=== PATIENT | male | born 1940 | race Caucasian/White ===

== ENCOUNTER 2017-12-31 15:12 | Inpatient (IN) | payer MEDICARE, OTHER ==
[~2017-12-31] VITALS: Ht 182.9 cm; Wt 101.4 kg
[~2017-12-31 15:12] MED LIST: AGM875T PO; ASP81CT PO; AVADART PO; CINNAMON PO; CYAN10007 PO; DCS100C PO; E400C PO; ENAL10TA PO; ERGO400C PO; GARLIC PO; GLIP10TA13 PO; HYDR118S10 PO; LIRA0.6P SQ; MAGN27TA4 PO; METF-380 PO; MG T1TAB2 PO; MYLANTA PO; OMEG1CAP51 PO; OXYC-12 PO; POTA99TA7 PO; SMT80CT PO; TMSL.4C PO; VITA100T4 PO; VITA80006 PO; WRF5T PO; ZLP10T PO; [UNRECOGNIZED DRUG - OTHER] PO
[2017-12-31] MEDS ORDERED: NS IV 1000 ML 1,000 ML IV SCH ×2 (15:21→17:48)
--- NOTE | 2017-12-31 15:37 | ED Fall/Injury ---
General Stated Complaint: WEAK LEGS Source: patient, EMS ([facility]) Exam Limitations: no limitations History of Present Illness Date Seen by Provider: December 31, 2017 Time Seen by Provider: 15:16 Initial Comments Patient presents to ER by [facility] with a chief complaint that he was walking from the bathroom back to his living room when he started to feel weak in his knees so he lowered himself to the ground in to his knees and then laid down because he couldn't stand back up. The weakness past but he had to have EMS come help him up. By the time they got to him he said he was on his feet and walked over and got on the gurney with just his cane. He does have a history of diabetes as well as he is on eloquent but he denies actually falling , striking his head or losing consciousness. 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 He has not missed any of his medications nor taken double that he is aware of. He is on Glimepiride. He rates his pain in both of his knees as 8 out of 10 but does not want anything for it. EMS has not given him anything for pain yet either. Patient was incontinent of bowel and bladder which she says is new for him. He says this was because he was unable to get up. He thinks he was laying there for probably about 2 hours. Allergies and Home Medications Allergies Coded Allergies: No Known Drug Allergies (Unverified , 08/08/10) Home Medications Al Hydrox/Mg Trisilicate 1 Tab.chew Tab.chew, 2 TAB.CHEW PO Q6H PRN, (Reported) Aspirin 81 Mg Chew, 81 MG PO BID, (Reported) Docusate Sodium 100 Mg Cap, 200 MG PO BID, (Reported) Enalapril Maleate 10 Mg Tablet, 20 MG PO DAILY, (Reported) Glipizide 10 Mg Tablet, 1 EACH PO BID, (Reported) Hydrocodone/Acetaminophen 1 Each Tablet, 1 EACH PO Q6H PRN, (Reported) Liraglutide 0.6 Mg/0.1 Ml Pen.injctr, 1.8 MG SQ DAILY Prescribed by: JAZMYN MOSCOSO on 02/26/12 1211 Metformin Hcl 1,000 Mg Tablet, 1 EACH PO BID WITH MEALS, (Reported) [place]-3 Fatty Acids/Fish Oil 1 Each Capsule, 1 EACH PO BID, (Reported) Simethicone 80 Mg Chew, 160 MG PO PC, (Reported) Tamsulosin Hcl 0.4 Mg Cap, 0.4 MG PO DAILY, (Reported) Warfarin Sodium 5 Mg Tablet, 10 MG PO DAILY, (Reported) Zolpidem Tartrate 10 Mg Tab, 10 MG PO HS PRN, (Reported) [mylanta susp] , 30 ML PO QID PRN, (Reported) Patient Home Medication List Home Medication List Reviewed: Yes Review of Systems Constitutional: No chills, No diaphoresis, No fever, No malaise Eyes: Denies Blindness, Denies Blurred Vision Ears, Nose, Mouth, Throat: denies ear pain, denies ear discharge; nose discharge (clear); denies epistaxis, denies throat pain, denies throat swelling Respiratory: No cough, No phlegm, No short of breath, No wheezing Cardiovascular: No chest pain, No Hx of Intervention, No palpitations, No syncope, No vascular heart diseas Gastrointestinal: No abdominal pain, No constipation, No diarrhea, No nausea; other (incontinence of bowel and bladder) Genitourinary: No dysuria Musculoskeletal: No back pain; joint pain (bilateral knees) Past Dqofkja-Aflzit-Kwcprp Hx Patient Social History Alcohol Use: Occasionally Uses Alcohol Beverage of Choice: Beer, Whiskey, Wine Recreational Drug Use: No Smoking Status: Former Smoker Type Used: Cigarettes Former Smoker, Quit: December 31, 2017 Recent Foreign Travel: No Contact w/Someone Who Travel: No Immunizations Up To Date Date of Influenza Vaccine: May 13, 2011 Past Medical History Reproductive Disorders: No Physical Exam Vital Signs Vital Signs - First Documented 12/31/17 15:43 Temp 97.5 Pulse 95 Resp 18 B/P (MAP) 190/85 (120) O2 Delivery Room Air Capillary Refill : General Appearance: WD/WN, no apparent distress HEENT: PERRL/EOMI, normal ENT inspection, TMs normal, pharynx normal Neck: non-tender, full range of motion, supple, normal inspection Cardiovascular: normal peripheral pulses, regular rate, rhythm, no edema Respiratory: chest non-tender, lungs clear, normal breath sounds, no respiratory distress, no accessory muscle use Peripheral Pulses: 2+ Dorsalis Pedis (R), 2+ Left Dors-Pedis (L), 2+ Radial Pulses (R), 2+ Radial Pulses (L) Gastrointestinal: normal bowel sounds, non tender, soft Back: normal inspection, no vertebral tenderness Extremities: other (ecchymosis over bilateral knees with pain to range of motion. Antalgic gait with assistance. 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 as tested, no motor/sensory deficits, alert, normal mood/affect, oriented x 3 Skin: warm/dry, ecchymosis (dio knees) Progress/Results/Core Measures Results/Orders Lab Results Laboratory Tests Test 12/31/17 16:30 12/31/17 18:00 Range/Units White Blood Count 18.3 H 4.3-11.0 10^3/uL Red Blood Count 4.71 4.35-5.85 10^6/uL Hemoglobin 13.8 13.3-17.7 G/DL Hematocrit 39 L 40-54 % Mean Corpuscular Volume 83 80-99 FL Mean Corpuscular Hemoglobin 29 25-34 PG Mean Corpuscular Hemoglobin Concent 35 32-36 G/DL Red Cell Distribution Width 13.1 10.0-14.5 % Platelet Count 190 130-400 10^3/uL Mean Platelet Volume 11.4 H 7.4-10.4 FL Neutrophils (%) (Auto) 86 H 42-75 % Lymphocytes (%) (Auto) 7 L 12-44 % Monocytes (%) (Auto) 7 0-12 % Eosinophils (%) (Auto) 0 0-10 % Basophils (%) (Auto) 0 0-10 % Neutrophils # (Auto) 15.7 H 1.8-7.8 X 10^3 Lymphocytes # (Auto) 1.2 1.0-4.0 X 10^3 Monocytes # (Auto) 1.3 H 0.0-1.0 X 10^3 Eosinophils # (Auto) 0.1 0.0-0.3 10^3/uL Basophils # (Auto) 0.1 0.0-0.1 10^3/uL Neutrophils % (Manual) 85 % Lymphocytes % (Manual) 7 % Monocytes % (Manual) 6 % Eosinophils % (Manual) 0 % Basophils % (Manual) 0 % Band Neutrophils 2 % Blood Morphology Comment NORMAL Sodium Level 140 135-145 MMOL/L Potassium Level 4.9 3.6-5.0 MMOL/L Chloride Level 111 H 98-107 MMOL/L Carbon Dioxide Level 18 L 21-32 MMOL/L Anion Gap 11 5-14 MMOL/L Blood Urea Nitrogen 28 H 7-18 MG/DL Creatinine 1.65 H 0.60-1.30 MG/DL Estimat Glomerular Filtration Rate 41 BUN/Creatinine Ratio 17 Glucose Level 200 H 70-105 MG/DL Calcium Level 9.4 8.5-10.1 MG/DL Magnesium Level 2.1 1.8-2.4 MG/DL Total Bilirubin 0.4 0.1-1.0 MG/DL Aspartate Amino Transf (AST/SGOT) 16 5-34 U/L Alanine Aminotransferase (ALT/SGPT) 14 0-55 U/L Alkaline Phosphatase 52 40-136 U/L Total Creatine Kinase 121 30-200 U/L Troponin I < 0.30 <0.30 NG/ML B-Type Natriuretic Peptide 14.2 <100.0 PG/ML Total Protein 7.2 6.4-8.2 GM/DL Albumin 4.1 3.2-4.5 GM/DL Urine Color YELLOW Urine Clarity SLIGHTLY CLOUDY Urine pH 5 5-9 Urine Specific [place] 1.025 H 1.016-1.022 Urine Protein 3+ H NEGATIVE Urine Glucose (UA) 3+ H NEGATIVE Urine Ketones 1+ H NEGATIVE Urine Nitrite NEGATIVE NEGATIVE Urine Bilirubin NEGATIVE NEGATIVE Urine Urobilinogen NORMAL NORMAL MG/DL Urine Leukocyte Esterase 3+ H NEGATIVE Urine RBC (Auto) 2+ H NEGATIVE Urine RBC 0-2 /HPF Urine WBC 50-100 H /HPF Urine Squamous Epithelial Cells NONE /HPF Urine Crystals NONE /LPF Urine Amorphous Sediment MOD LILIA URATES H /LPF Urine Bacteria LARGE H /HPF Urine Casts NONE /LPF Urine Mucus NEGATIVE /LPF Urine Culture Indicated YES My Orders Orders - KASSI FINLEY BNP (12/31/17 15:21) Cbc With Automated Diff (12/31/17 15:21) Comprehensive Metabolic Panel (12/31/17 15:21) Magnesium (12/31/17 15:21) Troponin I (12/31/17 15:21) Ua Culture If Indicated (12/31/17 15:21) Chest 1 View, Ap/Pa Only (12/31/17 15:21) Saline Lock/Iv-Start (12/31/17 15:21) Ns Iv 1000 Ml (Sodium Chloride 0.9%) (12/31/17 15:21) Ekg Tracing (12/31/17 15:21) Continuous Ekg Monitoring (12/31/17 15:21) Creatine Kinase (12/31/17 15:37) Knee, 3 Views, Bilateral (12/31/17 15:37) Manual Differential (12/31/17 16:30) Acetaminophen Tablet (Tylenol Tablet) (12/31/17 18:00) Ns Iv 1000 Ml (Sodium Chloride 0.9%) (12/31/17 17:48) Urine Culture (12/31/17 18:00) Ceftriaxone Injection (Rocephin Injectio (12/31/17 18:45) Vital Signs/I&O 12/31/17 15:43 Temp 97.5 Pulse 95 Resp 18 B/P (MAP) 190/85 (120) O2 Delivery Room Air Progress Progress Note #1: Time: 15:42 Progress Note EKG, chest x-ray, blood and urine to look for a cause for why he got weak. We' ll check a CPK since he was down. He was walking afterwards which is good however we'll still x-ray of the knees looking for fracture. He may have just bruised them secondary to Eliquis use. He has declined CT of the head and neck after discussing the risks, benefits and alternatives with the provider. Echocardiogram [address] Malone. Aortic root, left atrium normal Aortic valve mildly calcified and sclerotic. No significant aortic regurg or stenosis. Mitral valve not well seen. No mitral regurgitation. Right-sided heart is enlarged. Mild right systolic dysfunction. Mild tricuspid regurgitation. EF 50%. Progress Note #2: Time: 18:55 Progress Note Had increasing pain in his back for which he usually uses [place]. We gave him 50 g of fentanyl and some Zofran after having a single episode of vomitus. We will start Rocephin 1 g IV. Initial ECG Impression Date: December 31, 2017 Initial ECG Impression Time: 16:16 Initial ECG Rate: 93 Initial ECG Rhythm: Normal Sinus Initial ECG Intervals: QT (478) Initial ECG Impression: Normal, Nonspecific Changes (right bundle-branch block) Diagnostic Imaging Diagonstic Imaging: Xray Plain Films/CT/US/NM/MRI: chest (1v) Comments [facility] [place], [place] NAME: YULISSA WILDER [facility] REC#: [id number] PT STATUS: REG ER : 1940 PHYSICIAN: KASSI FINLEY MD ADMIT DATE: 12/31/17/ER Draft Date of Exam:12/31/17 CHEST 1 VIEW, AP/PA ONLY INDICATION: Dizzy, incontinence. COMPARISON: 03/13/2012. FINDINGS: Heavy calcifications of the costochondral cartilage of the distal first ribs noted bilaterally incidentally. There is chronic elevation of the right diaphragm. There is no focal consolidation. The heart size and pulmonary vascularity are stable. IMPRESSION: Elevated right diaphragm as a chronic finding stable. No acute cardiopulmonary abnormality apparent. Dictated on workstation # [id number] Dict: 12/31/17 1718 Trans: 12/31/17 1724 [id number] Interpreted by: FOREIGN SHELTON Electronically signed by: Reviewed: Reviewed by Me Diagonstic Imaging: Xray Plain Films/CT/US/NM/MRI: knee (dio) Comments [facility] [place] [place] NAME: YULISSA WILDER [facility] REC#: [id number] PT STATUS: REG ER : 1940 PHYSICIAN: KASSI FINLEY MD ADMIT DATE: 12/31/17/ER Draft Date of Exam:12/31/17 KNEE, 3 VIEWS, BILATERAL INDICATION: Knee pain. 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 No convincing evidence for substantial joint effusion. Atherosclerotic vascular calcifications are chronic. Some chronic appearing well-corticated fragmentation at the anterior tibial apophysis and meniscal calcifications. IMPRESSION: No acute appearing abnormality. Dictated on workstation # [id number] Dict: 12/31/17 1719 Trans: 12/31/17 1725 [id number] Interpreted by: FOREIGN SHELTON Electronically signed by: Reviewed: Reviewed by Me Departure Communication (Admissions) Time/Spoke to Admitting Phy: 18:[address] Garcia and she agrees with antibiotics, fluids and nausea medicine and she will see the patient in the morning. Observation. Impression Primary Impression: Fall Qualified Codes: W19.XXXA - Unspecified fall, initial encounter Additional Impressions: UTI (urinary tract infection) Qualified Codes: N30.00 - Acute cystitis without hematuria Nausea & vomiting Qualified Codes: R11.2 - Nausea with vomiting, unspecified Disposition: ADMITTED INPATIENT Condition: Stable Admissions Decision to Admit Reason: Admit from ER (General) Decision to Admit/Date: December 31, 2017 Time/Decision to Admit Time: 18:44 Departure-Patient Inst. Referrals: [facility] (PCP) Primary Care Physician Copy Copies To 1: YANDEL MCGEE TITUS J December 31, 2017 15:37
[2017-12-31 16:54] LABS: BASOPHILS # (AUTO) 0.1 10^3/uL (0.0-0.1); BASOPHILS % (AUTO) 0 % (0-10); EOSINOPHILS # (AUTO) 0.1 10^3/uL (0.0-0.3); EOSINOPHILS % (AUTO) 0 % (0-10); HEMATOCRIT 39 % (40-54); HEMOGLOBIN 13.8 G/DL (13.3-17.7); LYMPHOCYTES # (AUTO) 1.2 X 10^3 (1.0-4.0); LYMPHOCYTES % (AUTO) 7 % (12-44); MEAN CORPUSCULAR HEMOGLOBIN 29 PG (25-34); MEAN CORPUSCULAR HGB CONC 35 G/DL (32-36); MEAN CORPUSCULAR VOLUME 83 FL (80-99); MEAN PLATELET VOLUME 11.4 FL (7.4-10.4); MONOCYTES # (AUTO) 1.3 X 10^3 (0.0-1.0); MONOCYTES % (AUTO) 7 % (0-12); NEUTROPHILS # (AUTO) 15.7 X 10^3 (1.8-7.8); NEUTROPHILS % (AUTO) 86 % (42-75); PLATELET COUNT 190 10^3/uL (130-400); RED BLOOD COUNT 4.71 10^6/uL (4.35-5.85); RED CELL DISTRIBUTION WIDTH 13.1 % (10.0-14.5); WHITE BLOOD COUNT 18.3 10^3/uL (4.3-11.0)
[2017-12-31 17:13] LABS: ALANINE AMINOTRANSFERASE 14 U/L (0-55); ALBUMIN 4.1 GM/DL (3.2-4.5); ALKALINE PHOSPHATASE 52 U/L (40-136); BILIRUBIN,TOTAL 0.4 MG/DL (0.1-1.0); BUN/CREATININE RATIO 17; CALCIUM 9.4 MG/DL (8.5-10.1); CARBON DIOXIDE 18 MMOL/L (21-32); CHLORIDE 111 MMOL/L (98-107); CREATINE KINASE 121 U/L (30-200); CREATININE SERUM 1.65 MG/DL (0.60-1.30); GFR ESTIMATED 41; GLUCOSE 200 MG/DL (70-105); MAGNESIUM 2.1 MG/DL (1.8-2.4); POTASSIUM 4.9 MMOL/L (3.6-5.0); SODIUM 140 MMOL/L (135-145); TOTAL PROTEIN 7.2 GM/DL (6.4-8.2)
--- NOTE | 2017-12-31 17:25 | Diagnostic Imaging Report ---
INDICATION: Dizzy, incontinence. COMPARISON: 03/13/2012. FINDINGS: Heavy calcifications of the costochondral cartilage of the distal first ribs noted bilaterally incidentally. There is chronic elevation of the right diaphragm. There is no focal consolidation. The heart size and pulmonary vascularity are stable. IMPRESSION: Elevated right diaphragm as a chronic finding stable. No acute cardiopulmonary abnormality apparent. Dictated by: Dictated on workstation # [id number]
--- NOTE | 2017-12-31 17:25 | Diagnostic Imaging Report ---
INDICATION: Knee pain. 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 No convincing evidence for substantial joint effusion. Atherosclerotic vascular calcifications are chronic. Some chronic appearing well-corticated fragmentation at the anterior tibial apophysis and meniscal calcifications. IMPRESSION: No acute appearing abnormality. Dictated by: Dictated on workstation # [id number]
[2017-12-31 17:30] LABS: BAND NEUTROPHILS 2 %; BASOPHILS % (MANUAL) 0 %; EOSINOPHILS % (MANUAL) 0 %; LYMPHOCYTES % (MANUAL) 7 %; MONOCYTES % (MANUAL) 6 %; NEUTROPHILS % (MANUAL) 85 %; RBC MORPH NORMAL
[2017-12-31] MEDS ORDERED: ACETAMINOPHEN 500 MG TAB (TYLENOL) PO ONE (18:00)
[2017-12-31 18:12] LABS: BILIRUBIN,URINE NEGATIVE (NEGATIVE); CLARITY,URINE SLIGHTLY CLOUDY; COLOR,URINE YELLOW; GLUCOSE, URINE (UA) 3+ (NEGATIVE); KETONES,URINE 1+ (NEGATIVE); LEUKOCYTE ESTERASE ,URINE 3+ (NEGATIVE); NITRITE,URINE NEGATIVE (NEGATIVE); PH,URINE 5 (5-9); PROTEIN,URINE 3+ (NEGATIVE); UROBILINOGEN,URINE NORMAL (NORMAL)
[2017-12-31 18:23] LABS: AMORPHOUS SEDIMENT,UR MOD AMOR URATES /LPF; BACTERIA,URINE LARGE /HPF; RBC,URINE 0-2 /HPF; WBC,URINE 50-100 /HPF
[2017-12-31] MEDS ORDERED: ONDANSETRON 4 MG/2 ML (SDV) Z0FRAN ONE (18:38)
[2017-12-31] MEDS ORDERED: fentaNYL INJECTION 100 MCG/2 ML AMP ONE (18:38)
[2017-12-31] MEDS ORDERED: fentaNYL INJECTION 100 MCG/2 ML AMP IVP ONE (18:45)
[2017-12-31] MEDS ORDERED: cefTRIAXone INJECTION 1,000 MG in NS (IVPB) 50 ML IV ONE (18:45)
[2017-12-31] MEDS ORDERED: ONDANSETRON 4 MG/2 ML (SDV) Z0FRAN IVP ONE (18:45)
--- OUTSIDE RECORDS SUMMARY | 2017-12-31 19:30 | XMS REPORT ---
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 42649238 Problem Other hammer toe(s) (acquired), right foot M20.41 Active 793632706 Problem DM neuro manif type II E11.49 Active 68557901 Problem Essential hypertension I10 Active 80123902 Problem Diabetes type 2, uncontrolled E11.65 Active 512229858 Problem Urge incontinence of urine N39.41 Active 88842515 Problem 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 804020708 ALLERGIES No Information SOCIAL HISTORY Never Assessed PLAN OF CARE VITAL SIGNS MEDICATIONS Medication Instructions Dosage Frequency Start Date End Date Duration Status Oxybutynin Chloride 5 mg Orally Twice a day 1 tablet 12h 07 Oct, 2016 Oct, 0 days Active RESULTS No Results PROCEDURES No Known procedures IMMUNIZATIONS No Known Immunizations MEDICAL (GENERAL) HISTORY Type Description Date Medical History hypertension Medical History type II diabetes Medical History hyperlipidemia Medical History deep vein thrombosis bilateral legs 2010 Medical History 05/03/2015 Monofilament Abnormal. Medical History 09/23/2014 Micro alb. Normal Medical History Abnormality of gait Medical History Personal history of venous thrombosis and embolism Medical History Hypertension Medical History Weak Bladder Dr. Cox 12/[address] abdomen 03/22/17 -IVC filter within lumen of inferior vena cava, lung bases showed 2mm nodule in lingula Surgical History cholecystectomy-by Dr. Espinal 2012 Surgical History arthroscopic knee surgery-left for torn cartilidge 2003, 2007 Surgical History permanent vena cave filter placed at [facility] by Surgical History TURP-Dr. Kirk 2009 Hospitalization History Just surgeries listed above
--- OUTSIDE RECORDS SUMMARY | 2017-12-31 19:30 | XMS REPORT ---
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
--- OUTSIDE RECORDS SUMMARY | 2017-12-31 19:30 | XMS REPORT ---
Author Author JANETH PATIÑO Organization [employer] Address Unknown Phone Unavailable Care Team Providers Care Tilesetter Name Role Phone JANETH PATIÑO CP Unavailable Allergies No Known Allergies Problems Problem Type Condition Code Onset Dates Condition Status Problem Encounter for long-term (current) use of other medications V58.69 Active Problem Diabetes mellitus without mention of complication, type II or unspecified type, not stated as uncontrolled 250.00 Active Problem Personal history of venous thrombosis and embolism V12.51 Active Problem [facility] current use of anticoagulant Z79.01 Active Problem Type II or unspecified type diabetes mellitus with neurological manifestations, 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 Problem Diabetes type 2, uncontrolled E11.65 Active Problem Abnormality of gait 781.2 Active Problem Need for prophylactic vaccination and inoculation, Influenza V04.81 Active Problem Hypertension 401.9 Active Problem Other and unspecified hyperlipidemia 272.4 Active Assessment Diabetes type 2, uncontrolled E11.65 Active Assessment Encounter for long-term (current) use of other medications Z79.899 Active Problem Routine general medical examination at health care facility V70.0 Active Medications No Known Medications Procedures Procedure Coding System Code Date PROTHROMBIN TIME CPT-4 50890 Sep 01, 2015 GLUCOSE BLOOD TEST CPT-4 52142 Sep 01, 2015 Results No Known Results Summary Purpose [employer] Submission
--- OUTSIDE RECORDS SUMMARY | 2017-12-31 19:30 | XMS REPORT ---
Author Author JANETH PATIÑO [employer] Address Unknown Phone Unavailable Care Team Providers Care Installer Interior Assemblies Name Role Phone JANETH PATIÑO CP Unavailable Allergies No Known Allergies Problems Problem Type Condition Code Onset Dates Condition Status Problem Routine general medical examination at health care facility V70.0 Active Assessment group home current use of anticoagulant Z79.01 Active Problem Other and unspecified hyperlipidemia 272.4 Active Problem Abnormality of gait 781.2 Active Problem Hypertension 401.9 Active Problem Personal history of venous thrombosis and embolism V12.51 Active Problem Encounter for long-term (current) use of other medications V58.69 Active Problem Need for prophylactic vaccination and inoculation, Influenza V04.81 Active Problem Diabetes mellitus without mention of complication, type II or unspecified type, not stated as uncontrolled 250.00 Active Medications No Known Medications Procedures Procedure Coding System Code Date PROTHROMBIN TIME CPT-4 33177 Jun 09, 2015 Results No Known Results Summary Purpose [employer] Submission
--- OUTSIDE RECORDS SUMMARY | 2017-12-31 19:30 | XMS REPORT ---
Author Author JANETH PATIÑO [employer] Address Unknown Phone Unavailable Care Team Providers Care Gold Assayer Name Role Phone JANETH PATIÑO Unavailable Allergies No Known Allergies Problems Problem Type Condition Code Onset Dates Condition Status Problem Routine general medical examination at health care facility V70.0 Active Assessment Diabetes mellitus without mention of complication, type II or unspecified type, not stated as uncontrolled 250.00 Active Problem Other and unspecified hyperlipidemia 272.4 [...] not stated as uncontrolled 250.00 Active Medications Medication Code System Code Instructions Start Date End Date Status Dosage Metformin HCl NDC 51708112058 1000MG Orally Twice a day 1 tablet with a meal warfarin NDC 0 6 mg oral Once a day October 22, 2014 1 tablet Results No Known Results Summary Purpose [employer] Submission
--- OUTSIDE RECORDS SUMMARY | 2017-12-31 19:30 | XMS REPORT ---
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 current 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 of anticoagulant Z79.01 Active Problem Routine general medical examination at health care facility V70.0 Active Problem correction current use of anticoagulant Z79.01 Active Problem Type II or unspecified type diabetes mellitus with neurological manifestations, 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 Problem Diabetes type 2, uncontrolled E11.65 Active Problem Abnormality of gait 781.2 Active Problem Need for prophylactic vaccination and inoculation, Influenza V04.81 Active Problem Hypertension 401.9 Active Problem Other and unspecified hyperlipidemia 272.4 Active Medications No Known Medications Procedures Procedure Coding System Code Date PROTHROMBIN TIME CPT-4 96925 December 03, 2015 Results No Known Results Summary Purpose [employer] Submission
--- OUTSIDE RECORDS SUMMARY | 2017-12-31 19:30 | XMS REPORT ---
Author Author JANETH PATIÑO [employer] Address Unknown Phone Unavailable Care Team Providers Care Shore Man Name Role Phone JANETH PATIÑO Unavailable Allergies No Known Allergies Problems Problem Type Condition Code Onset Dates Condition Status Assessment shelter current use of anticoagulant Z79.01 Active Problem shelter current use of anticoagulant Z79.01 Active Problem [...] Coding System Code Date PROTHROMBIN TIME CPT-4 37608 Mar 17, 2016 Results No Known Results Summary Purpose [employer] Submission
--- OUTSIDE RECORDS SUMMARY | 2017-12-31 19:30 | XMS REPORT ---
Author Author JANETH PATIÑO [employer] Address Unknown Phone Unavailable Care Team Providers Care Wheel And Pinion Inspector Name Role Phone JANETH PATIÑO Unavailable Allergies No Known Allergies Problems Problem Type Condition Code Onset Dates Condition Status Assessment senior living current use of anticoagulant Z79.01 Active Problem senior living current use of anticoagulant Z79.01 Active Problem [...] Coding System Code Date PROTHROMBIN TIME CPT-4 20349 February 18, 2016 Results No Known Results Summary Purpose [employer] Submission
--- OUTSIDE RECORDS SUMMARY | 2017-12-31 19:30 | XMS REPORT ---
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 Z79.01 Active Problem Encounter for long-term (current) use of other medications V58.69 Active Problem Routine general medical examination at health care facility V70.0 Active Problem Hypertension 401.9 Active Problem Other and unspecified hyperlipidemia 272.4 Active Problem residential current use of anticoagulant Z79.01 Active Problem Diabetes mellitus without mention of complication, type II or unspecified type, not stated as uncontrolled 250.00 Active Problem Personal history of venous thrombosis and embolism V12.51 Active Problem Abnormality of gait 781.2 Active Problem Need for prophylactic vaccination and inoculation, Influenza V04.81 Active Medications No Known Medications Procedures Procedure Coding System Code Date PROTHROMBIN TIME CPT-4 76576 Jun 30, 2015 Results No Known Results Summary Purpose [employer] Submission
--- OUTSIDE RECORDS SUMMARY | 2017-12-31 19:30 | XMS REPORT ---
Author Author ISABEL CRAVEN Organization [employer] Address Unknown Phone Unavailable Care Team Providers Care Agitator Operator Name Role Phone ISABEL CRAVEN CP Unavailable Allergies No Known Allergies Problems Problem Type Condition Code Onset Dates Condition Status Assessment Encounter for immunization Z23 Active Problem Personal history of venous thrombosis and embolism V12.51 Active Assessment [facility] current use of anticoagulant Z79.01 Active Problem Diabetes type 2, uncontrolled E11.65 Active Problem long term care pharmacist current use of anticoagulant Z79.01 Active Problem Essential hypertension I10 Active Problem Other and unspecified hyperlipidemia 272.4 Active Problem Abnormality of gait 781.2 Active Problem Type II or unspecified type diabetes mellitus with neurological manifestations, 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 Problem Hypertension 401.9 Active Medications No Known Medications Procedures Procedure Coding System Code Date FLUARIX QUAD P-FREE 3 AND UP .50 2015 CPT-4 10507 Jun 09, 2016 SINGLE IMMUNIZATION ADMIN CPT-4 88973 Jun 09, 2016 PROTHROMBIN TIME CPT-4 64480 Jun 09, 2016 Results Name Result Date Reference Range Unit Abnormality Flag INR (IN HOUSE) ----INR 1.8 [id number] 1.10 - 3.30 ----PREVIOUS INR 3.2 [id number] ----CURRENT COUMADIN DOSE 5 mg M,W,F & 7.5 mg AOD 20160610 ----NEW COUMADIN DOSE no change, recheck in 1 week 20160610 Immunizations Vaccine Administration Date FLUARIX QUAD P-FREE 3 AND UP .50 2015Jun 09, 2016 Summary Purpose [employer] Submission
--- OUTSIDE RECORDS SUMMARY | 2017-12-31 19:31 | XMS REPORT ---
Author Author JACQUELINE YAN Organization [employer] Address Unknown Phone Unavailable Care Team Providers Care Infection Control Practitioner Name Role Phone JACQUELINE YAN CP Unavailable Allergies No Known Allergies Problems Problem Type Condition Code Onset Dates Condition Status Problem Routine general medical examination at health care facility V70.0 Active Problem Personal history of venous thrombosis and embolism V12.51 Active Problem Encounter for long-term (current) use of other medications V58.69 Active Assessment Type II or unspecified type diabetes mellitus with neurological manifestations, 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 Assessment Onychomycosis B35.1 Active Problem Type II or unspecified type diabetes mellitus with neurological manifestations, 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 Problem Hypertension 401.9 Active Problem residential current use of anticoagulant Z79.01 Active Problem Need for prophylactic vaccination and inoculation, Influenza V04.81 Active Problem Diabetes mellitus without mention of complication, type II or unspecified type, not stated as uncontrolled 250.00 Active Problem Other and unspecified hyperlipidemia 272.4 Active Problem Abnormality of gait 781.2 Active Medications No Known Medications Procedures Procedure Coding System Code Date [facility] VISIT ESTABLISHED PATIENT CPT-4 G0467 Jul 16, 2015 Office Visit, Est Pt., Level 3 CPT-4 07245 Jul 16, 2015 DEBRIDE NAIL, 6 OR MORE CPT-4 50542 Jul 16, 2015 Vital Signs Date/Time: Jul 16, 2015 Blood Pressure Diastolic 80 mmHg Blood Pressure Systolic 140 mmHg Height 72 in Results Name Result Date Reference Range Unit Abnormality Flag DEBRIDE NAIL >6 Summary Purpose [employer]ClinicalWorks Submission
--- OUTSIDE RECORDS SUMMARY | 2017-12-31 19:31 | XMS REPORT ---
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
--- OUTSIDE RECORDS SUMMARY | 2017-12-31 19:31 | XMS REPORT ---
Author Author JANETH PATIÑO [employer] Address Unknown Phone Unavailable Care Team Providers Care Beauty Artist Name Role Phone JANETH PATIÑO Unavailable Allergies No Known Allergies Problems Problem Type Condition ICD-9 Code Onset Dates Condition Status Problem Routine general medical examination at health care facility V70.0 Active Problem Other and unspecified hyperlipidemia 272.4 [...] Date End Date Status Dosage Metformin HCl [facility] [id number] 1000MG Orally Twice a day 1 tablet with a meal Results No Known Results Summary Purpose [employer] Submission
--- OUTSIDE RECORDS SUMMARY | 2017-12-31 19:31 | XMS REPORT ---
Author Author JANETH PATIÑO [employer] Address Unknown Phone Unavailable Care Team Providers Care Stock Patch Sawyer Name Role Phone JANETH PATIÑO Unavailable Allergies No Known Allergies Problems Problem Type Condition Code Onset Dates Condition Status Assessment care home current use of anticoagulant Z79.01 Active Problem care home current use of anticoagulant Z79.01 Active [...] Coding System Code Date PROTHROMBIN TIME CPT-4 28668 Mar 31, 2016 Results No Known Results Summary Purpose [employer]ClinicalWorks Submission
--- OUTSIDE RECORDS SUMMARY | 2017-12-31 19:31 | XMS REPORT ---
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 08959999 Problem Diabetes type 2, uncontrolled E11.65 Active 765260155 Problem retirement current use of anticoagulant Z79.01 Active 578405826 Problem Friction blister of left lower extremity, initial encounter S80.822A Active 24354384 Problem DM neuro manif type II E11.49 Active 64461728 Problem 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 965425156 Problem Essential hypertension I10 Active 35099440 Problem Other hammer toe(s) (acquired), right foot M20.41 Active 497325407 Problem Urge incontinence of urine N39.41 Active 42265489 ALLERGIES No Information ENCOUNTERS Encounter Location Date Diagnosis [id number] [id number] Sep, retirement current use of anticoagulant Z79.01 [place] [id number] [id number] Sep, [address] [id number] Aug, Friction blister of left lower extremity, subsequent encounter S80.822D ; Diabetes type 2, uncontrolled E11.65 and 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 [place] [id number] [id number] Jul, Diabetes type 2, uncontrolled E11.65 and Friction blister of left lower extremity, initial encounter S80.822A [place] [id number] [id number] Apr, Type II or unspecified type diabetes mellitus with neurological manifestations, 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 ; Encounter for immunization Z23 and Essential hypertension I10 [facility] [address] [facility] [id number] [id number] Feb, Type II or unspecified type diabetes mellitus with neurological manifestations, 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 [facility] [id number] [place] [address] Jan, Onychomycosis B35.1 ; Other hammer toe(s) (acquired), right foot M20.41 and DM neuro manif type II E11.[address] [place] [address] [id number] Jan, Type II or unspecified type diabetes mellitus with neurological manifestations, 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 ; Acute diffuse otitis externa of right ear H60.311 ; retirement current use of anticoagulant Z79.01 and Essential hypertension I10 [address] [id number] [id number] December, Urinary frequency R35.0 ; Urinary urgency R39.15 and Urge incontinence of urine N39.[id number] [place] [address] [id number] Nov, [place] [id number] [place] [address] [id number] Nov, Urinary frequency R35.0 ; Urinary urgency R39.15 ; Urge incontinence of urine N39.41 ; 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 ; Essential hypertension I10 ; Type II or unspecified type diabetes mellitus with neurological manifestations, 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 and retirement current use of anticoagulant Z79.[address] [place] [address] [id number] Nov, Diabetes type 2, uncontrolled E11.65 and Essential hypertension I10 [facility] [address] [place] [address] Sep, Urge incontinence of urine N39.41 ; Diabetes type 2, uncontrolled E11.65 and Essential hypertension I10 [address] [id number] Sep, Urge incontinence of urine N39.41 and Urinary frequency R35.0 [place] [address] [id number] Sep, Acute diffuse otitis externa of both ears H60.313 ; 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 ; Right-sided chest wall pain R07.89 and Diabetes type 2, uncontrolled E11.65 [place] [address] [id number] Aug, [address] [id number] Jul, retirement current use of anticoagulant Z79.01 ; Acute diffuse otitis externa of right ear H60.311 ; Personal history of other venous thrombosis and embolism Z86.718 and 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 [place] [address] [id number] Jul, [address] [id number] Jul, retirement current use of anticoagulant Z79.01 [place] [address] [id number] Jul, [address] [id number] Jul, retirement current use of anticoagulant Z79.01 [place] [address] [place] [id number] [place] [address] [id number] Jul, 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 [place] [address] [place] [id number] [place] [address] [id number] Jun, 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 [id number] Jun, retirement current use of anticoagulant Z79.[address] [id number] Jun, retirement current use of anticoagulant Z79.01 ; Essential hypertension I10 ; Type II or unspecified type diabetes mellitus with neurological manifestations, 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 and Encounter for therapeutic drug level monitoring Z51.81 [place] [id number] [place] [address] [id number] Jun, retirement current use of anticoagulant Z79.01 [facility] [id number] [place] [phone] Jun, [facility] [place] [address] [id number] Jun, 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 [facility] [place] [id number] [place] [address] [id number] May, 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 and Encounter for immunization Z23 [place] [id number] [place] [address] [id number] May, 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 [facility] [place] [id number] [place] [address] [id number] Apr, 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 ; Diabetes type 2, uncontrolled E11.65 and Essential hypertension I10 [facility] [place] [id number] [place] [address] [phone] Apr, retirement current use of anticoagulant Z79.01 [facility] [place] [id number] [place] [address] [id number] Apr, 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 [facility] [address] [address] Mar, [facility] [address] [place] [address] [phone] Mar, 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 [facility] [address] [facility] [id number] [place] [phone] Mar, [facility] [place] [address] [place] [address] [id number] Mar, [facility] [place] [address] [place] [address] [phone] Mar, 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 ; Essential (primary) hypertension I10 and Vertigo R42 [place] [address] [id number] Mar, [place] [address] [id number] Mar, 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 [place] [address] [place] [id number] [place] [address] [id number] Feb, [place] [address] [id number] Feb, 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 [facility] [place] [address] [place] [id number] [place] [address] [id number] Feb, 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 [id number] Feb, 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 [place] [address] [id number] Jan, Diabetes type 2, uncontrolled E11.65 ; 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 ; Impacted cerumen of right ear H61.21 and Encounter for immunization Z23 [place] [id number] [place] [address] [phone] Jan, 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 [place] [address] [place] [id number] [place] [address] [id number] December, 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 [facility] [place] [address] [place] [id number] [place] [address] [id number] Nov, retirement current use of anticoagulant Z79.01 [facility] [place] [address] [address] [place] [id number] [place] [address] [id number] Nov, retirement current use of anticoagulant Z79.01 [facility] [place] [address] [place] [id number] [place] [address] [phone] Nov, 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 [facility] [place] [address] [place] [id number] [place] [address] [id number] Oct, [facility] [id number] [place] [address] [phone] Oct, Diabetes type 2, uncontrolled E11.65 and retirement current use of anticoagulant Z79.01 [facility] [place] [id number] [place] [address] [id number] Oct, [facility] [place] [id number] [place] [address] [id number] Sep, 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 [facility] [place] [address] [address] [place] [id number] [place] [address] [id number] Aug, [place] [id number] [place] [address] [id number] Aug, [facility] [place] [address] [place] [address] [id number] Aug, Encounter for long-term (current) use of other medications Z79.899 and Diabetes type 2, uncontrolled E11.65 [place] [address] [place] [address] [id number] Jul, [place] [address] [place] [address] [id number] Jul, 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 ; Diabetes type 2, uncontrolled E11.65 and Other and unspecified hyperlipidemia 272.[address] [place] [address] [id number] Jul, 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 [facility] [address] [address] Jul, Onychomycosis B35.1 and Type II or unspecified type diabetes mellitus with neurological manifestations, 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 [place] [id number] [place] [address] [id number] Jul, retirement current use of anticoagulant Z79.01 [facility] [address] [place] [address] [id number] Jun, retirement current use of anticoagulant Z79.01 [facility] [place] [address] [place] [address] [id number] Jun, 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 [place] [address] [id number] Jun, Encounter for long-term (current) use of other medications Z79.899 [address] [place] [address] [id number] May, 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 [place] [address] [place] [address] [id number] May, Diabetes mellitus without mention of complication, type II or unspecified type, not stated as uncontrolled 250.00 [place] [address] [place] [address] [id number] Apr, retirement current use of anticoagulant therapy V58.61 [address] [place] [address] [id number] Apr, Diabetes mellitus without mention of complication, type II or unspecified type, not stated as uncontrolled 250.00 ; Influenza vaccine administered V04.81 ; Onycholysis of toenail 703.8 and Nail fungus 110.1 [place] [address] [place] [address] [id number] Apr, [place] [address] [place] [address] [id number] Apr, retirement (current) use of anticoagulants V58.61 [address] [place] [address] [id number] Apr, Diabetes mellitus without mention of complication, type II or unspecified type, not stated as uncontrolled 250.[address] [place] [address] [id number] Mar, Other and unspecified hyperlipidemia 272.4 [place] [address] [place] [address] [id number] Mar, Other and unspecified hyperlipidemia 272.4 and Hypertension 401.[address] [place] [address] [id number] Mar, Personal history of venous thrombosis and embolism V12.51 and Encounter for long-term (current) use of other medications V58.69 [address] [id number] Feb, 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 (current) use of anticoagulants V58.[address] [place] [address] [id number] Feb, Personal history of venous thrombosis and embolism V12.51 [place] [address] [place] [address] [id number] Jan, Personal history of venous thrombosis and embolism V12.51 [place] [address] [place] [address] [id number] Jan, Personal history of venous thrombosis and embolism V12.51 [place] [address] [place] [address] [id number] Jan, Encounter for long-term (current) use of other medications V58.69 [place] [address] [place] [address] [id number] December, Encounter for long-term (current) use of other medications V58.69 [address] [place] [address] [id number] December, Other and unspecified hyperlipidemia 272.4 and Hypertension 401.9 [place] [address] [place] [address] [id number] December, Diabetes mellitus without mention of complication, type II or unspecified type, not stated as uncontrolled 250.00 ; Other and unspecified hyperlipidemia 272.4 and Hypertension 401.9 [place] [address] [place] [address] [id number] December, Encounter for long-term (current) use of other medications V58.69 and Personal history of venous thrombosis and embolism V12.[address] [place] [address] [id number] Nov, Personal history of venous thrombosis and embolism V12.51 [facility] [address] [place] [address] [id number]- 5023 Nov, [facility] [address] [place] [id number] [place] [address] [phone] Nov, [facility] [address] [id number] [phone] Oct, [facility] [address] [facility] [id number] [address] Oct, [facility] [address] [id number] [phone] Oct, [facility] [address] [facility] [id number], [place] [address] Oct, [facility] [address] [id number] [phone] Oct, [facility] [address] [facility] [id number] [address] Oct, [facility] [address] [facility] [id number] [place] [phone] Oct, [facility] [address], [place] [address] Oct, [facility] [address] [facility] [id number] [place] [phone] Oct, [facility] [address] [facility] [id number], [place] [address] Oct, [facility] [address] [facility] [id number] [place] [id number] Sep, [facility] [address] [place] [id number] [address] Sep, [facility] [address] [facility] [id number] [place] [phone] Sep, [facility] [address] [facility] [id number][place] [address] Sep, [facility] [address] [facility] [id number] [place] [phone] Aug, [facility] [address] [facility] [id number], [place] [address] Aug, [facility] [address] [facility] [id number] [place] [phone] Aug, [facility] [address], [place] [address] Aug, [facility] [address], [place] [address] Jul, [facility] [address] [phone] Jul, [address] [place] [address] [phone] May, [facility] [address], [place] [address] May, [address] [place] [address] [id number] May, [facility] [address], [place] [address] May, [facility] [address] [place] [address]- 2546 Mar, [facility] [address] [address]- [address] Mar, [facility] [address] [address]- [address] Feb, [place] [id number] [id number] Feb, [facility] [address] [place] [id number] [address] Feb, [place] [id number] [id number] Nov, [facility] [address] [place] [id number], [place] [address] Nov, IMMUNIZATIONS No Known Immunizations SOCIAL HISTORY Never Assessed REASON FOR VISIT refills PLAN OF CARE VITAL SIGNS MEDICATIONS Medication Instructions Dosage Frequency Start Date End Date Duration Status GlipiZIDE 10MG orally 2 times daily 2 tab am 1 tab pm 90 days Active Victoza 18 MG/3ML ...INJECT (1.8MG'S) SUBCUTANEOUSLY ONCE DAILY... Active RESULTS No Results PROCEDURES No Known procedures INSTRUCTIONS MEDICATIONS ADMINISTERED No Known Medications MEDICAL (GENERAL) HISTORY Type Description Date Medical [...] History permanent vena cave filter placed at [facility] by Surgical History TURP-Dr. Kirk 2009 Hospitalization History Just surgeries listed above
--- OUTSIDE RECORDS SUMMARY | 2017-12-31 19:31 | XMS REPORT ---
Author Author JANETH PATIÑO eClinicalWorks Address Unknown Phone Unavailable Care Team Providers Care Nude Model Name Role Phone JANETH PATIÑO Unavailable Allergies No Known Allergies Problems Problem Type Condition ICD-9 Code Onset Dates Condition Status Problem Routine general medical examination at health care facility V70.0 Active Assessment USP (current) use of anticoagulants V58.61 Active Problem Other and unspecified hyperlipidemia 272.4 [...] Coding System Code Date PROTHROMBIN TIME CPT-4 83623 Apr 20, 2015 Results No Known Results Summary Purpose [employer]board[employer] Submission
--- OUTSIDE RECORDS SUMMARY | 2017-12-31 19:31 | XMS REPORT ---
Author Author ISABEL CRAVEN [facility] eClinicalWorks Address Unknown Phone Unavailable Care Team Providers Care Manager Immunology Name Role Phone ISABEL CRAVEN CP Unavailable Allergies, Adverse Reactions, Alerts Substance Reaction Event Type N.K.D.A. Info Not Available Non Drug Allergy Problems Problem Type Condition Code Onset Dates Condition Status Assessment Diabetes type 2, uncontrolled E11.65 Active Problem Personal history of venous thrombosis and embolism V12.51 Active Assessment rn long term care current use of anticoagulant Z79.01 Active Assessment Essential hypertension I10 Active Problem Diabetes type 2, uncontrolled E11.65 Active Problem alf current use of anticoagulant Z79.01 Active Problem Essential hypertension I10 Active Problem Other and unspecified hyperlipidemia 272.4 Active Problem Abnormality of gait 781.2 Active Problem Type II or unspecified type diabetes mellitus with neurological manifestations, 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 [address]-12 1,000 mg by oral route 2 times a day October 15, 2014 take 1 tablet warfarin [facility] 0 6 mg oral Once a day October 22, 2014 1 tablet Warfarin Sodium [facility] [address]-39 1 MG Orally once daily January 21, 2016 1 tablet Enalapril Maleate [facility] [address]-43 20 mg Orally twice a day .5 tab a m 1 tab pm GlipiZIDE [facility] 75167057491 10MG Orally 2 times a day 2 tab am 1 tab pm Warfarin Sodium [facility] 93875796835 5 mg Orally once daily 1 tablet Fish Oil [facility] [address]-04 500 mg December 08, 2013 2 Capsule by Oral route 1 time per day Potassium Gluconate [facility] 14[address]278 500 mg (83 mg) December 08, 2013 2 Tablet by Oral route 2 times per day Victoza [facility] [address]-67 18 MG/3ML Subcutaneous Once a day 1.8 Coumadin [facility] [address]-75 7.5 MG Orally Once a day Mar 24, 2016 1 tablet Aspirin [facility] [address]-96 81 mg December 08, 2013 1 Tablet by Oral route 2 times per day Vitamin B [address] [facility] [address]162 100 MCG Orally not defined Pravachol [facility] [address]-11 40 mg Orally Once a day Aug 12, 2015 1 tablet Procedures Procedure Coding System Code Date PROTHROMBIN TIME CPT-4 52662 May 10, 2016 Office Visit, Est Pt., Level 3 CPT-4 46183 May 10, 2016 GLYCATED HEMOGLOBIN TEST CPT-4 90722 May 10, 2016 Vital Signs Date/Time: May 10, 2016 Cardiac Monitoring Heart Rate 88 bpm Weight 239 lbs Height 72 in BMI 32.41 Index Blood Pressure Diastolic 80 mmHg Blood Pressure Systolic 140 mmHg Results Name Result Date Reference Range Unit Abnormality Flag A1C (IN HOUSE) ----A1C IN HOUSE 9.4 20160510 4.3 - 5.6 % ----Previous A1c 9.2 20160510 ----Lot [id number] ----Exp date 20160510 INR (IN HOUSE) ----Exp date 20160510 ----NEW COUMADIN DOSE no change, recheck in 2 weeks 20160510 ----Lot # [id number] ----PREVIOUS INR 1.7 20160510 ----CURRENT COUMADIN DOSE 5 mg Sa & Bhardwaj, 7.5 mg AOD 20160510 ----INR 2.5 20160510 1.10 - 3.30 Summary Purpose eClinicalWorks Submission
--- OUTSIDE RECORDS SUMMARY | 2017-12-31 19:32 | XMS REPORT ---
Author Author JOSÉ MIGUEL ERAZO Organization eClinicalWorks Address Unknown Phone Unavailable Care Team Providers Care Meat Cutter Name Role Phone JOSÉ MIGUEL ERAZO CP Unavailable Allergies, Adverse Reactions, Alerts Substance Reaction Event Type N.K.D.A. 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 Problem Hypertension 401.9 Active Medications Medication Code System Code Instructions Start Date End Date Status Dosage Pravachol [facility] 54064837677 40 mg Orally Once a day 1 tablet Fish Oil [facility] [address]-54 500 mg Orally 2 times a day December 08, 2013 2 Capsule by Oral route 1 time per day Aspirin [facility] [address]-63 81 mg December 08, 2013 1 Tablet by Oral route 2 times per day Victoza [facility] [address]-45 18 MG/3ML Subcutaneous Once a day 1.8 GlipiZIDE [facility] 35581241793 10MG 2 tab am 1 tab pm 2 times a day Orally Potassium Gluconate [facility] 53209-77137 500 mg (83 mg) December 08, 2013 2 Tablet by Oral route 2 times per day Enalapril Maleate [facility] [address]-32 20 mg Orally Once a day 1 tablet metformin [facility] [address]-06 1,000 mg by oral route 2 times a day October 15, 2014 take 1 tablet Vitamin B 12 [facility] 23[address]90 100 MCG Orally not defined Results No Known Results Summary Purpose eClinicalWorks Submission
--- OUTSIDE RECORDS SUMMARY | 2017-12-31 19:32 | XMS REPORT ---
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 41179603 Problem Other hammer toe(s) (acquired), right foot M20.41 Active 970659159 Problem DM neuro manif type II E11.49 Active 48905726 Problem Essential hypertension I10 Active 42905424 Problem Diabetes type 2, uncontrolled E11.65 Active 789528653 Problem Urge incontinence of urine N39.41 Active 02989678 Problem 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
--- OUTSIDE RECORDS SUMMARY | 2017-12-31 19:32 | XMS REPORT ---
Author Author JOSÉ MIGUEL ERAZO Organization eClinicalWorks Address Unknown Phone Unavailable Care Team Providers Care Diesel Trailer Mechanic Name Role Phone JOSÉ MIGUEL ERAZO CP Unavailable Allergies No Known Allergies Problems Problem Type Condition Code Onset Dates Condition Status Problem Personal history of venous thrombosis and embolism V12.51 Active Assessment assisted current use of anticoagulant Z79.01 Active Problem Diabetes type 2, uncontrolled E11.65 Active Problem assisted current use of anticoagulant Z79.01 Active Problem Essential hypertension I10 Active Problem Other and unspecified hyperlipidemia 272.4 Active Problem Abnormality of gait 781.2 Active Problem Type II or unspecified type diabetes mellitus with neurological manifestations, 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
--- OUTSIDE RECORDS SUMMARY | 2017-12-31 19:32 | XMS REPORT ---
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 84760561 Problem Other hammer toe(s) (acquired), right foot M20.41 Active 254012309 Problem DM neuro manif type II E11.49 Active 16959386 Problem Essential hypertension I10 Active 73519785 Problem Diabetes type 2, uncontrolled E11.65 Active 949090086 Problem Urge incontinence of urine N39.41 Active 05988261 Problem 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
--- OUTSIDE RECORDS SUMMARY | 2017-12-31 19:32 | XMS REPORT ---
Author Author JOSÉ MIGUEL ERAZO Organization [facility] Address [address] [place] [address] Care Team Providers Care Fuel Oil Clerk Name Role Phone JOSÉ MIGUEL ERAZO Unavailable PROBLEMS Type Condition ICD9-CM Code QKD27-ZX Code Onset Dates Condition Status SNOMED Code Problem Abnormality of gait 781.2 Active 20962154 Problem Personal history of venous thrombosis and embolism V12.51 Active 888036848 Problem Essential hypertension I10 Active 39265990 Problem Diabetes type 2, uncontrolled E11.65 Active 621737424 Problem Hypertension 401.9 Active 98656194 Problem Other and unspecified hyperlipidemia 272.4 Active 24182493 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
--- OUTSIDE RECORDS SUMMARY | 2017-12-31 19:32 | XMS REPORT ---
Author JANETH Williamson eClinicalWorks Address Unknown Phone Unavailable Care Team Providers Care Labeling Associate Name Role Phone JANETH PATIÑO CP Unavailable Allergies, Adverse Reactions, Alerts Substance Reaction Event Type N.K.D.A. Info Not Available Non Drug Allergy Problems Problem Type Condition Code Onset Dates Condition Status Assessment Vertigo R42 Active Assessment group home current use of anticoagulant Z79.01 Active Assessment Essential (primary) hypertension I10 Active Problem group home current use of anticoagulant Z79.01 [...] Instructions Start Date End Date Status Dosage Farxiga [facility] [address]-63 5 MG Orally Once a day Sep 09, 2015 1 tablet Victoza [facility] [address]-14 18 MG/3ML Subcutaneous Once a day 1.8 Fish Oil [facility] [address]-46 500 mg December 08, 2013 2 Capsule by Oral route 1 time per day Vitamin B 12 [facility] [address] 100 MCG Orally not defined Metformin HCl [facility] 62920888734 1000MG Orally Twice a day 1 tablet with a meal Pravastatin Sodium [facility] 66624331942 20MG TAKE ONE TABLET BY MOUTH ONCE DAILY Coumadin [facility] [address]-16 7.5 MG Orally Once a day Mar 24, 2016 1 tablet metformin [facility] [address]-02 1,000 mg October 15, 2014 take 1 tablet (1,000 mg) by oral route 2 times per day with morning and evening meals Victoza [facility] 89653108336 18 MG/3ML Subcutaneous Once a day 0.2 ml Ocuvite [facility] [address]-22 848-20-4-150 sa-prfk-em-mg December 08, 2013 1 Capsule by Oral route 1 time per day warfarin NDC 0 6 mg oral Once a day October 22, 2014 1 tablet GlipiZIDE [facility] 70127708318 10MG TAKE ONE TABLET BY MOUTH TWICE DAILY Pravachol [facility] [address]-09 40 mg Orally Once a day Aug 12, 2015 1 tablet Enalapril Maleate [facility] 00294436673 20 MG Orally Once a day 1 tablet Potassium Gluconate [facility] 906[address]2925 500 mg (83 mg) December 08, 2013 2 Tablet by Oral route 2 times per day Aspirin [facility] [address]-87 81 mg December 08, 2013 1 Tablet by Oral route 2 times per day Warfarin Sodium [facility] [address]-20 5 mg Orally once daily January 21, 2016 1 tablet Procedures Procedure Coding System Code Date PROTHROMBIN TIME CPT-4 00664 Mar 24, 2016 Office Visit, Est Pt., Level 3 CPT-4 98855 Mar 24, 2016 Vital Signs Date/Time: Mar 24, 2016 Cardiac Monitoring Heart Rate 82 bpm Weight 251.3 lbs Height 72 in BMI 34.08 Index Blood Pressure Diastolic 80 mmHg Blood Pressure Systolic 128 mmHg Results No Known Results Summary Purpose eClinicalWorks Submission
--- OUTSIDE RECORDS SUMMARY | 2017-12-31 19:32 | XMS REPORT ---
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 72397119 Problem Other hammer toe(s) (acquired), right foot M20.41 Active 264928035 Problem DM neuro manif type II E11.49 Active 45050550 Problem Essential hypertension I10 Active 22594660 Problem Diabetes type 2, uncontrolled E11.65 Active 586418535 Problem Urge incontinence of urine N39.41 Active 27943795 Problem 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 274149335 ALLERGIES No Known Allergies SOCIAL HISTORY Never Assessed PLAN OF CARE Activity Details Follow Up 4 Weeks Reason:CHM DM VITAL SIGNS Height 72 in 2016-12-15 Weight 246.0 lbs 2016-12-15 Temperature 98.3 degrees Fahrenheit 2016-12-15 Heart Rate 82 bpm 2016-12-15 Respiratory Rate 18 2016-12-15 BMI 33.36 kg/m2 2016-12-15 Blood pressure systolic 138 mmHg 2016-12-15 Blood pressure diastolic 72 mmHg 2016-12-15 MEDICATIONS Medication Instructions Dosage Frequency Start Date End Date Duration Status Victoza 18 MG/3ML Subcutaneous Once a day 1.8 24h Active Potassium Gluconate 500 mg (83 mg) orally daily 2 Tablet by Oral route 2 times per day 24h Nov, 0 Active Ocuvite 375-02-2-150 qw-xtxy-rl-mg 1 Capsule by Oral route 1 time per day Nov, Active Enalapril Maleate 20 mg Orally Once a day 1 tablet 24h Active metformin 1,000 mg by oral route 2 times a day take 1 tablet 12h 05 Oct, 2014 0 Active Fish Oil 500 mg Orally 2 times a day 2 Capsule by Oral route 1 time per day 12h Nov, Active Vitamin B 12 100 MCG Active Vasotec 20 MG orally daily 1 tablet 24h 0 Active GlipiZIDE 10MG orally 2 times daily 2 tab am 1 tab pm 0 Active Aspirin 81 mg orally daily 1 Tablet by Oral route 2 times per day 24h 28 Nov, 2013 0 Active Pravachol 40 mg Orally Once a day 1 tablet 24h 0 days Active Eliquis 5 mg Orally 2 times a day 1 tablet 12h 0 Active RESULTS No Results PROCEDURES No Known [...] History permanent vena cave filter placed at [facility] by Surgical History TURP-Dr. Kirk 2009 Hospitalization History Just surgeries listed above
--- OUTSIDE RECORDS SUMMARY | 2017-12-31 19:32 | XMS REPORT ---
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 16157087 Problem Other hammer toe(s) (acquired), right foot M20.41 Active 240228181 Problem DM neuro manif type II E11.49 Active 32288180 Problem Essential hypertension I10 Active 15564116 Problem Diabetes type 2, uncontrolled E11.65 Active 562217763 Problem Urge incontinence of urine N39.41 Active 21570166 Problem 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 503452627 ALLERGIES Unknown Allergies SOCIAL HISTORY No smoking Hx information available PLAN OF CARE Activity Details Follow Up 4 Weeks Reason:CHM DVT and DM FU VITAL SIGNS MEDICATIONS Medication Instructions Dosage Frequency Start Date End Date Duration Status Ciprodex 0.3-0.1 % Otic Twice a day 4 drops into affected ear Jul, 07 days Active Eliquis 5 mg Orally 2 times a day 1 tablet 12Jul, Active RESULTS Name Result Date Reference Range INR (IN HOUSE) 2016-08-04 INR 1.8 1.10 - 3.30 PREVIOUS INR 3.9 CURRENT COUMADIN DOSE 5 mg daily NEW COUMADIN DOSE Will stop Coumadin today and start him on Eliquist per José Miguel Lot # [id number] Exp date 10/27 PROCEDURES Procedure Date Ordered Related Diagnosis Body Site PROTHROMBIN TIME Aug 04, 2016 IMMUNIZATIONS No Known Immunizations
--- OUTSIDE RECORDS SUMMARY | 2017-12-31 19:32 | XMS REPORT ---
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 Problem Diabetes type 2, uncontrolled E11.65 Active Problem Abnormality of gait 781.2 Active Problem Need for prophylactic vaccination and inoculation, Influenza V04.81 Active Problem Hypertension 401.9 Active Problem Other and unspecified hyperlipidemia 272.4 Active Assessment Other and unspecified hyperlipidemia 272.4 Active 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 Active Assessment Diabetes type 2, uncontrolled E11.65 Active Problem Routine general medical examination at health care facility V70.0 Active Medications Medication Code System Code Instructions Start Date End Date Status Dosage GlipiZIDE [facility] [address]-87 10 MG Orally 2 times a day October 15, 2014 1 tablet Aspirin [facility] [address]-04 81 mg December 08, 2013 1 Tablet by Oral route 2 times per day Victoza [facility] [address]-98 18 MG/3ML Subcutaneous Once a day 1.8 Dapagliflozin Propanediol [facility] [address]-73 5 MG Orally Once a day Aug 05, 2015 Sep 04, 2015 1 tablet Enalapril Maleate [facility] [address]-00 20 MG Orally Once a day October 22, 2014 1 tablet Fish Oil [facility] [address]-90 500 mg December 08, 2013 2 Capsule by Oral route 1 time per day Potassium Gluconate [facility] 75328-[address]68 500 mg (83 mg) December 08, 2013 2 Tablet by Oral route 2 times per day Pravastatin Sodium [facility] 41372058279 20MG TAKE ONE TABLET BY MOUTH ONCE DAILY warfarin NDC 0 6 mg oral Once a day October 22, 2014 1 tablet metformin [facility] [address]-01 1,000 mg October 15, 2014 take 1 tablet (1,000 mg) by oral route 2 times per day with morning and evening meals Ocuvite [facility] [address]-61 748-18-6-150 qk-vpxg-yr-mg December 08, 2013 1 Capsule by Oral route 1 time per day Metformin HCl [facility] 65808204338 1000MG Orally Twice a day 1 tablet with a meal Pravachol [facility] [address]-85 20 MG Orally Once a day December 29, 2014 1 tablet Vitamin B 12 [facility] [address]87 100 MCG Orally not defined Procedures Procedure Coding System Code Date Office Visit, Est Pt., Level 3 CPT-4 72493 Aug 05, 2015 VENIPUNCT, ROUTINE* CPT-4 51788 Aug 05, 2015 LIPID PANEL CPT-4 88113 Aug 05, 2015 PROTHROMBIN TIME CPT-4 98391 Aug 05, 2015 GLYCATED HEMOGLOBIN TEST CPT-4 81431 Aug 05, 2015 Vital Signs Date/Time: Aug 05, 2015 Temperature 98.1 F Weight 246 lbs Height 72 in BMI 33.36 Index Blood Pressure Diastolic 70 mmHg Blood Pressure Systolic 144 mmHg Cardiac Monitoring Heart Rate 89 bpm Results No Known Results Summary Purpose eClinicalWorks Submission
--- OUTSIDE RECORDS SUMMARY | 2017-12-31 19:32 | XMS REPORT ---
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.01 Active Problem Encounter for long-term (current) use of other medications V58.69 Active Problem Routine general medical examination at health care facility V70.0 Active Problem Hypertension 401.9 Active Problem Other and unspecified hyperlipidemia 272.4 Active Problem jail current use of anticoagulant Z79.01 Active Problem Diabetes mellitus without mention of complication, type II or unspecified type, not stated as uncontrolled 250.00 Active Problem Personal history of venous thrombosis and embolism V12.51 Active Problem Abnormality of gait 781.2 Active Problem Need for prophylactic vaccination and inoculation, Influenza V04.81 Active Medications No Known Medications Procedures Procedure Coding System Code Date PROTHROMBIN TIME CPT-4 98634 Jul 07, 2015 Results No Known Results Summary Purpose [employer] Submission
--- OUTSIDE RECORDS SUMMARY | 2017-12-31 19:32 | XMS REPORT ---
Author Author ISABEL CRAVEN Organization [employer] Address Unknown Phone Unavailable Care Team Providers Care Pawn Shop Keeper Name Role Phone ISABEL CRAVEN CP Unavailable Allergies No Known Allergies Problems Problem Type Condition Code Onset Dates Condition Status Problem shelter current use of anticoagulant Z79.01 [...] Date End Date Status Dosage Warfarin Sodium [facility] [address]-93 5 mg Orally once daily January 21, 2016 1 tablet Results No Known Results Summary Purpose eClinicalWorks Submission
--- OUTSIDE RECORDS SUMMARY | 2017-12-31 19:32 | XMS REPORT ---
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 92266480 Problem Other hammer toe(s) (acquired), right foot M20.41 Active 813115766 Problem DM neuro manif type II E11.49 Active 17849325 Problem Essential hypertension I10 Active 73543664 Problem Diabetes type 2, uncontrolled E11.65 Active 314657281 Problem Urge incontinence of urine N39.41 Active 15411409 Problem 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
--- OUTSIDE RECORDS SUMMARY | 2017-12-31 19:33 | XMS REPORT ---
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 Active Problem Essential hypertension I10 Active Problem Other and unspecified hyperlipidemia 272.4 Active Problem Abnormality of gait 781.2 Active Problem Type II or unspecified type diabetes mellitus with neurological manifestations, 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 7.5mg T,T,S,S [id number] Summary Purpose [employer]ClinicalWorks Submission
--- OUTSIDE RECORDS SUMMARY | 2017-12-31 19:33 | XMS REPORT ---
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
--- OUTSIDE RECORDS SUMMARY | 2017-12-31 19:33 | XMS REPORT ---
Author Author JANETH PATIÑO [employer] Address Unknown Phone Unavailable Care Team Providers Care Mixing Tank Operator Name Role Phone JANETH PATIÑO CP Unavailable Allergies No Known Allergies Problems Problem Type Condition Code Onset Dates Condition Status Problem Routine general medical examination at health care facility V70.0 Active Problem Personal history of venous thrombosis and embolism V12.51 Active Problem Encounter for long-term (current) use of other medications V58.69 Active Assessment longterm current use of anticoagulant Z79.01 Active Problem Type II or unspecified type diabetes mellitus with neurological manifestations, 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
--- OUTSIDE RECORDS SUMMARY | 2017-12-31 19:33 | XMS REPORT ---
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 Z79.01 Apr, Active 232552347 Problem Abnormality of gait 781.2 Active 52900502 Problem Personal history of venous thrombosis and embolism V12.51 Active 469600576 Problem Essential hypertension I10 Active 21674282 Problem Diabetes type 2, uncontrolled E11.65 Active 105130282 Problem Hypertension 401.9 Active 66581756 Problem Other and unspecified hyperlipidemia 272.4 Active 93188302 Problem jail current use of anticoagulant Z79.01 Active 667609743 Problem Type II or unspecified type diabetes mellitus with neurological manifestations, 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
--- OUTSIDE RECORDS SUMMARY | 2017-12-31 19:33 | XMS REPORT ---
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 53993023 Problem Other hammer toe(s) (acquired), right foot M20.41 Active 079198454 Problem DM neuro manif type II E11.49 Active 58612701 Problem Essential hypertension I10 Active 59023749 Problem Diabetes type 2, uncontrolled E11.65 Active 115102312 Problem Urge incontinence of urine N39.41 Active 01178001 Problem 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 926304388 ALLERGIES No Known Allergies SOCIAL HISTORY Never Assessed PLAN OF CARE Activity Details Follow Up 4 Weeks Reason:CHM urinary frequency VITAL SIGNS Height 72 in 2016-11-14 Weight 247.2 lbs 2016-11-14 Temperature 98.5 degrees Fahrenheit 2016-11-14 Heart Rate 84 bpm 2016-11-14 Respiratory Rate 20 2016-11-14 BMI 33.52 kg/m2 2016-11-14 Blood pressure systolic 140 mmHg 2016-11-14 Blood pressure diastolic 70 mmHg 2016-11-14 MEDICATIONS Medication Instructions Dosage Frequency Start Date End Date Duration Status Eliquis 5 mg Orally 2 times a day 1 tablet 12h 0 Active Vitamin B 12 100 MCG Active Potassium Gluconate 500 mg (83 mg) orally daily 2 Tablet by Oral route 2 times per day 24h Nov, 0 Active metformin 1,000 mg by oral route 2 times a day take 1 tablet 12h 05 Oct, 2014 0 Active Fish Oil 500 mg Orally 2 times a day 2 Capsule by Oral route 1 time per day 12h Nov, Active Enalapril Maleate 20 mg Orally Once a day 1 tablet 24h Active Vasotec 20 MG orally daily 1 tablet 24h 0 Active Pravachol 40 mg Orally Once a day 1 tablet 24h 0 days Active Tamsulosin HCl 0.4 MG Orally Once a day 1 capsule 30 minutes after the same meal each day 24h Nov, Nov, 0 days Active Ocuvite 886-07-9-150 fz-gykj-lh-mg 1 Capsule by Oral route 1 time per day Nov, Active Aspirin 81 mg orally daily 1 Tablet by Oral route 2 times per day 24h Nov, 0 Active GlipiZIDE 10MG orally 2 times daily 2 tab am 1 tab pm 0 Active Victoza 18 MG/3ML Subcutaneous Once a day 1.8 24h Active RESULTS No Results PROCEDURES No Known [...] History permanent vena cave filter placed at [facility] by Surgical History TURP-Dr. Kirk 2009 Hospitalization History Just surgeries listed above
--- OUTSIDE RECORDS SUMMARY | 2017-12-31 19:33 | XMS REPORT ---
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 62365548 Problem Other hammer toe(s) (acquired), right foot M20.41 Active 214537891 Problem DM neuro manif type II E11.49 Active 44618523 Problem Essential hypertension I10 Active 57942652 Problem Diabetes type 2, uncontrolled E11.65 Active 348154536 Problem Urge incontinence of urine N39.41 Active 59552931 Problem 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 613373671 ALLERGIES No Known Allergies SOCIAL HISTORY Never Assessed PLAN OF CARE Activity Details Follow Up 3 Months Reason:CHM DM (2 weeks for ear pain if not improving) VITAL SIGNS Height 72 in 2017-01-15 Weight 241.6 lbs 2017-01-15 Temperature 98.6 degrees Fahrenheit 2017-01-15 Heart Rate 100 bpm 2017-01-15 Respiratory Rate 24 2017-01-15 BMI 32.76 kg/m2 2017-01-15 Blood pressure systolic 118 mmHg 2017-01-15 Blood pressure diastolic 68 mmHg 2017-01-15 MEDICATIONS Medication Instructions Dosage Frequency Start Date End Date Duration Status GlipiZIDE 10MG orally 2 times daily 2 tab am 1 tab pm 0 Active Aspirin 81 mg orally daily 1 Tablet by Oral route 2 times per day 24h Nov, 0 Active Potassium Gluconate 500 mg (83 mg) orally daily 2 Tablet by Oral route 2 times per day 24h Nov, 0 Active Enalapril Maleate 20 mg Orally Once a day 1 tablet 24h Active metformin 1,000 mg by oral route 2 times a day take 1 tablet 12h Oct, 0 Active Fish Oil 500 mg Orally 2 times a day 2 Capsule by Oral route 1 time per day 12h Nov, Active Victoza 18 MG/3ML Subcutaneous Once a day 1.8 24h Active Pravachol 40 mg Orally Once a day 1 tablet 24h 0 days Active Wnumgjeq-Qilhuklny-MT 3.5-46311-2 MG-U/ML Otic Three times a day 4 drops into both ears 8h Sep, 10 days Active Hydrocortisone-Acetic Acid 1-2 % Otic Three times a day 3 drops into affected ear 8h Jan, 10 day(s) Active Urecholine 25 MG Orally 4 times a day 1 tablet after meals and at bedtime 6h Active Eliquis 5 mg Orally 2 times a day 1 tablet 12h 0 Active RESULTS Name Result Date Reference Range A1C (IN HOUSE) 2017-01-15 A1C IN HOUSE 7.2 4.3 - 5.6 % Previous A1c 8.8 Lot [id number] Exp date 10/29 PROCEDURES Procedure Date Ordered Result Body Site GLYCATED HEMOGLOBIN TEST January 15, 2017 IMMUNIZATIONS No Known Immunizations MEDICAL (GENERAL) HISTORY [...] History permanent vena cave filter placed at [facility] by Surgical History TURP-Dr. Kirk 2009 Hospitalization History Just surgeries listed above
--- OUTSIDE RECORDS SUMMARY | 2017-12-31 19:33 | XMS REPORT ---
Author Author ISABEL CRAVEN Organization [employer] Address Unknown Phone Unavailable Care Team Providers Care Dock Coordinator Name Role Phone ISABEL CRAVEN CP Unavailable Allergies No Known Allergies Problems Problem Type Condition Code Onset Dates Condition Status Problem Routine general medical examination at health care facility V70.0 Active Assessment Encounter for long-term (current) use of other medications Z79.899 Active Problem Other and unspecified hyperlipidemia 272.4 [...] Coding System Code Date PROTHROMBIN TIME CPT-4 68797 Jun 23, 2015 Results No Known Results Summary Purpose [employer] Submission
--- OUTSIDE RECORDS SUMMARY | 2017-12-31 19:33 | XMS REPORT ---
Author Author JANETH PATIÑO [facility] eClinicalWorks Address Unknown Phone Unavailable Care Team Providers Care Archeologist Classical Name Role Phone JANETH PATIÑO Unavailable Allergies No Known Allergies Problems Problem Type Condition Code Onset Dates Condition Status Problem Encounter for long-term (current) use of other medications V58.69 Active Problem Diabetes mellitus without mention of complication, type II or unspecified type, not stated as uncontrolled 250.00 Active Problem Personal history of venous thrombosis and embolism V12.51 Active Problem Routine general medical examination at health care facility V70.0 Active 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
--- OUTSIDE RECORDS SUMMARY | 2017-12-31 19:33 | XMS REPORT ---
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 65721438 Problem Other hammer toe(s) (acquired), right foot M20.41 Active 704795748 Problem DM neuro manif type II E11.49 Active 83929197 Problem Essential hypertension I10 Active 01134122 Problem Diabetes type 2, uncontrolled E11.65 Active 208184893 Problem Urge incontinence of urine N39.41 Active 10073854 Problem 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
--- OUTSIDE RECORDS SUMMARY | 2017-12-31 19:33 | XMS REPORT ---
Author Author JANETH PATIÑO [employer] Address Unknown Phone Unavailable Care Team Providers Care Paginator Name Role Phone JANETH PATIÑO CP Unavailable Allergies No Known Allergies Problems Problem Type Condition Code Onset Dates Condition Status Problem Routine general medical examination at health care facility V70.0 Active Assessment skilled nursing current use of anticoagulant therapy V58.61 Active Problem Other and unspecified hyperlipidemia [...] Coding System Code Date PROTHROMBIN TIME CPT-4 75233 May 12, 2015 Results No Known Results Summary Purpose [employer] Submission
--- OUTSIDE RECORDS SUMMARY | 2017-12-31 19:33 | XMS REPORT ---
Author Author ISABEL CRAVEN Organization [employer] Address Unknown Phone Unavailable Care Team Providers Care Trim Setter Name Role Phone ISABEL CRAVEN CP Unavailable Allergies No Known Allergies Problems Problem Type Condition Code Onset Dates Condition Status Assessment medical terminologist current use of anticoagulant Z79.01 Active Problem Encounter for long-term (current) use of other medications V58.69 Active Problem Routine general medical examination at health care facility V70.0 Active Problem Hypertension 401.9 Active Problem Other and unspecified hyperlipidemia 272.4 Active Problem shelter current use of anticoagulant [...] Coding System Code Date PROTHROMBIN TIME CPT-4 67657 Jul 14, 2015 Results No Known Results Summary Purpose [employer] Submission
--- OUTSIDE RECORDS SUMMARY | 2017-12-31 19:33 | XMS REPORT ---
Author Author JOSÉ MIGUEL ERAZO Organization [employer] Address Unknown Phone Unavailable Care Team Providers Care Bushing And Broach Operator Name Role Phone JOSÉ MIGUEL ERAZO CP Unavailable Allergies No Known Allergies Problems Problem Type Condition Code Onset Dates Condition Status Problem Personal history of venous thrombosis and embolism V12.51 Active Assessment [facility] current use of anticoagulant Z79.01 Active Problem Diabetes type 2, uncontrolled E11.65 Active Problem [facility] current use of anticoagulant Z79.01 Active Problem Essential hypertension I10 Active Problem Other and unspecified hyperlipidemia 272.4 Active Problem Abnormality of gait 781.2 Active Problem Type II or unspecified type diabetes mellitus with neurological manifestations, 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
--- OUTSIDE RECORDS SUMMARY | 2017-12-31 19:34 | XMS REPORT ---
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 Unknown Non Drug Allergy Jun, Unknown SOCIAL HISTORY No smoking Hx information available PLAN OF CARE Activity Details Follow Up 6 Weeks Reason:end of July for CHM DM ( INR check Sunday) VITAL SIGNS Height 72 in 2016-06-27 Weight 247.1 lbs 2016-06-27 Temperature 98.1 degrees Fahrenheit 2016-06-27 Heart Rate 82 bpm 2016-06-27 Respiratory Rate 16 2016-06-27 BMI 33.51 kg/m2 2016-06-27 Blood pressure systolic 128 mmHg 2016-06-27 Blood pressure diastolic 72 mmHg 2016-06-27 MEDICATIONS Medication Instructions Dosage Frequency Start Date End Date Duration Status Vitamin B 12 100 MCG Active Warfarin Sodium 5 mg Orally once daily 1 tablet 24h Active Victoza 18 MG/3ML Subcutaneous Once a day 1.8 24h Active Enalapril Maleate 20 mg Orally Once a day 1 tablet 24h Active Potassium Gluconate 500 mg (83 mg) 2 Tablet by Oral route 2 times per day Nov, Active Fish Oil 500 mg Orally 2 times a day 2 Capsule by Oral route 1 time per day 12h 28 Nov, 2013 Active metformin 1,000 mg by oral route 2 times a day take 1 tablet 12h Oct, Active Warfarin Sodium 1 MG Orally once daily 1 tablet 24h Jan, Active Warfarin Sodium 5 MG TAKE ONE (1) TABLET BY MOUTH DAILY... Active Aspirin 81 mg 1 Tablet by Oral route 2 times per day Nov, Active GlipiZIDE 10MG 2 tab am 1 tab pm 2 times a day Orally Active warfarin 6 mg oral Once a day 1 tablet 24h Oct, Active Pravachol 40 mg Orally Once a day 1 tablet 24h Active RESULTS No Results PROCEDURES Procedure Date Ordered Related Diagnosis Body Site Office Visit, Est Pt., Level 4 Jun 27, 2016 IMMUNIZATIONS No Known Immunizations
--- OUTSIDE RECORDS SUMMARY | 2017-12-31 19:34 | XMS REPORT | Continuity of Care Document ---
Author Author [facility] Address Unknown Phone Unavailable Allergies Active Description Code Type Severity Reaction Onset Reported/Identified Relationship to Patient Clinical Status Yes No Known Drug Allergies [id number] Drug Allergy Unknown N/A 08/08/2010 Medications There is no data. Problems Date Dx Coded Attending Type Code Diagnosis Diagnosed By 12/08/2013 YANDEL MCGEE DO 250.00 DIABETES MELLITUS WITHOUT MENTION OF COMPLICATION TYPE II OR UNSPECIFIED TYPE NOT STATED UNCONTROLLED 12/08/2013 YANDEL MCGEE DO V12.51 PERSONAL HISTORY OF VENOUS THROMBOSIS AND EMBOLISM 12/08/2013 YANDEL MCGEE DO V58.69 LONG-TERM (CURRENT) USE OF OTHER MEDICATIONS 12/08/2013 YANDEL MCGEE DO V70.0 EXAM - ROUTINE H&P 12/08/2013 YANDEL MCGEE DO 250.00 DIABETES MELLITUS WITHOUT MENTION OF COMPLICATION TYPE II OR UNSPECIFIED TYPE NOT STATED UNCONTROLLED 12/08/2013 YANDEL MCGEE DO V12.51 PERSONAL HISTORY OF VENOUS THROMBOSIS AND EMBOLISM 12/08/2013 YANDEL MCGEE DO V58.69 LONG-TERM (CURRENT) USE OF OTHER MEDICATIONS 12/08/2013 YANDEL MCGEE DO V70.0 EXAM - ROUTINE H&P 12/08/2013 YANDEL MCGEE DO 250.00 DIABETES MELLITUS WITHOUT MENTION OF COMPLICATION TYPE II OR UNSPECIFIED TYPE NOT STATED UNCONTROLLED 12/08/2013 YANDEL MCGEE DO V12.51 PERSONAL HISTORY OF VENOUS THROMBOSIS AND EMBOLISM 12/08/2013 YANDEL MCGEE DO V58.69 LONG-TERM (CURRENT) USE OF OTHER MEDICATIONS 12/08/2013 YANDEL MCGEE DO V70.0 EXAM - ROUTINE H&P 12/08/2013 JANETH PATIÑO APRN 250.00 DIABETES MELLITUS WITHOUT MENTION OF COMPLICATION TYPE II OR UNSPECIFIED TYPE NOT STATED UNCONTROLLED 12/08/2013 JANETH PATIÑO APRN V12.51 PERSONAL HISTORY OF VENOUS THROMBOSIS AND EMBOLISM 12/08/2013 JANETH PATIÑO APRN V58.69 LONG-TERM (CURRENT) USE OF OTHER MEDICATIONS 12/08/2013 JANETH PATIÑO APRN V70.0 EXAM - ROUTINE H&P 12/08/2013 MCGEE DO YANDEL K 250.00 DIABETES MELLITUS WITHOUT MENTION OF COMPLICATION TYPE II OR UNSPECIFIED TYPE NOT STATED UNCONTROLLED 12/08/2013 EVERARDO PRABHAKAR YANDEL K V12.51 PERSONAL HISTORY OF VENOUS THROMBOSIS AND EMBOLISM 12/08/2013 EVERARDO PRABHAKAR YANDEL K V58.69 LONG-TERM (CURRENT) USE OF OTHER MEDICATIONS 12/08/2013 MCGEE DO, YANDEL K V70.0 EXAM - ROUTINE H&P 12/08/2013 MCGEE DO YANDEL K 250.00 DIABETES MELLITUS WITHOUT MENTION OF COMPLICATION TYPE II OR UNSPECIFIED TYPE NOT STATED UNCONTROLLED 12/08/2013 EVERARDO PRABHAKAR YANDEL K V12.51 PERSONAL HISTORY OF VENOUS THROMBOSIS AND EMBOLISM 12/08/2013 EVERARDO PRABHAKAR YANDEL K V58.69 LONG-TERM (CURRENT) USE OF OTHER MEDICATIONS 12/08/2013 MCGEE DO YANDEL K V70.0 EXAM - ROUTINE H&P 12/08/2013 MCGEE DO, YANDEL K 250.00 DIABETES MELLITUS WITHOUT MENTION OF COMPLICATION TYPE II OR UNSPECIFIED TYPE NOT STATED UNCONTROLLED 12/08/2013 EVERARDO PRBAHAKAR YANDEL K V12.51 PERSONAL HISTORY OF VENOUS THROMBOSIS AND EMBOLISM 12/08/2013 EVERARDO PRABHAKAR YANDEL K V58.69 LONG-TERM (CURRENT) USE OF OTHER MEDICATIONS 12/08/2013 MCGEE DO YANDEL K V70.0 EXAM - ROUTINE H&P 12/08/2013 MCGEE DO YANDEL K 250.00 DIABETES MELLITUS WITHOUT MENTION OF COMPLICATION TYPE II OR UNSPECIFIED TYPE NOT STATED UNCONTROLLED 12/08/2013 MCGEE DO YANDEL K V12.51 PERSONAL HISTORY OF VENOUS THROMBOSIS AND EMBOLISM 12/08/2013 EVERARDO PRABHAKAR YANDEL K V58.69 LONG-TERM (CURRENT) USE OF OTHER MEDICATIONS 12/08/2013 MCGEE DO YANDEL K V70.0 EXAM - ROUTINE H&P 12/08/2013 MCGEE DO YANDEL K 250.00 DIABETES MELLITUS WITHOUT MENTION OF COMPLICATION TYPE II OR UNSPECIFIED TYPE NOT STATED UNCONTROLLED 12/08/2013 EVERARDO PRABHAKAR YANDEL K V12.51 PERSONAL HISTORY OF VENOUS THROMBOSIS AND EMBOLISM 12/08/2013 MCGEE DO, YANDEL K V58.69 LONG-TERM (CURRENT) USE OF OTHER MEDICATIONS 12/08/2013 MCGEE DO, YANDEL K V70.0 EXAM - ROUTINE H&P 03/09/2014 MCGEE DO, YANDEL K V72.62 LABORATORY EXAMINATION ORDERED PART OF A ROUTINE GENERAL MEDICAL EXAMINATION 03/09/2014 MCGEE DO, YANDEL K V72.62 LABORATORY EXAMINATION ORDERED PART OF A ROUTINE GENERAL MEDICAL EXAMINATION 03/09/2014 JUANITO PATIÑO APRNE E V72.62 LABORATORY EXAMINATION ORDERED PART OF A ROUTINE GENERAL MEDICAL EXAMINATION 03/09/2014 MCGEE DO, YANDEL K V72.62 LABORATORY EXAMINATION ORDERED PART OF A ROUTINE GENERAL MEDICAL EXAMINATION 03/09/2014 MCGEE DO, YANDEL K V72.62 LABORATORY EXAMINATION ORDERED PART OF A ROUTINE GENERAL MEDICAL EXAMINATION 03/09/2014 MCGEE DO, YANDEL K V72.62 LABORATORY EXAMINATION ORDERED PART OF A ROUTINE GENERAL MEDICAL EXAMINATION 03/09/2014 MCGEE DO, YANDEL K V72.62 LABORATORY EXAMINATION ORDERED PART OF A ROUTINE GENERAL MEDICAL EXAMINATION 03/09/2014 MCGEE DO, YANDEL K V72.62 LABORATORY EXAMINATION ORDERED PART OF A ROUTINE GENERAL MEDICAL EXAMINATION 06/08/2014 MCGEE DO, YANDEL K 272.4 OTHER AND UNSPECIFIED HYPERLIPIDEMIA 06/08/2014 MCGEE DO, YANDEL K 781.2 ABNORMALITY OF GAIT 06/08/2014 MCGEE DO, YANDEL K V04.81 FLU SHOT 06/08/2014 JUANITO PATIÑO APRNE E 272.4 OTHER AND UNSPECIFIED HYPERLIPIDEMIA 06/08/2014 JUANITO PATIÑO APRNE E 781.2 ABNORMALITY OF GAIT 06/08/2014 RANI PATIÑO APRNSIE E V04.81 FLU SHOT 06/08/2014 MCGEE DO, YANDEL K 272.4 OTHER AND UNSPECIFIED HYPERLIPIDEMIA 06/08/2014 MCGEE DO, YANDEL K 781.2 ABNORMALITY OF GAIT 06/08/2014 MCGEE DO, YANDEL K V04.81 FLU SHOT 06/08/2014 MCGEE DO, YANDEL K 272.4 OTHER AND UNSPECIFIED HYPERLIPIDEMIA 06/08/2014 MCGEE DO, YANDEL K 781.2 ABNORMALITY OF GAIT 06/08/2014 MCGEE DO, YANDEL K V04.81 FLU SHOT 06/08/2014 MCGEE DO, YANDEL K 272.4 OTHER AND UNSPECIFIED HYPERLIPIDEMIA 06/08/2014 MCGEE DO, YANDEL K 781.2 ABNORMALITY OF GAIT 06/08/2014 MCGEE DO, YANDEL K V04.81 FLU SHOT 06/08/2014 MCGEE DO, YANDEL K 272.4 OTHER AND UNSPECIFIED HYPERLIPIDEMIA 06/08/2014 MCGEE DO, YANDEL K 781.2 ABNORMALITY OF GAIT 06/08/2014 MCGEE DO, YANDEL K V04.81 FLU SHOT 06/08/2014 MCGEE DO, YANDEL K 272.4 OTHER AND UNSPECIFIED HYPERLIPIDEMIA 06/08/2014 MCGEE DO, YANDEL K 781.2 ABNORMALITY OF GAIT 06/08/2014 MCGEE DO, YANDEL K V04.81 FLU SHOT 02/11/2016 Ot 453.41 ACUTE VENOUS EMBOLISM THROMBOSIS DEEP 02/11/2016 Ot 453.40 ACUTE VENOUS EMBOLISM THROMBOSIS UNSP 06/13/2016 Ot 453.40 ACUTE VENOUS EMBOLISM THROMBOSIS UNSP 08/13/2016 Ot 453.40 ACUTE VENOUS EMBOLISM THROMBOSIS UNSP 10/11/2016 Ot 453.41 ACUTE VENOUS EMBOLISM THROMBOSIS DEEP 03/13/2017 Ot 453.40 ACUTE VENOUS EMBOLISM THROMBOSIS [facility] Procedures Code Description [place] [address] INR (IN HOUSE) 12/08/2013 75247 UA LONG DIP 12/08/2013 68541 A1C (IN-HOUSE) 12/08/2013 09418 ROUTINE VENIPUNCTURE 03/09/2014 97881 INR (IN HOUSE) 03/09/2014 53490 A1C (IN-HOUSE) 03/09/2014 61189 CMP 03/11/2014 95832 LIPID PANEL 03/11/2014 17429 TSH 03/11/2014 76392 CBC 03/11/2014 23593 A1C (IN-HOUSE) 06/08/2014 G0008 FLU ADMINISTRATION ( MEDICARE ONLY) 06/08/2014 PHYSICAL Physical Therapy, 06/08/2014 40804 ROUTINE VENIPUNCTURE 07/21/2014 74786 LIPID PANEL 07/21/2014 81202 ROUTINE VENIPUNCTURE 09/23/2014 02647 A1C (IN-HOUSE) 09/23/2014 63585 INR (IN HOUSE) 09/23/2014 66297 MICRO ALBUMIN-IN HOUSE 09/23/2014 21426 LIPID PANEL 09/23/2014 84004 INR (IN HOUSE) 10/29/2014 48460 INR (IN HOUSE) 11/05/2014 65765 INR (IN HOUSE) 11/12/2014 43719 INR (IN HOUSE) 11/18/2014 26018 INR (IN HOUSE) 11/26/2014 Results There is no data. Encounters ACCT No. Visit Date/Time Discharge Status Pt. Type Provider Facility Loc./Unit Complaint [id number] 11/26/2014 11:55:00 11/26/2014 23:59:59 CLS Outpatient EVERARDO PRABHAKAR YANDEL K [id number] 11/18/2014 11:37:00 11/18/2014 23:59:59 CLS Outpatient MCGEE DOYANDEL [id number] 11/12/2014 10:14:00 11/12/2014 23:59:59 CLS Outpatient MCGEE DOYANDEL [id number] 11/05/2014 10:43:00 11/05/2014 23:59:59 CLS Outpatient EVERARDO PRABHAKARYANDEL [id number] 09/23/2014 09:52:00 09/23/2014 23:59:59 CLS Outpatient EVERARDO PRABHAKARYANDEL [id number] 07/21/2014 08:35:00 07/21/2014 23:59:59 CLS Outpatient JANETH PATIÑO APRN [id number] 06/08/2014 09:44:00 06/08/2014 23:59:59 CLS Outpatient MCGEE DOYANDEL [id number] 03/11/2014 08:16:00 03/11/2014 23:59:59 CLS Outpatient MCGEE DOYANDEL [id number] 12/08/2013 13:09:00 12/08/2013 23:59:59 [place] [id number] 08/21/2017 10:20:00 08/21/2017 23:59:59 CLS Outpatient DEGRAFFENRJOSÉ MIGUEL FELDMAN [facility] [id number] 03/05/2012 08:11:00 Document Registration [id number] 04/26/2011 09:50:00 Document Registration
--- OUTSIDE RECORDS SUMMARY | 2017-12-31 19:34 | XMS REPORT ---
Author Author JANETH PATIÑO e[employer] Address Unknown Phone Unavailable Care Team Providers Care Clay Dry Press Operator Name Role Phone JANETH PATIÑO Unavailable Allergies No Known Allergies Problems Problem Type Condition Code Onset Dates Condition Status Assessment FDC current use of anticoagulant Z79.01 Active Problem FDC current use of anticoagulant Z79.01 Active Problem [...] Coding System Code Date PROTHROMBIN TIME CPT-4 60009 March 03, 2016 Results No Known Results Summary Purpose eClinicalWorks Submission
--- OUTSIDE RECORDS SUMMARY | 2017-12-31 19:34 | XMS REPORT ---
Author Author JANETH PATIÑO [employer] Address Unknown Phone Unavailable Care Team Providers Care Office Specialist Name Role Phone JANETH PATIÑO Unavailable Allergies No Known Allergies Problems Problem Type Condition Code Onset Dates Condition Status Assessment senior care current use of anticoagulant Z79.01 Active Problem senior care current use of anticoagulant Z79.01 Active Problem [...] Coding System Code Date PROTHROMBIN TIME CPT-4 62497 March 10, 2016 Results No Known Results Summary Purpose eClinicalWorks Submission
--- OUTSIDE RECORDS SUMMARY | 2017-12-31 19:34 | XMS REPORT ---
Author JANETH Williamson e[employer] Address Unknown Phone Unavailable Care Team Providers Care Stock Chaser Name Role Phone JANETH PATIÑO CP Unavailable Allergies, Adverse Reactions, Alerts Substance Reaction Event Type N.K.D.A. Info Not Available Non Drug Allergy Problems Problem Type Condition Code Onset Dates Condition Status Assessment Influenza vaccine administered V04.81 Active Problem Routine general medical examination at health care facility V70.0 Active Assessment Diabetes mellitus without mention of complication, type II or unspecified type, not stated as uncontrolled 250.00 Active Assessment Nail fungus 110.1 Active Assessment Onycholysis of toenail 703.8 Active Problem Other and unspecified hyperlipidemia 272.4 [...] Instructions Start Date End Date Status Dosage Vitamin B [address] [facility] [address] 100 MCG Orally not defined Potassium Gluconate [facility] [address] 500 mg (83 mg) December 08, 2013 2 Tablet by Oral route 2 times per day Enalapril Maleate [facility] [address]-87 20 MG Orally Once a day October 22, 2014 1 tablet GlipiZIDE [facility] [address]-38 10 MG Orally 2 times a day October 15, 2014 1 tablet metformin [facility] [address]-07 1,000 mg October 15, 2014 take 1 tablet (1,000 mg) by oral route 2 times per day with morning and evening meals Aspirin [facility] [address]-42 81 mg December 08, 2013 1 Tablet by Oral route 2 times per day Ocuvite [facility] [address]-17 878-08-9-150 tv-gxmr-kd-mg December 08, 2013 1 Capsule by Oral route 1 time per day warfarin NDC 0 6 mg oral Once a day October 22, 2014 1 tablet Pravachol [facility] [address]-28 20 MG Orally Once a day December 29, 2014 1 tablet Metformin HCl [facility] 19038294307 1000MG Orally Twice a day 1 tablet with a meal Victoza [facility] [address]-40 18 MG/3ML Subcutaneous Once a day 1.8 Fish Oil [facility] [address]-54 500 mg December 08, 2013 2 Capsule by Oral route 1 time per day Procedures Procedure Coding System Code Date ADMN FLU VAC NO FEE SCHED SAME DAY CPT-4 G0008 May 03, 2015 Office Visit, Est Pt., Level 3 CPT-4 32336 May 03, 2015 GLYCATED HEMOGLOBIN TEST CPT-4 90062 May 03, 2015 SINGLE IMMUNIZATION ADMIN CPT-4 51368 May 03, 2015 FLU VAC NO PRSV 4 LOUISE 3 YRS+ CPT-4 48755 May 03, 2015 Vital Signs Date/Time: May 03, 2015 Temperature 97.8 F Weight 236.2 lbs Height 72 in BMI 32.03 Index Blood Pressure Diastolic 78 mmHg Blood Pressure Systolic 130 mmHg Cardiac Monitoring Heart Rate 84 bpm Results Name Result Date Reference Range Unit Abnormality Flag A1C (IN HOUSE) Immunizations Vaccine Administration Date FLUARIX QUAD (3 & UP)-GSK-2014May 03, 2015 Summary Purpose eClinicalWorks Submission
--- OUTSIDE RECORDS SUMMARY | 2017-12-31 19:34 | XMS REPORT ---
Author Author JANETH PATIÑO [facility] eClinicalWorks Address Unknown Phone Unavailable Care Team Providers Care Health Care Law Specialist Name Role Phone JANETH PATIÑO Unavailable [...] Start Date End Date Status Dosage GlipiZIDE [facility] [address]-92 10 MG Orally 2 times a day October 15, 2014 take 1 tablet Pravachol [facility] [address]-86 20 MG Orally Once a day December 29, 2014 1 tablet Results No Known Results Summary Purpose eClinicalWorks Submission
[2017-12-31] MEDS ORDERED: 1/2 NS W/KCL 20 MEQ/L 1,000 ML IV SCH (19:45)
[2017-12-31] MEDS ORDERED: ONDANSETRON 4 MG/2 ML (SDV) Z0FRAN IV PRN (19:45)
[2017-12-31] MEDS: APIXABAN 5 MG (ELIQUIS) TABLET PO SCH (21:15)
[2017-12-31] MEDS: HYDROcodone/APAP 5 MG/325 MG (LORTAB) TAB PO PRN (21:15)
[2017-12-31] MEDS: inSUlin ASPART (NovoLOG) 1 UNIT/0.01 ML (CHARGE PER UNIT) SC SCH (21:19)
[2017-12-31] MEDS: NS IV 1000 ML 1,000 ML IV SCH (22:21)
[2018-01-01] VITALS: BP 145/67
[2018-01-01] MEDS: HYDROcodone/APAP 5 MG/325 MG (LORTAB) TAB PO PRN ×5 (02:15→21:42)
[2018-01-01 04:50] LABS: BASOPHILS % (AUTO) 0 % (0-10); EOSINOPHILS # (AUTO) 0.2 10^3/uL (0.0-0.3); EOSINOPHILS % (AUTO) 2 % (0-10); HEMATOCRIT 36 % (40-54); HEMOGLOBIN 12.5 G/DL (13.3-17.7); LYMPHOCYTES # (AUTO) 1.7 X 10^3 (1.0-4.0); LYMPHOCYTES % (AUTO) 13 % (12-44); MEAN CORPUSCULAR HEMOGLOBIN 29 PG (25-34); MEAN CORPUSCULAR HGB CONC 35 G/DL (32-36); MEAN CORPUSCULAR VOLUME 84 FL (80-99); MEAN PLATELET VOLUME 11.5 FL (7.4-10.4); MONOCYTES # (AUTO) 1.4 X 10^3 (0.0-1.0); MONOCYTES % (AUTO) 11 % (0-12); NEUTROPHILS # (AUTO) 9.5 X 10^3 (1.8-7.8); NEUTROPHILS % (AUTO) 74 % (42-75); PLATELET COUNT 206 10^3/uL (130-400); RED BLOOD COUNT 4.28 10^6/uL (4.35-5.85); RED CELL DISTRIBUTION WIDTH 13.4 % (10.0-14.5); WHITE BLOOD COUNT 12.9 10^3/uL (4.3-11.0)
[2018-01-01 05:00] VITALS: BP 144/67
[2018-01-01 05:06] LABS: CALCIUM 8.6 MG/DL (8.5-10.1); CREATININE SERUM 1.33 MG/DL (0.60-1.30); POTASSIUM 4.5 MMOL/L (3.6-5.0)
[2018-01-01] MEDS: ACETAMINOPHEN 500 MG TAB (TYLENOL) PO PRN ×3 (05:15→17:56)
[2018-01-01] MEDS: NS IV 1000 ML 1,000 ML IV SCH ×3 (06:08→21:42)
[2018-01-01] MEDS: inSUlin ASPART (NovoLOG) 1 UNIT/0.01 ML (CHARGE PER UNIT) SC SCH ×4 (06:09→21:24)
[2018-01-01 08:00] VITALS: BP 140/74
[2018-01-01] MEDS ORDERED: PRAV40TA2 PO (08:19)
[2018-01-01] MEDS ORDERED: APIX5TAB PO (08:19)
[2018-01-01] MEDS ORDERED: ENAL20TA PO (08:19)
[2018-01-01] MEDS: APIXABAN 5 MG (ELIQUIS) TABLET PO SCH ×2 (08:49→21:21)
[2018-01-01] MEDS: cefTRIAXone 1 GM/NS 50 ML IVPB IV SCH ×2 (08:50)
[2018-01-01] MEDS: fentaNYL INJECTION 100 MCG/2 ML AMP IV PRN (08:50)
[2018-01-01] MEDS ORDERED: ENALAPRIL 10 MG (VASOTEC) TAB PO SCH (09:00)
--- OUTSIDE RECORDS SUMMARY | 2018-01-01 09:39 | XMS REPORT | Continuity of Care Document ---
Author Author [facility] Address Unknown Phone Unavailable Allergies Active Description Code Type Severity Reaction Onset Reported/Identified Relationship to Patient Clinical Status Yes No Known Drug Allergies [id number] Drug Allergy Unknown N/A 08/08/2010 Medications There [...] ROUTINE GENERAL MEDICAL EXAMINATION 06/08/2014 MCGEE DO, YANEDL K 272.4 OTHER AND UNSPECIFIED HYPERLIPIDEMIA 06/08/2014 [...] 03/13/2017 Ot 453.40 ACUTE VENOUS EMBOLISM THROMBOSIS [facility] Procedures Code [place] [address] INR (IN HOUSE) 12/08/2013 28336 UA LONG DIP 12/08/2013 55121 A1C (IN-HOUSE) 12/08/2013 05501 ROUTINE VENIPUNCTURE 03/09/2014 84407 INR (IN HOUSE) 03/09/2014 86159 A1C (IN-HOUSE) 03/09/2014 39002 CMP 03/11/2014 55522 LIPID PANEL 03/11/2014 75987 TSH 03/11/2014 46724 CBC 03/11/2014 02511 A1C (IN-HOUSE) 06/08/2014 G0008 FLU ADMINISTRATION ( MEDICARE ONLY) 06/08/2014 PHYSICAL Physical Therapy, 06/08/2014 98245 ROUTINE VENIPUNCTURE 07/21/2014 01456 LIPID PANEL 07/21/2014 10680 ROUTINE VENIPUNCTURE 09/23/2014 19318 A1C (IN-HOUSE) 09/23/2014 90669 INR (IN HOUSE) 09/23/2014 43910 MICRO ALBUMIN-IN HOUSE 09/23/2014 49773 LIPID PANEL 09/23/2014 57334 INR (IN HOUSE) 10/29/2014 50434 INR (IN HOUSE) 11/05/2014 18459 INR (IN HOUSE) 11/12/2014 21942 INR (IN HOUSE) 11/18/2014 30268 INR (IN HOUSE) 11/26/2014 Results There is no data. Encounters ACCT No. Visit Date/Time Discharge Status Pt. Type Provider Facility Loc./Unit Complaint [id number] 11/26/2014 11:55:00 11/26/2014 23:59:59 CLS Outpatient EVERARDO PRABHAKAR YANDEL K [id number] 11/18/2014 11:37:00 11/18/2014 23:59:59 CLS Outpatient MCGEE DOYANDEL [id number] 11/12/2014 10:14:00 11/12/2014 23:59:59 CLS Outpatient MCGEE DOYANDEL [id number] 11/05/2014 10:43:00 11/05/2014 23:59:59 CLS Outpatient EVERARDO PRABHAKARYANDEL [id number] 09/23/2014 09:52:00 09/23/2014 23:59:59 CLS Outpatient EVERARDO PRABHAKARYANDEL [id number] 07/21/2014 08:35:00 07/21/2014 23:59:59 CLS Outpatient JANETH PATIÑO APRN [id number] 06/08/2014 09:44:00 06/08/2014 23:59:59 CLS Outpatient MCGEE DOYANDEL [id number] 03/11/2014 08:16:00 03/11/2014 23:59:59 CLS Outpatient MCGEE DOYANDEL [id number] 12/08/2013 13:09:00 12/08/2013 23:59:59 [place] [id number] 08/21/2017 10:20:00 08/21/2017 23:59:59 CLS Outpatient DEGRAFFENRJOSÉ MIGUEL FELDMAN [facility] [id number] 03/05/2012 08:11:00 Document Registration [id number] 04/26/2011 09:50:00 Document Registration
[2018-01-01] MEDS ORDERED: METF10002 PO (09:42)
[2018-01-01] MEDS ORDERED: LIRA0.6P3 SC (09:42)
[2018-01-01] MEDS ORDERED: GLIP10TA13 PO ×2 (09:42)
[2018-01-01] MEDS ORDERED: ASPI-983 PO (09:42)
--- NOTE | 2018-01-01 10:57 | History & Physicial (CHS) ---
HPI History of Present Illness: 77 yo male came to ER after fall at home. He states he went to the bathroom and stood up to leave, his legs gave out and he fell to the floor and was unable to get up, laid there for at least an hour. He has an emergency alert button, but couldn't get to it. He denies dizziness, chest pain, shortness of breath. His legs have been getting progressively weaker the last 3 days with no other symptoms. He normally uses a cane for walking and has fallen in his yard at times on uneven ground. He denies dysuria, fever, vomiting (until in the ER). Source: patient Date seen by provider: January 01, 2018 Time Seen by Provider: 10:12 Attending Physician Letty Garcia MD PCP [facility] Consult Date of Admission December 31, 2017 at 6:50 pm Home Medications Home Medications Reviewed patient Home Medication Reconciliation performed by pharmacy medication reconciliations general service technician and/or nursing. Patients Allergies have been reviewed. Allergies Coded Allergies: No Known Drug Allergies (Unverified , 08/08/10) LOF-Ymssqa-Trqjdi Hx Patient Social History Alcohol Use: Denies Use Recreational Drug Use: No Smoking Status: Former Smoker Type Used: Cigarettes Recent Foreign Travel: No Contact w/other who traveled: No Recent Hopitalizations: No Recent Infectious Disease Expo: No Physical Abuse Screen: No Sexual Abuse: No Immunizations Up To Date Date of Pneumonia Vaccine: May 04, 2017 Date of Influenza Vaccine: May 13, 2011 Past Medical History PMHx: DMII HTN HLD Bilateral LE DVT PSurgHx: IVC filter Cholecystectomy Left knee arthroscopy TURP Family Medical History Significant Family History: Heart Disease Family History: Coronary thrombosis 19 FATHER FH: ovarian cancer 19 MOTHER Myocardial infarction 19 FATHER Review of Systems ([facility]) Constitutional: No fever; weakness EENTM: no symptoms reported Respiratory: No cough, No short of breath Cardiovascular: No chest pain Gastrointestinal: No constipation, No diarrhea, No nausea, No vomiting Genitourinary: No dysuria Musculoskeletal: muscle weakness Skin: no symptoms reported Psychiatric/Neurological: No Symptoms Reported Reviewed Test Results Reviewed Test Results Lab Laboratory Tests Test 12/31/17 16:30 12/31/17 18:00 12/31/17 21:05 01/01/18 03:45 Range/Units White Blood Count 18.3 H 12.9 H 4.3-11.0 10^3/uL Red Blood Count 4.71 4.28 L 4.35-5.85 10^6/uL Hemoglobin 13.8 12.5 L 13.3-17.7 G/DL Hematocrit 39 L 36 L 40-54 % Mean Corpuscular Volume 83 84 80-99 FL Mean Corpuscular Hemoglobin 29 29 25-34 PG Mean Corpuscular Hemoglobin Concent 35 35 32-36 G/DL Red Cell Distribution Width 13.1 13.4 10.0-14.5 % Platelet Count 190 206 130-400 10^3/uL Mean Platelet Volume 11.4 H 11.5 H 7.4-10.4 FL Neutrophils (%) (Auto) 86 H 74 42-75 % Lymphocytes (%) (Auto) 7 L 13 12-44 % Monocytes (%) (Auto) 7 11 0-12 % Eosinophils (%) (Auto) 0 2 0-10 % Basophils (%) (Auto) 0 0 0-10 % Neutrophils # (Auto) 15.7 H 9.5 H 1.8-7.8 X 10^3 Lymphocytes # (Auto) 1.2 1.7 1.0-4.0 X 10^3 Monocytes # (Auto) 1.3 H 1.4 H 0.0-1.0 X 10^3 Eosinophils # (Auto) 0.1 0.2 0.0-0.3 10^3/uL Basophils # (Auto) 0.1 0.0 0.0-0.1 10^3/uL Neutrophils % (Manual) 85 % Lymphocytes % (Manual) 7 % Monocytes % (Manual) 6 % Eosinophils % (Manual) 0 % Basophils % (Manual) 0 % Band Neutrophils 2 % Blood Morphology Comment NORMAL Sodium Level 140 140 135-145 MMOL/L Potassium Level 4.9 4.5 3.6-5.0 MMOL/L Chloride Level 111 H 113 H 98-107 MMOL/L Carbon Dioxide Level 18 L 17 L 21-32 MMOL/L Anion Gap 11 10 5-14 MMOL/L Blood Urea Nitrogen 28 H 26 H 7-18 MG/DL Creatinine 1.65 H 1.33 H 0.60-1.30 MG/DL Estimat Glomerular Filtration Rate 41 52 BUN/Creatinine Ratio 17 20 Glucose Level 200 H 154 H 70-105 MG/DL Calcium Level 9.4 8.6 8.5-10.1 MG/DL Magnesium Level 2.1 1.8-2.4 MG/DL Total Bilirubin 0.4 0.1-1.0 MG/DL Aspartate Amino Transf (AST/SGOT) 16 5-34 U/L Alanine Aminotransferase (ALT/SGPT) 14 0-55 U/L Alkaline Phosphatase 52 40-136 U/L Total Creatine Kinase 121 30-200 U/L Troponin I < 0.30 <0.30 NG/ML B-Type Natriuretic Peptide 14.2 <100.0 PG/ML Total Protein 7.2 6.4-8.2 GM/DL Albumin 4.1 3.2-4.5 GM/DL Urine Color YELLOW Urine Clarity SLIGHTLY CLOUDY Urine pH 5 5-9 Urine Specific Hamilton 1.025 H 1.016-1.022 Urine Protein 3+ H NEGATIVE Urine Glucose (UA) 3+ H NEGATIVE Urine Ketones 1+ H NEGATIVE Urine Nitrite NEGATIVE NEGATIVE Urine Bilirubin NEGATIVE NEGATIVE Urine Urobilinogen NORMAL NORMAL MG/DL Urine Leukocyte Esterase 3+ H NEGATIVE Urine RBC (Auto) 2+ H NEGATIVE Urine RBC 0-2 /HPF Urine WBC 50-100 H /HPF Urine Squamous Epithelial Cells NONE /HPF Urine Crystals NONE /LPF Urine Amorphous Sediment MOD LILIA URATES H /LPF Urine Bacteria LARGE H /HPF Urine Casts NONE /LPF Urine Mucus NEGATIVE /LPF Urine Culture Indicated YES Glucometer 240 H 70-110 MG/DL Radiology CXR with stable elevated right hemidiaphragm Knee x-rays with tricompartmental osteoarthritis, no acute changes Physical Exam-([facility]) Physical Exam Vital Signs VS - Last 72 Hours, by Label 12/31/17 12/31/17 12/31/17 01/01/18 15:43 19:13 19:20 00:00 Temp 97.5 96.8 97.1 Pulse 95 94 90 Resp 18 18 16 B/P (MAP) 190/85 (120) 174/94 145/67 (93) Pulse Ox 95 96 O2 Delivery Room Air Room Air Room Air Room Air 01/01/18 01/01/18 05:00 08:00 Temp 98.2 97.0 Pulse 89 86 Resp 18 18 B/P (MAP) 144/67 (92) 140/74 (96) Pulse Ox 95 97 O2 Delivery Room Air Room Air Capillary Refill : Less Than 3 Seconds General Appearance: WD/WN, no apparent distress Respiratory: lungs clear, normal breath sounds Cardiovascular: regular rate, rhythm, no murmur Gastrointestinal: normal bowel sounds, non tender, soft Extremities: no pedal edema Neurologic/Psychiatric: alert, normal mood/affect Skin: normal color Assessment/Plan Assessment/Plan Admission Status: Observation (1) UTI (urinary tract infection) Status: Acute Assessment & Plan: Ceftriaxone started presumptively, awaiting culture. No evidence of sepsis. Qualifiers: Qualified Codes: N30.00 - Acute cystitis without hematuria (2) Fall Status: Acute Assessment & Plan: Combination likely of arthritis, deconditioning and infection. PT to eval. Qualifiers: Qualified Codes: W19.XXXA - Unspecified fall, initial encounter (3) Hypertension Status: Chronic Assessment & Plan: Resume home medication Qualifiers: Qualified Codes: I10 - Essential (primary) hypertension (4) Hyperlipidemia Status: Chronic Assessment & Plan: Resume home pravastatin, consider changing to more potent statin (5) Diabetes mellitus with hyperglycemia Status: Chronic Assessment & Plan: Hold home glipizide and Victoza, continue metformin. Diabetic diet and sliding scale insulin as needed. Qualifiers: Qualified Codes: E11.65 - Type 2 diabetes mellitus with hyperglycemia (6) Chronic kidney disease Status: Chronic Assessment & Plan: Stable since 2011, monitor. (7) History of DVT (deep vein thrombosis) Status: Chronic Assessment & Plan: Continue home apixaban (8) Presence of IVC filter Status: Chronic (9) DVT prophylaxis Status: Acute Assessment & Plan: On therapeutic apixaban Clinical Quality Measures DVT/VTE Risk/Contraindication: Risk Factor Score Per Nursin RFS Level Per Nursing on Admit: 4+=Very High Copy Copies To 1: LETTY Beltran MD January 01, 2018 10:57 am
[2018-01-01 12:00] VITALS: BP 157/70
--- NOTE | 2018-01-01 14:02 | Physical Therapy Evaluation ---
PT Evaluation-General Medical Diagnosis Admission Date December 31, 2017 at 18:50 Medical Diagnosis: fall/UTI/N&V Onset Date: December 31, 2017 Therapy Diagnosis Therapy Diagnosis: generalized weakness/debility Height/Weight Height (Feet): 6 Height (Inches): 0.00 Weight (Pounds): 237 Weight (Ounces): 1.6 Precautions Precautions/Isolations: Fall Prevention, Standard Precautions Weight Bear Status Right Lower Extremity: Right Full Weight Bearing Left Lower Extremity: Left Full Weight Bearing Referral Physician: Jose Reason for Referral: Evaluation/Treatment Medical History Pertinent Medical History: DM, HTN Additional Medical History progressive weakness x 3 days Current History progressive weakness and falls, however, patient reports 1 fall only Reviewed History: Yes Social History Home: Single Level Current Living Status: Spouse Entry Into Home: Stairs With Railing PT Steps Into Home: 3 Prior/Core FIM Prior Level of Function Functional [place] Measure 0=Not Assessed/NA 4=Minimal Assistance 1=Total Assistance 5=Supervision or Setup 2=Maximal Assistance 6=Modified [place] 3=Moderate Assistance 7=Complete [place] Bed Mobility: 6 Transfers (B,C,W/C) (FIM): 6 Gait: 6 uses cane PT Evaluation-Current Subjective Patient reluctantly agrees to PT. Pain Numeric Pain Scale: 10-Worst Possible Pain Location: Medial Location Body Site: Back Pain Description: Acute Objective Patient Orientation: Normal For Age Problem Solving: Fair Attachments: IV ROM/Strength ROM Lower Extremities bilateral LE WNL Strength Lower Extremities 4/5 grossly bilaterally Integumentary/Posture Integumentary refer to nursing notes Bowel Incontinence: No Bladder Incontinence: No Posture trunk flexed posture in stand with refusal to stand erect or attempt due to back pain. Neuromuscular (Tone, Coordination, Reflexes) diminished coordination and very resistive with all mobility with patient demonstrating resistance with PT assist with bilateral LE mobility Sensory Vision: Wears Glasses Hearing: Impaired Sensation Right Lower Extremit: Impaired Sensation Left Lower Extremity: Impaired Transfers Functional [place] Measure 0=Not Assessed/NA 4=Minimal Assistance 1=Total Assistance 5=Supervision or Setup 2=Maximal Assistance 6=Modified [place] 3=Moderate Assistance 7=Complete [place] Transfers (B, C, W/C) (FIM): 3 Scootin Rollin Supine to/from Sit: 3 Sit to/from Stand: 5 Gait Mode of Locomotion: Walk Anticipated Mode of Locomotion: Walk Gait (FIM): 2 Distance (FIM): 0=079-97 ft Distance: 50' Gait Level of Assist: 4 Gait Persons Needed: 1 Gait Assistive Device: FWW Comments/Gait Description slow, shuffle gait sequence with left LE lag and skilled verbal instruction for body placement in FWW with patient unable to demonstrate safely Balance Sitting Static: Fair Sitting Dynamic: Fair Standing Static: Fair Standing Dynamic: Fair Assessment/Needs 77 y.o. male, will benefit from skilled PT to address functional strength and mobility to improve current LOF. Patient is limited with bed mobility due to back pain and is very resistive with all mobility assisted by PT. Rehab Potential: Fair PT Metal Painter Goals Detention Goals PT Metal Painter Goals Time Frame: Jan 11, 2018 Transfers (B,C,W/C) (FIM): 6 Gait (FIM): 6 Gait distance (FIM): 3=150 ft Gait Level of Assist: 6 Gait Assistive Device: FWW PT Plan Problem List Problem List: Activity Tolerance, Functional Strength, Safety, Balance, Gait, Transfer, Bed Mobility Treatment/Plan Treatment Plan: Continue Plan of Care Treatment Plan: Bed Mobility, Education, Functional Activity Ct, Functional Strength, Gait, Safety, Therapeutic Exercise, Transfers Treatment Duration: Jan 11, 2018 Frequency: 6 times per week Estimated Hrs Per Day: .25 hour per day Patient and/or Family Agrees t: Yes Safety Risks/Education Patient Education: Gait Training, Safety Issues Teaching Recipient: Patient Teaching Methods: Demonstration, Discussion Response to Teaching: Unable to Return Demonstration, Reinforcement Needed Discharge Recommendations Therapy D/C Recommendations: Acute Rehab, Mcc Placement, Alf (TCU/NH) Time/GCodes Time In: 1315 Time Out: 1336 Total Billed Treatment Time: 21 Total Billed Treatment 1 visit EVMod 21 min G Codes Necessary: Yes PT/OT Therapy GCodes Therapy Functional Limitation: Physical Therapy Test(s)/Tool used to determine: FIM Functional Limitation-Current Charge Code: MOBCUR Modifier: CL Functional Limitation-Goal Charge Code: MOBGOAL Modifier: MARI AINES ALBRECHT PT January 01, 2018 14:02
[2018-01-01 16:05] VITALS: BP 155/70
[2018-01-01] MEDS: metFORMIN 500 MG (GLUCOPHAGE) TAB PO SCH (16:58)
[2018-01-01 19:25] VITALS: BP 157/74
[2018-01-01] MEDS: SIMvastatin 20 MG (ZOCOR) TAB PO SCH (21:21)
[2018-01-01] MEDS: ASPIRIN E.C. 81 MG (ECOTRIN) TAB PO SCH (21:21)
[2018-01-02 00:09] VITALS: BP 153/88
[2018-01-02] MEDS: HYDROcodone/APAP 5 MG/325 MG (LORTAB) TAB PO PRN ×2 (04:02→20:00)
[2018-01-02 04:44] VITALS: BP 144/82
[2018-01-02 06:09] LABS: HEMOGLOBIN 12.4 G/DL (13.3-17.7); MEAN PLATELET VOLUME 11.3 FL (7.4-10.4); RED BLOOD COUNT 4.24 10^6/uL (4.35-5.85); RED CELL DISTRIBUTION WIDTH 12.9 % (10.0-14.5); WHITE BLOOD COUNT 9.6 10^3/uL (4.3-11.0)
[2018-01-02] MEDS: inSUlin ASPART (NovoLOG) 1 UNIT/0.01 ML (CHARGE PER UNIT) SC SCH ×4 (06:19→21:06)
[2018-01-02] MEDS: metFORMIN 500 MG (GLUCOPHAGE) TAB PO SCH ×2 (06:19→16:40)
[2018-01-02] MEDS: NS IV 1000 ML 1,000 ML IV SCH ×4 (06:19→23:20)
[2018-01-02 06:38] LABS: CALCIUM 8.2 MG/DL (8.5-10.1); CREATININE SERUM 1.31 MG/DL (0.60-1.30); POTASSIUM 4.5 MMOL/L (3.6-5.0)
[2018-01-02 08:00] VITALS: BP 178/77
[2018-01-02] MEDS: ENALAPRIL 10 MG (VASOTEC) TAB PO SCH (09:30)
[2018-01-02] MEDS: cefTRIAXone 1 GM/NS 50 ML IVPB IV SCH ×2 (09:30)
[2018-01-02] MEDS: ASPIRIN E.C. 81 MG (ECOTRIN) TAB PO SCH ×2 (09:30→20:00)
[2018-01-02] MEDS: APIXABAN 5 MG (ELIQUIS) TABLET PO SCH ×2 (09:31→20:00)
--- NOTE | 2018-01-02 11:15 | Physical Therapy Daily Note ---
PT Daily Note-Current Subjective Patient in bed pre tx, agrees to PT, has 8/10 pain in back and right knee. Appearance Patient in recliner post tx with nurse call, phone, tray, all needs met. Mental Status Patient Orientation: Normal For Age Attachments: IV Transfers Functional [place] Measure 0=Not Assessed/NA 4=Minimal Assistance 1=Total Assistance 5=Supervision or Setup 2=Maximal Assistance 6=Modified [place] 3=Moderate Assistance 7=Complete IndependenceIRFPAI Quality Coding Scale 6 Independent with activity with or without an assistive device 5 Patient requires set up or clean up by helper. Patient completes activity by themselves 4 Supervision or touching assist (CGA). [place] provide cues , steadying assist 3 The helper provides less than half the effort to complete the activity 2 The helper provides more than half the effort to complete the activity 1 Dependent. The helper does all the effort to complete an activity 7 Patient refused to complete or attempt activity 9 The patient did not perform the activity before the current illness or injury 88 Not attempted due to Medical conditions or safety concerns Transfers (B, C, W/C) (FIM): 3 Scootin Rollin Supine to/from Sit: 3 Sit to/from Stand: 4 Bed to/from Chair: 4 Patient needed several attempts to stand. Weight Bearing Right Lower Extremity: Right Full Weight Bearing Left Lower Extremity: Left Full Weight Bearing Gait Training Gait (FIM): 1 Distance: 20' Gait Level of Assist: 4 Gait Persons Needed: 1 Gait Assistive Device: FWW Patient needed min assist to help guide walker, tends to keep walker too far out in front, tends to keep left leg outside of walker. Very poor endurance, does not stand up straight. Exercises Seated Therapy Exercises: Ankle pumps, Long arc quads Seated Reps: 20 Treatments bed mobility and transfers, ambulation, functional strengthening Assessment Current Status: Poor Progress decline in ambulation PT Manager Requirements Goals Snf Goals PT Snf Goals Time Frame: Jan 11, 2018 Transfers (B,C,W/C) (FIM): 6 Gait (FIM): 6 Gait distance (FIM): 3=150 ft Gait Level of Assist: 6 Gait Assistive Device: FWW PT Plan Problem List Problem List: Activity Tolerance, Functional Strength, Safety, Balance, Gait, Transfer, Bed Mobility, ROM Treatment/Plan Treatment Plan: Continue Plan of Care Treatment Plan: Bed Mobility, Education, Functional Activity Ct, Functional Strength, Gait, Safety, Therapeutic Exercise, Transfers Treatment Duration: Jan 11, 2018 Frequency: 6 times per week Estimated Hrs Per Day: .25 hour per day Patient and/or Family Agrees t: Yes Safety Risks/Education Patient Education: Gait Training, Transfer Techniques, Correct Positioning, Safety Issues Teaching Recipient: Patient Teaching Methods: Demonstration, Discussion Response to Teaching: Reinforcement Needed Time/GCodes Time In: 1045 Time Out: 1105 Total Billed Treatment Time: 20 Total Billed Treatment 1 visit GT 20' PT/OT Therapy GCodes Therapy Functional Limitation: Physical Therapy Test(s)/Tool used to determine: FIM Functional Limitation-Current Charge Code: MOBCUR Modifier: CL Functional Limitation-Goal Charge Code: MOBGOAL Modifier: MAGDIEL GARZA PT January 02, 2018 11:15
[2018-01-02 12:00] VITALS: BP 165/72
[2018-01-02 15:15] VITALS: BP 175/79
--- NOTE | 2018-01-02 15:56 | Progress Note (SOAP) ---
Subjective Subjective/Events-last exam Continues to feel weak, reports slightly better than yesterday. He is resistant to the idea of snf and states if he needs therapy someone can come to his house. Review of Systems Date Seen by Provider: January 02, 2018 Time Seen by Provider: 11:31 Objective Exam Last Set of Vital Signs Vital Signs Date Time Temp Pulse Resp B/P (MAP) Pulse Ox O2 Delivery O2 Flow Rate FiO2 01/02/18 15:15 98.9 88 18 175/79 (111) 95 Room Air Capillary Refill : Less Than 3 Seconds I&O Intake and Output 01/02/18 00:00 Intake Total 4240 ml Output Total 1250 ml Balance 2990 ml Intake Oral 1140 ml IV Total 3100 ml Output Urine Total 1250 ml # Voids 1 General: Alert, No Acute Distress Lungs: Clear to Auscultation, Normal Air Movement Heart: Regular Rate, No Murmurs Neuro: Normal Speech Psych/Mental Status: Mental Status NL Results/Procedures Lab Laboratory Tests 01/01/18 16:27: Glucometer 221H 01/01/18 20:51: Glucometer 207H 01/02/18 05:35: Glucometer 192H 01/02/18 05:37: White Blood Count 9.6, Red Blood Count 4.24L, Hemoglobin 12.4L, Hematocrit 36L, Mean Corpuscular Volume 84, Mean Corpuscular Hemoglobin 29, Mean Corpuscular Hemoglobin Concent 35, Red Cell Distribution Width 12.9, Platelet Count 173, Mean Platelet Volume 11.3H, Sodium Level 139, Potassium Level 4.5, Chloride Level 112H, Carbon Dioxide Level 18L, Anion Gap 9, Blood Urea Nitrogen 16, Creatinine 1.31H, Estimat Glomerular Filtration Rate 53, BUN/Creatinine Ratio 12 , Glucose Level 191H, Calcium Level 8.2L 01/02/18 11:11: Glucometer 222H Microbiology 12/31/17 Urine Culture - Final, Complete Aerococcus urinae See Report Radiology CXR with stable elevated right hemidiaphragm Knee x-rays with tricompartmental osteoarthritis, no acute changes Assessment/Plan Assessment/Plan (1) UTI (urinary tract infection) Status: Acute Assessment & Plan: Ceftriaxone started presumptively, awaiting culture. No evidence of sepsis. 01/02- culture with aerococcus, should be sensitive to PCN Qualifiers: Qualified Codes: N30.00 - Acute cystitis without hematuria (2) Fall Status: Acute Assessment & Plan: Combination likely of arthritis, deconditioning and infection. PT to eval. Likely will need home PT at least on d/c. Qualifiers: Qualified Codes: W19.XXXA - Unspecified fall, initial encounter (3) Hypertension Status: Chronic Assessment & Plan: Resume home medication Qualifiers: Qualified Codes: I10 - Essential (primary) hypertension (4) Hyperlipidemia Status: Chronic Assessment & Plan: Resume home pravastatin, consider changing to more potent statin (5) Diabetes mellitus with hyperglycemia Status: Chronic Assessment & Plan: Hold home glipizide and Victoza, continue metformin. Diabetic diet and sliding scale insulin as needed. Qualifiers: Qualified Codes: E11.65 - Type 2 diabetes mellitus with hyperglycemia (6) Chronic kidney disease Status: Chronic Assessment & Plan: Stable since 2011, monitor. 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
[2018-01-02 19:05] VITALS: BP 172/79
[2018-01-02] MEDS: SIMvastatin 20 MG (ZOCOR) TAB PO SCH (20:00)
[2018-01-03 00:20] VITALS: BP 154/88
[2018-01-03] MEDS: HYDROcodone/APAP 5 MG/325 MG (LORTAB) TAB PO PRN ×2 (03:23→14:53)
[2018-01-03 04:05] VITALS: BP 160/85
[2018-01-03 05:03] LABS: HEMOGLOBIN 11.9 G/DL (13.3-17.7); RED BLOOD COUNT 4.06 10^6/uL (4.35-5.85); WHITE BLOOD COUNT 7.9 10^3/uL (4.3-11.0)
[2018-01-03 05:59] LABS: CALCIUM 8.1 MG/DL (8.5-10.1); CREATININE SERUM 1.22 MG/DL (0.60-1.30); POTASSIUM 4.3 MMOL/L (3.6-5.0)
[2018-01-03] MEDS: metFORMIN 500 MG (GLUCOPHAGE) TAB PO SCH ×2 (06:46→16:57)
[2018-01-03] MEDS: inSUlin ASPART (NovoLOG) 1 UNIT/0.01 ML (CHARGE PER UNIT) SC SCH ×4 (06:46→21:56)
[2018-01-03] MEDS: NS IV 1000 ML 1,000 ML IV SCH ×2 (06:48→15:11)
[2018-01-03 08:00] VITALS: BP 186/69
[2018-01-03] MEDS: APIXABAN 5 MG (ELIQUIS) TABLET PO SCH ×2 (08:11→21:56)
[2018-01-03] MEDS: ASPIRIN E.C. 81 MG (ECOTRIN) TAB PO SCH ×2 (08:11→21:56)
[2018-01-03] MEDS: cefTRIAXone 1 GM/NS 50 ML IVPB IV SCH ×2 (08:11)
[2018-01-03] MEDS: ENALAPRIL 10 MG (VASOTEC) TAB PO SCH (08:12)
--- NOTE | 2018-01-03 11:14 | Physical Therapy Daily Note ---
PT Daily Note-Current Subjective Patient in bed pre tx, agrees to PT, has 8/10 pain in low back. Patient states he has much more pain today. He has a urinal propped up in his lap but urine has soaked his bed and gown. Appearance Patient in recliner post tx with nurse call, phone, tray, all needs met. Patient has new gown on and bed has been changed by nursing. Mental Status Patient Orientation: Person, Place, Situation Attachments: IV Transfers Functional [place] Measure 0=Not Assessed/NA 4=Minimal Assistance 1=Total Assistance 5=Supervision or Setup 2=Maximal Assistance 6=Modified [place] 3=Moderate Assistance 7=Complete IndependenceIRFPAI Quality Coding Scale 6 Independent with activity with or without an assistive device 5 Patient requires set up or clean up by helper. Patient completes activity by themselves 4 Supervision or touching assist (CGA). [place] provide cues , steadying assist 3 The helper provides less than half the effort to complete the activity 2 The helper provides more than half the effort to complete the activity 1 Dependent. The helper does all the effort to complete an activity 7 Patient refused to complete or attempt activity 9 The patient did not perform the activity before the current illness or injury 88 Not attempted due to Medical conditions or safety concerns Transfers (B, C, W/C) (FIM): 2 Scootin Rollin Supine to/from Sit: 2 Sit to/from Stand: 3 Bed to/from Chair: 3 Patient max assist for bed mobility and supine to sit. He resisted supine to sit and scooting due to low back pain. Weight Bearing Right Lower Extremity: Right Full Weight Bearing Left Lower Extremity: Left Full Weight Bearing Gait Training Distance: 5' Gait Level of Assist: 4 Gait Persons Needed: 1 Gait Assistive Device: FWW Patient ambulates slowly and with a step to gait pattern. His tends to leave his left leg outside the walker and walker too far forward. He needs some assist with guiding walker and keeping it closer to him. Exercises Seated Therapy Exercises: Ankle pumps, Long arc quads, Hip flexion Seated Reps: 10 Treatments bed mobility, transfers, ambulation, functional strengthening Assessment Current Status: Poor Progress decline in general mobility due to back pain PT Fci Goals Flame Burner Goals PT Fci Goals Time Frame: Jan 11, 2018 Transfers (B,C,W/C) (FIM): 6 Gait (FIM): 6 Gait distance (FIM): 3=150 ft Gait Level of Assist: 6 Gait Assistive Device: FWW PT Plan Problem List Problem List: Activity Tolerance, Functional Strength, Safety, Balance, Gait, Transfer, Bed Mobility, ROM Treatment/Plan Treatment Plan: Continue Plan of Care Treatment Plan: Bed Mobility, Education, Functional Activity Ct, Functional Strength, Gait, Safety, Therapeutic Exercise, Transfers Treatment Duration: Jan 11, 2018 Frequency: 6 times per week Estimated Hrs Per Day: .25 hour per day Patient and/or Family Agrees t: Yes Safety Risks/Education Patient Education: Gait Training, Transfer Techniques, Correct Positioning, Safety Issues Teaching Recipient: Patient Teaching Methods: Demonstration, Discussion Response to Teaching: Reinforcement Needed Time/GCodes Time In: 1145 Time Out: 1205 Total Billed Treatment Time: 20 Total Billed Treatment 1 visit GT 20' PT/OT Therapy GCodes Therapy Functional Limitation: Physical Therapy Test(s)/Tool used to determine: FIM Functional Limitation-Current Charge Code: MOBCUTony Modifier: CL Functional Limitation-Goal Charge Code: MOBJENNIFER Modifier: MAGDIEL GARZA PT January 03, 2018 11:14
[2018-01-03 12:00] VITALS: BP 152/64
--- NOTE | 2018-01-03 14:49 | Occupational Therapy Eval ---
OT Evaluation-General/PLF Medical Diagnosis Admission Date January 02, 2018 at 13:30 Medical Diagnosis: fall/UTI/N&V Onset Date: December 31, 2017 Therapy Diagnosis Therapy Diagnosis: decr self care, weakness, decr funct mobility, decr act rebekah Height/Weight Height (Feet): 6 Height (Inches): 0.00 Weight (Pounds): 237 Weight (Ounces): 1.6 Precautions Precautions/Isolations: Fall Prevention, Standard Precautions, Pressure Ulcer Safety Interventions: None Referral Physician: Jose Referral Reason: Evaluation/Treatment Medical History Pertinent Medical History: Arthritis, DM, HTN, Smoking Additional Medical History Bilat DVT. IVC filter. L knee arthroscopy. TURP. Chronic kidney disease Current History Admitted through ED, with weakness, nausea/vomiting. Fell at home and couldn't get up. Now has back pain and decr mobility Reviewed History: Yes Social History Home: Single Level Current Living Status: Spouse Entry Into Home: Stairs With Railing Steps Into Home: 3 ADL-Prior Level of Function ADL PLOF Comments Pt reported that he has been able to manage all of his basic self care needs and chores around the home. He doesn't like to do outside work and no longer drives because his license . 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 DME/Equipment: Bath Chair, Grab Bars, Shower, Shower Hose Sample Cutter, Tall Toilet OT Current Status Subjective Pt seen in bed, agreeable to OT. Pain in low back reported 4/10. Pt reported he did not have back pain before his ambulance ride to the ED. Appearance Alert, cooperative Mental Status/Objective Patient Orientation: Person, Place, Time, Situation Attachments: IV Current Glasses/Contacts: Yes Hearing Aids: No Dentures/Partials: No Hand Dominance: Right Upper Extremity ROM Grossly WFL bilat. End of middle finger L hand is missing Upper Extremity Strength Grossly 4+/5 bilat ADL-Treatment ADL-Current Pt needed mod assist to move to EOB and back to supine. His transfers with PT today were max assist and he only walked 5 feet with FWW. He has not been up out of bed to toilet or shower and has not dressed. He said that he has been able to feed himself and can use urinal but will need help to use BSC. Functional [place] Measure 0=Not Assessed/NA 4=Minimal Assistance 1=Total Assistance 5=Supervision or Setup 2=Maximal Assistance 6=Modified [place] 3=Moderate Assistance 7=Complete IndependenceIRFPAI Quality Coding Scale 6 Independent with activity with or without an assistive device 5 Patient requires set up or clean up by helper. Patient completes activity by themselves 4 Supervision or touching assist (CGA). [place] provide cues , steadying assist 3 The helper provides less than half the effort to complete the activity 2 The helper provides more than half the effort to complete the activity 1 Dependent. The helper does all the effort to complete an activity 7 Patient refused to complete or attempt activity 9 The patient did not perform the activity before the current illness or injury 88 Not attempted due to Medical conditions or safety concerns Education OT Patient Education: Purpose of tx/functional activities, Rehab process Teaching Recipient: Patient Teaching Methods: Discussion Response to Teaching: Verbalize Understanding OT Fiberglass Roller Goals Alf Goals Time Frame: Jan 24, 2018 Eating (FIM): 7 Grooming(FIM): 6 Bathing(FIM): 5 Upper Body Dressing(FIM): 6 Lower Body Dressing(FIM): 6 Toileting(FIM): 6 Toilet/Commode Transfer(FIM): 6 Shower Transfer(FIM): 6 Additional Goals: 1-Demonstrate ADL Tasks, 2-Verbalize Understanding, 3- ImproveStrength/Ct 1=Demonstrate adherence to instructed precautions during ADL tasks. 2=Patient will verbalize/demonstrate understanding of assistive devices/ modifications for ADL. 3=Patient will improve strength/tolerance for activity to enable patient to perform ADL's. OT Education/Plan Problem List/Assessment Assessment: Decreased Activ Tolerance, Decreased UE Strength, Dependent Transfers, Impaired Bed Mobility, Impaired Self-Care Skills Discharge Recommendations Plan Pt would benefit from skilled OT to increase his independence in basic self care to allow him to safely return to his home Plan/Recommendations: Continue POC Treatment Plan/Plan of Care Treatment,Training & Education: Yes Patient would benefit from OT for education, treatment and training to promote independence in ADL's, mobility, safety and/or upper extremity function for ADL' s. Plan of Care: ADL Retraining, Functional Mobility, UE Funct Exercise/Act, UE Neuromus Re-Ed/Coord Treatment Duration: Jan 25, 2018 Frequency: 5 times per week Estimated Hrs Per Day: .5 hour per day Agreement: Yes Rehab Potential: Fair Time/GCodes Start Time: 14:10 Stop Time: 14:30 Total Time Billed (hr/min): 20 Billed Treatment Time visit, 20 minutes evaluation moderate intensity PT/OT Therapy GCodes Therapy Functional Limitation: Physical Therapy Test(s)/Tool used to determine: FIM Functional Limitation-Current Charge Code: MOBCUR Modifier: CL Functional Limitation-Goal Charge Code: MOBGOAL Modifier: ARISTEO ENGLAND OT January 03, 2018 14:49
[2018-01-03 15:50] VITALS: BP 176/72
[2018-01-03] MEDS: fentaNYL INJECTION 100 MCG/2 ML AMP IV PRN (18:19)
[2018-01-03 19:30] VITALS: BP 184/88
--- NOTE | 2018-01-03 20:47 | Progress Note (SOAP) ---
Subjective Subjective/Events-last exam Feeling worse again today, a lot of pain in his back and poor mobility. Review of Systems Date Seen by Provider: January 03, 2018 Time Seen by Provider: 10:21 Objective Exam Last Set of Vital Signs Vital Signs Date Time Temp Pulse Resp B/P (MAP) Pulse Ox O2 Delivery O2 Flow Rate FiO2 01/03/18 19:30 98.7 86 20 184/88 (120) 97 Room Air Capillary Refill : Less Than 3 Seconds I&O Intake and Output 01/03/18 00:00 Intake Total 4950 ml Output Total 1670 ml Balance 3280 ml Intake Oral 1900 ml IV Total 3050 ml Output Urine Total 1670 ml General: Alert, No Acute Distress Lungs: Clear to Auscultation, Normal Air Movement Heart: Regular Rate, No Murmurs Psych/Mental Status: Mental Status NL Results/Procedures Lab Laboratory Tests 01/02/18 20:48: Glucometer 188H 01/03/18 04:22: White Blood Count 7.9, Red Blood Count 4.06L, Hemoglobin 11.9L, Hematocrit 34L, Mean Corpuscular Volume 83, Mean Corpuscular Hemoglobin 29, Mean Corpuscular Hemoglobin Concent 35, Red Cell Distribution Width 13.0, Platelet Count 174, Mean Platelet Volume 11.0H, Sodium Level 139, Potassium Level 4.3, Chloride Level 114H, Carbon Dioxide Level 17L, Anion Gap 8, Blood Urea Nitrogen 13, Creatinine 1.22, Estimat Glomerular Filtration Rate 58, BUN/Creatinine Ratio 11 , Glucose Level 209H, Calcium Level 8.1L 01/03/18 05:50: Glucometer 215H 01/03/18 10:56: Glucometer 225H 01/03/18 16:22: Glucometer 182H Microbiology 12/31/17 Urine Culture - Final, Complete Aerococcus urinae See Report Radiology CXR with stable elevated right hemidiaphragm Knee x-rays with tricompartmental osteoarthritis, no acute changes Assessment/Plan Assessment/Plan (1) UTI (urinary tract infection) Status: Acute Assessment & Plan: Ceftriaxone started presumptively, awaiting culture. No evidence of sepsis. 01/02- culture with aerococcus, should be sensitive to PCN Qualifiers: Qualified Codes: N30.00 - Acute cystitis without hematuria (2) Fall Status: Acute Assessment & Plan: Combination likely of arthritis, deconditioning and infection. PT to eval. Likely will need home PT at least on d/c. Qualifies for inpatient rehab, waiting on insurance approval. Qualifiers: Qualified Codes: W19.XXXA - Unspecified fall, initial encounter (3) Hypertension Status: Chronic Assessment & Plan: Resume home medication Qualifiers: Qualified Codes: I10 - Essential (primary) hypertension (4) Hyperlipidemia Status: Chronic Assessment & Plan: Resume home pravastatin, consider changing to more potent statin (5) Diabetes mellitus with hyperglycemia Status: Chronic Assessment & Plan: Hold home glipizide and Victoza, continue metformin. Diabetic diet and sliding scale insulin as needed. Qualifiers: Qualified Codes: E11.65 - Type 2 diabetes mellitus with hyperglycemia (6) Chronic kidney disease Status: Chronic Assessment & Plan: Stable since 2011, monitor. (7) History of DVT (deep vein thrombosis) Status: Chronic Assessment & Plan: Continue home apixaban (8) Presence of IVC filter Status: Chronic (9) DVT prophylaxis Status: Acute Assessment & Plan: On therapeutic apixaban Clinical Quality Measures DVT/VTE Risk/Contraindication: Risk Factor Score Per Nursin RFS Level Per Nursing on Admit: 4+=Very High LETTY SYED MD January 03, 2018 8:47 pm
[2018-01-03] MEDS: SIMvastatin 20 MG (ZOCOR) TAB PO SCH (21:56)
[2018-01-04] VITALS: BP 196/87
[2018-01-04] MEDS: fentaNYL INJECTION 100 MCG/2 ML AMP IV PRN (04:34)
[2018-01-04] MEDS: HYDROcodone/APAP 5 MG/325 MG (LORTAB) TAB PO PRN ×3 (04:35→16:03)
[2018-01-04 05:00] VITALS: BP 187/86
[2018-01-04] MEDS: inSUlin ASPART (NovoLOG) 1 UNIT/0.01 ML (CHARGE PER UNIT) SC SCH ×4 (05:34→20:48)
[2018-01-04 05:37] LABS: BASOPHILS % (AUTO) 0 % (0-10); EOSINOPHILS # (AUTO) 0.3 10^3/uL (0.0-0.3); EOSINOPHILS % (AUTO) 4 % (0-10); HEMATOCRIT 35 % (40-54); HEMOGLOBIN 12.2 G/DL (13.3-17.7); LYMPHOCYTES # (AUTO) 1.1 X 10^3 (1.0-4.0); LYMPHOCYTES % (AUTO) 13 % (12-44); MEAN CORPUSCULAR HEMOGLOBIN 29 PG (25-34); MEAN CORPUSCULAR HGB CONC 35 G/DL (32-36); MEAN CORPUSCULAR VOLUME 83 FL (80-99); MEAN PLATELET VOLUME 10.8 FL (7.4-10.4); MONOCYTES # (AUTO) 0.8 X 10^3 (0.0-1.0); MONOCYTES % (AUTO) 10 % (0-12); NEUTROPHILS # (AUTO) 6.3 X 10^3 (1.8-7.8); NEUTROPHILS % (AUTO) 73 % (42-75); PLATELET COUNT 174 10^3/uL (130-400); RED BLOOD COUNT 4.15 10^6/uL (4.35-5.85); WHITE BLOOD COUNT 8.5 10^3/uL (4.3-11.0)
[2018-01-04 05:43] LABS: BUN/CREATININE RATIO 11; CALCIUM 8.5 MG/DL (8.5-10.1); CARBON DIOXIDE 18 MMOL/L (21-32); CHLORIDE 112 MMOL/L (98-107); CREATININE SERUM 1.17 MG/DL (0.60-1.30); GFR ESTIMATED > 60; GLUCOSE 183 MG/DL (70-105); POTASSIUM 4.2 MMOL/L (3.6-5.0); SODIUM 138 MMOL/L (135-145)
[2018-01-04] MEDS: metFORMIN 500 MG (GLUCOPHAGE) TAB PO SCH ×2 (06:17→18:15)
--- NOTE | 2018-01-04 07:47 | Diagnostic Imaging Report ---
EXAMINATION: Lumbar spine radiographs, three views. COMPARISON: None. HISTORY: 77-year-old male, fall. Back pain. FINDINGS: There is an inferior vena cava filter. There are five lumbar type vertebral bodies. There is no identified compression deformity. There is some loss of normal lumbar lordosis. There is multilevel severe disc and loss at the lumbar spine levels with multilevel degenerative related endplate changes. There are flowing osteophytes of the thoracic spine without pronounced disc height loss which may potentially reflect diffuse idiopathic skeletal hyperostosis. There are mild bilateral sacroiliac degenerative changes. There are mild multilevel facet degenerative changes of the lumbar spine. IMPRESSION: 1. No compression deformity or fracture. 2. Multilevel severe disc degenerative changes of the lumbar spine with multilevel mild facet degenerative changes of the lumbar spine. 3. Mild bilateral sacroiliac degenerative changes. Dictated by: Dictated on workstation # [id number]
[2018-01-04 08:00] VITALS: BP 188/88
[2018-01-04] MEDS: APIXABAN 5 MG (ELIQUIS) TABLET PO SCH ×2 (09:15→20:49)
[2018-01-04] MEDS: cefTRIAXone 1 GM/NS 50 ML IVPB IV SCH ×2 (09:15)
[2018-01-04] MEDS: ASPIRIN E.C. 81 MG (ECOTRIN) TAB PO SCH ×2 (09:16→20:49)
[2018-01-04] MEDS: ENALAPRIL 10 MG (VASOTEC) TAB PO SCH (09:32)
[2018-01-04] MEDS: glipiZIDE 5 MG (GLUCOTROL) TAB PO SCH (09:32)
[2018-01-04] MEDS: HYDROCHLOROTHIAZIDE 25 MG (HCTZ) TAB PO SCH (09:32)
--- NOTE | 2018-01-04 11:18 | Progress Note (SOAP) ---
Subjective Subjective/Events-last exam Afebrile, continues to feel extremely weak in legs and having severe low back pain which he states started when he was [place] going off the curb on the gurney with EMS after his fall. He denies back pain before his fall or after his fall until that event. He has had urinary incontinence for a few weeks. He denies stool incontinence, he denies numbness or tingling in his legs or perineum. He states he can barely lift his legs from the bed, but if someone helps him to the side and to stand up he is able to support himself and walk with assistance. Review of Systems Date Seen by Provider: January 04, 2018 Time Seen by Provider: 09:00 Objective Exam Last Set of Vital Signs Vital Signs Date Time Temp Pulse Resp B/P (MAP) Pulse Ox O2 Delivery O2 Flow Rate FiO2 01/04/18 08:00 98.5 92 18 188/88 (121) 94 Room Air Capillary Refill : Less Than 3 Seconds I&O Intake and Output 01/04/18 00:00 Intake Total 3750 ml Output Total 1950 ml Balance 1800 ml Intake Oral 1750 ml IV Total 2000 ml Output Urine Total 1950 ml # Voids 1 General: Alert, No Acute Distress Lungs: Clear to Auscultation, Normal Air Movement Heart: Regular Rate, No Murmurs Neuro: Normal Speech, Other (strength in hip flexion 3+/5, strength in knee flexion 3+/5. 5/5 strength in ankle dorsiflexion/plantarflexion) Results/Procedures Lab Laboratory Tests 01/03/18 16:22: Glucometer 182H 01/03/18 21:34: Glucometer 217H 01/04/18 04:17: Glucometer 195H 01/04/18 04:18: White Blood Count 8.5, Red Blood Count 4.15L, Hemoglobin 12.2L, Hematocrit 35L, Mean Corpuscular Volume 83, Mean Corpuscular Hemoglobin 29, Mean Corpuscular Hemoglobin Concent 35, Red Cell Distribution Width 13.0, Platelet Count 174, Mean Platelet Volume 10.8H, Neutrophils (%) (Auto) 73, Lymphocytes (%) (Auto) 13 , Monocytes (%) (Auto) 10, Eosinophils (%) (Auto) 4, Basophils (%) (Auto) 0, Neutrophils # (Auto) 6.3, Lymphocytes # (Auto) 1.1, Monocytes # (Auto) 0.8, Eosinophils # (Auto) 0.3, Basophils # (Auto) 0.0, Sodium Level 138, Potassium Level 4.2, Chloride Level 112H, Carbon Dioxide Level 18L, Anion Gap 8, Blood Urea Nitrogen 13, Creatinine 1.17, Estimat Glomerular Filtration Rate > 60, BUN/ Creatinine Ratio 11, Glucose Level 183H, Calcium Level 8.5 Microbiology 12/31/17 Urine Culture - Final, Complete Aerococcus urinae See Report Radiology CXR with stable elevated right hemidiaphragm Knee x-rays with tricompartmental osteoarthritis, no acute changes Assessment/Plan Assessment/Plan (1) UTI (urinary tract infection) Status: Acute Assessment & Plan: Ceftriaxone started presumptively, awaiting culture. No evidence of sepsis. 01/02- culture with aerococcus, should be sensitive to PCN Qualifiers: Qualified Codes: N30.00 - Acute cystitis without hematuria (2) Low back pain Status: Acute Assessment & Plan: Xray with degenerative changes and scoliosis. Given weakness and urinary incontinence, MRI ordered, machine is currently down, hopefully will be obtained this pm (01/04) and if unremarkable, will discuss further with medical logistics specialist whether he can go to rehab or not. Qualifiers: Qualified Codes: M54.5 - Low back pain (3) Fall Status: Acute Assessment & Plan: Combination likely of arthritis, deconditioning and infection. PT to eval. Likely will need home PT at least on d/c. Qualifies for inpatient rehab, waiting on insurance approval. 01/04 denied at this time due to concern about back pain- work-up in process. Qualifiers: Qualified Codes: W19.XXXA - Unspecified fall, initial encounter (4) Hypertension Status: Chronic Assessment & Plan: Resume home medication 01/04 elevated in spite of home enalapril, add HCTZ Qualifiers: Qualified Codes: I10 - Essential (primary) hypertension (5) Hyperlipidemia Status: Chronic Assessment & Plan: Resume home pravastatin, consider changing to more potent statin (6) Diabetes mellitus with hyperglycemia Status: Chronic Assessment & Plan: Hold home glipizide and Victoza, continue metformin. Diabetic diet and sliding scale insulin as needed. 01/04 resume home glipizide 20 mg dose, continue to hold extra 10 mg glipizide and Victoza. Qualifiers: Qualified Codes: E11.65 - Type 2 diabetes mellitus with hyperglycemia (7) Chronic kidney disease Status: Chronic Assessment & Plan: Stable since 2011, monitor. 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 (10) DVT prophylaxis Status: Acute Assessment & Plan: On therapeutic apixaban Clinical Quality Measures DVT/VTE Risk/Contraindication: Risk Factor Score Per Nursin RFS Level Per Nursing on Admit: 4+=Very High LETTY SYED MD January 04, 2018 11:18 am
[2018-01-04] MEDS: ACETAMINOPHEN 500 MG TAB (TYLENOL) PO PRN (11:47)
--- NOTE | 2018-01-04 12:49 | Occupational Ther Daily Note ---
OT Current Status-Daily Note Subjective Pt alert, lying in bed. Pt tells LISA how he fell and about his back pain. Pt agrees to therapy. Mental Status/Objective Patient Orientation: Person, Place, Time, Situation Functional [place] Measure 0=Not Assessed/NA 4=Minimal Assistance 1=Total Assistance 5=Supervision or Setup 2=Maximal Assistance 6=Modified [place] 3=Moderate Assistance 7=Complete [place] Other Treatment Pt able to complete UE exercises against gravity. Pt takes increased time to complete exercises. Pt tolerated exercises well. Good UE ROM. PT took over care of pt. All needs met in room. OT Short Term Goals Short Term Goals 1=Demonstrate adherence to instructed precautions during ADL tasks. 2=Patient will verbalize/demonstrate understanding of assistive devices/ modifications for ADL. 3=Patient will improve strength/tolerance for activity to enable patient to perform ADL's. OT Technical Support Director Goals Technical Support Director Goals Time Frame: Jan 24, 2018 Eating (FIM): 7 Grooming(FIM): 6 Bathing(FIM): 5 Upper Body Dressing(FIM): 6 Lower Body Dressing(FIM): 6 Toileting(FIM): 6 Toilet/Commode Transfer(FIM): 6 Shower Transfer(FIM): 6 Additional Goals: 1-Demonstrate ADL Tasks, 2-Verbalize Understanding, 3- ImproveStrength/Ct 1=Demonstrate adherence to instructed precautions during ADL tasks. 2=Patient will verbalize/demonstrate understanding of assistive devices/ modifications for ADL. 3=Patient will improve strength/tolerance for activity to enable patient to perform ADL's. OT Education/Plan Discharge Recommendations Plan/Recommendations: Continue POC Treatment Plan/Plan of Care Patient would benefit from OT for education, treatment and training to promote independence in ADL's, mobility, safety and/or upper extremity function for ADL' s. Plan of Care: ADL Retraining, Functional Mobility, UE Funct Exercise/Act, UE Neuromus Re-Ed/Coord Treatment Duration: Jan 25, 2018 Frequency: 5 times per week Estimated Hrs Per Day: .5 hour per day Agreement: Yes Rehab Potential: Fair Time/GCodes Start Time: 12:25 Stop Time: 12:40 Total Time Billed (hr/min): 15 Billed Treatment Time 1 visit-EX 1 (15 min) PT/OT Therapy GCodes Therapy Functional Limitation: Physical Therapy Test(s)/Tool used to determine: FIM Functional Limitation-Current Charge Code: MOBCUR Modifier: CL Functional Limitation-Goal Charge Code: MOBGOAL Modifier: VINAYAK LEWIS January 04, 2018 12:49
--- NOTE | 2018-01-04 13:53 | Physical Therapy Daily Note ---
PT Daily Note-Current Subjective Patient begins session with an inappropriate joke. Pain Numeric Pain Scale: 3 Location: Right, Lower Location Body Site: Back Pain Description: Ache, Acute Mental Status Patient Orientation: Normal For Age Transfers Functional [place] Measure 0=Not Assessed/NA 4=Minimal Assistance 1=Total Assistance 5=Supervision or Setup 2=Maximal Assistance 6=Modified [place] 3=Moderate Assistance 7=Complete IndependenceIRFPAI Quality Coding Scale 6 Independent with activity with or without an assistive device 5 Patient requires set up or clean up by helper. Patient completes activity by themselves 4 Supervision or touching assist (CGA). [place] provide cues , steadying assist 3 The helper provides less than half the effort to complete the activity 2 The helper provides more than half the effort to complete the activity 1 Dependent. The helper does all the effort to complete an activity 7 Patient refused to complete or attempt activity 9 The patient did not perform the activity before the current illness or injury 88 Not attempted due to Medical conditions or safety concerns Transfers (B, C, W/C) (FIM): 3 Scootin Rollin Supine to/from Sit: 3 Sit to/from Stand: 4 Bed to/from Chair: 4 Patient appears to self limit and resists all movement assisted by PT Weight Bearing Right Lower Extremity: Right Full Weight Bearing Left Lower Extremity: Left Full Weight Bearing Gait Training Gait (FIM): 1 Distance (FIM): 1=up to 49 ft Distance: 8' Gait Level of Assist: 4 Gait Persons Needed: 1 Gait Assistive Device: FWW trunk flexed posture Exercises Supine Ex: Ankle pumps, Quad Set, Heel Slides, Straight leg raise Supine Reps: 15 (AAROM bilaterally) Assessment Patient reported he spends majority of time in his lift chair at home and is no active at home. Patient requires time to complete tasks by self due to inactivity. Patient demands PT move him due to LBP. Patient is very resistive with all movement and appears to self limit. PT Narcotics Agent Goals Chcf Goals PT Chcf Goals Time Frame: Jan 11, 2018 Transfers (B,C,W/C) (FIM): 6 Gait (FIM): 6 Gait distance (FIM): 3=150 ft Gait Level of Assist: 6 Gait Assistive Device: FWW PT Plan Treatment/Plan Treatment Plan: Continue Plan of Care Treatment Plan: Bed Mobility, Education, Functional Activity Ct, Functional Strength, Gait, Safety, Therapeutic Exercise, Transfers Treatment Duration: Jan 11, 2018 Frequency: 6 times per week Estimated Hrs Per Day: .25 hour per day Patient and/or Family Agrees t: Yes Time/GCodes Time In: 1240 Time Out: 1312 Total Billed Treatment Time: 32 Total Billed Treatment 1 visit FA 20 min EX 12 min PT/OT Therapy GCodes Therapy Functional Limitation: Physical Therapy Test(s)/Tool used to determine: FIM Functional Limitation-Current Charge Code: MOBCUR Modifier: CL Functional Limitation-Goal Charge Code: MOBGOAL Modifier: MARIA INES ALBRECHT PT January 04, 2018 13:53
[2018-01-04 14:25] VITALS: BP 164/74
[2018-01-04 16:15] VITALS: BP 155/73
--- NOTE | 2018-01-04 18:43 | Diagnostic Imaging Report ---
PROCEDURE: MRI lumbar spine. TECHNIQUE: Multiplanar, multisequence MRI of the lumbar spine was performed without contrast. INDICATION: Back pain. There are no previous MRI lumbar spine examinations available for comparison. The plain film examination of the lumbar spine performed on 01/03/18 noted multilevel severe degenerative disc disease throughout the lumbar spine. FINDINGS: This exam is incomplete as the patient could not tolerate the entire procedure. Only the T2 and T2 fat-saturated sagittal series were performed. As noted on the plain film exam, there is narrowing of the disc spaces at every level of the lumbar spine. There does appear to be spinal stenosis at the L1-L2 level due to a combination of degenerative disc, ligamentous and bony disease. The AP diameter of the thecal sac is narrowed to approximately 6.3 mm. There is also mild narrowing of the neuroforamen bilaterally at this level. At L2-L3, there is also a disc bulge centrally. The AP diameter of the thecal sac is narrowed to 8.4 mm. There is no significant neuroforaminal narrowing at this level. At the L3-L4 level, there is a broad disc bulge centrally. The AP diameter is narrowed to 7.6 mm. There is mild neuroforaminal narrowing bilaterally at this level. At the L4-L5 level, there is no evidence for disc bulge centrally. The AP diameter of the thecal sac measures 10.9 mm. There does seem to be mild narrowing of the neuroforamen bilaterally at this level, however. At L5-S1, the AP diameter of the thecal sac measures 12.4 mm. There does not appear to be any significant neuroforaminal narrowing on the right but there is at least moderate narrowing of the neuroforamen on the right. There is no abnormal signal arising from the osseous structures to suggest bone edema or a fracture. There is a 3.3 cm hemangioma within the vertebral body of L3. There is no sign of a cord lesion. There is no obvious paraspinal mass. IMPRESSION: 1. There is degenerative disc, ligamentous and bony disease throughout the lumbar spine. The L1-L2 level is the most severely affected as there is fairly severe central stenosis at this level. There is also central stenosis at L2-L3 and L3-L4. 2. There is no sign of an acute bony abnormality. 3. This exam is incomplete as the patient could not tolerate the entire study. Dictated by: Dictated on workstation # [id number]
[2018-01-04 19:20] VITALS: BP 149/67
[2018-01-04] MEDS: SIMvastatin 20 MG (ZOCOR) TAB PO SCH (20:49)
[2018-01-05 01:07] VITALS: BP 178/85
[2018-01-05] MEDS: HYDROcodone/APAP 5 MG/325 MG (LORTAB) TAB PO PRN ×2 (03:33→20:39)
[2018-01-05 04:10] VITALS: BP 174/78
[2018-01-05] MEDS: inSUlin ASPART (NovoLOG) 1 UNIT/0.01 ML (CHARGE PER UNIT) SC SCH ×4 (06:26→21:23)
[2018-01-05] MEDS: glipiZIDE 5 MG (GLUCOTROL) TAB PO SCH (06:26)
[2018-01-05] MEDS: metFORMIN 500 MG (GLUCOPHAGE) TAB PO SCH ×2 (06:26→17:19)
[2018-01-05 08:38] VITALS: BP 165/76
--- NOTE | 2018-01-05 08:55 | Physical Therapy Daily Note ---
PT Daily Note-Current Subjective Patient states, "I don't know why you make me to all this. I sit in my chair and watch TV at home and that's what I want to do." Pain Numeric Pain Scale: 0-No Pain Location: No Pain Reported Mental Status Patient Orientation: Person, Time, Situation Transfers Functional [place] Measure 0=Not Assessed/NA 4=Minimal Assistance 1=Total Assistance 5=Supervision or Setup 2=Maximal Assistance 6=Modified [place] 3=Moderate Assistance 7=Complete IndependenceIRFPAI Quality Coding Scale 6 Independent with activity with or without an assistive device 5 Patient requires set up or clean up by helper. Patient completes activity by themselves 4 Supervision or touching assist (CGA). [place] provide cues , steadying assist 3 The helper provides less than half the effort to complete the activity 2 The helper provides more than half the effort to complete the activity 1 Dependent. The helper does all the effort to complete an activity 7 Patient refused to complete or attempt activity 9 The patient did not perform the activity before the current illness or injury 88 Not attempted due to Medical conditions or safety concerns Transfers (B, C, W/C) (FIM): 4 Scootin Rollin Supine to/from Sit: 5 Sit to/from Stand: 4 Patient appears to use only his arms for bed mobility and is unable to utilize his core. Noted atrophy bilateral LE's due to inactivity PLOF. Weight Bearing Right Lower Extremity: Right Full Weight Bearing Left Lower Extremity: Left Full Weight Bearing Gait Training Gait (FIM): 1 Distance (FIM): 1=up to 49 ft Distance: 45' Gait Level of Assist: 4 Gait Persons Needed: 1 Gait Assistive Device: FWW severe trunk flexed posture in FWW with shuffle gait pattern. Exercises Supine Ex: Ankle pumps, Quad Set, Heel Slides, Straight leg raise Supine Reps: 15 Assessment Patient incontinent urine x 3 during treatment with patient stating, "If you don 't put that urinal between my legs then I'm just going to pee on the floor." RN notified. From a PT standpoint, patient will require extended care facility vs.[facility] to regain mobility. PT Assisted Goals Assisted Goals PT Assisted Goals Time Frame: Jan 11, 2018 Transfers (B,C,W/C) (FIM): 6 Gait (FIM): 6 Gait distance (FIM): 3=150 ft Gait Level of Assist: 6 Gait Assistive Device: FWW PT Plan Treatment/Plan Treatment Plan: Continue Plan of Care Treatment Plan: Bed Mobility, Education, Functional Activity Ct, Functional Strength, Gait, Safety, Therapeutic Exercise, Transfers Treatment Duration: Jan 11, 2018 Frequency: 6 times per week Estimated Hrs Per Day: .25 hour per day Patient and/or Family Agrees t: Yes Time/GCodes Time In: 818 Time Out: 845 Total Billed Treatment Time: 27 Total Billed Treatment 1 visit FA 15 min EX 12 min PT/OT Therapy GCodes Therapy Functional Limitation: Physical Therapy Test(s)/Tool used to determine: FIM Functional Limitation-Current Charge Code: MOBCUR Modifier: CL Functional Limitation-Goal Charge Code: MOBGOAL Modifier: CI MARIA INES EGAN PT January 05, 2018 08:55
[2018-01-05] MEDS: HYDROCHLOROTHIAZIDE 25 MG (HCTZ) TAB PO SCH (09:33)
[2018-01-05] MEDS: APIXABAN 5 MG (ELIQUIS) TABLET PO SCH ×2 (09:33→20:38)
[2018-01-05] MEDS: ENALAPRIL 10 MG (VASOTEC) TAB PO SCH (09:33)
[2018-01-05] MEDS: ASPIRIN E.C. 81 MG (ECOTRIN) TAB PO SCH ×2 (09:33→20:38)
[2018-01-05] MEDS: cefTRIAXone 1 GM/NS 50 ML IVPB IV SCH ×2 (09:33)
[2018-01-05 12:49] VITALS: BP 166/78
--- NOTE | 2018-01-05 13:52 | Progress Note (SOAP) ---
Subjective Subjective/Events-last exam Continues to have difficulty with pain and mobility. At time of my exam, he was walking with walker from bathroom to chair and was able to do so without assistance, but very slowly. Review of Systems Date Seen by Provider: January 05, 2018 Time Seen by Provider: 10:55 Objective Exam Last Set of Vital Signs Vital Signs Date Time Temp Pulse Resp B/P (MAP) Pulse Ox O2 Delivery O2 Flow Rate FiO2 01/05/18 12:49 97.5 80 18 166/78 (107) 97 Room Air Capillary Refill : Less Than 3 Seconds I&O Intake and Output 01/05/18 00:00 Intake Total 1675 ml Output Total 2900 ml Balance -1225 ml Intake Oral 1675 ml Output Urine Total 2900 ml General: Alert Lungs: Clear to Auscultation, Normal Air Movement Heart: Regular Rate, No Murmurs Psych/Mental Status: Mental Status NL Results/Procedures Lab Laboratory Tests 01/04/18 16:15: Glucometer 184H 01/04/18 20:48: Glucometer 164H 01/05/18 05:24: Glucometer 206H 01/05/18 11:15: Glucometer 244H Microbiology 12/31/17 Urine Culture - Final, Complete Aerococcus urinae See Report Radiology CXR with stable elevated right hemidiaphragm Knee x-rays with tricompartmental osteoarthritis, no acute changes Assessment/Plan Assessment/Plan (1) UTI (urinary tract infection) Status: Acute Assessment & Plan: Ceftriaxone started presumptively, awaiting culture. No evidence of sepsis. 01/02- culture with aerococcus, should be sensitive to PCN Qualifiers: Qualified Codes: N30.00 - Acute cystitis without hematuria (2) Low back pain Status: Acute Assessment & Plan: Xray with degenerative changes and scoliosis. Given weakness and urinary incontinence, MRI ordered, machine is currently down, hopefully will be obtained this pm (01/04) and if unremarkable, will discuss further with medical transcriptionist whether he can go to rehab or not. 01/05 MRI with fairly significant lumbar stenosis, however given the length of time of his issues- up to last 2-3 months with urinary incontinence, do not suspect emergent situation. Would recommend seeing spine surgery for recommendations as soon as possible, however. Mobility is not adequate to go home or to tolerate therapy for inpatient rehab. Unable to place in [facility] or group home nursing at this time due to weekend/holiday and need for support services. Continue PT. Qualifiers: Qualified Codes: M54.5 - Low back pain (3) Fall Status: Acute Assessment & Plan: Combination likely of arthritis, deconditioning and infection. PT to eval. Likely will need home PT at least on d/c. Qualifies for inpatient rehab, waiting on insurance approval. 01/04 denied at this time due to concern about back pain- work-up in process. Qualifiers: Qualified Codes: W19.XXXA - Unspecified fall, initial encounter (4) Hypertension Status: Chronic Assessment & Plan: Resume home medication 01/04 elevated in spite of home enalapril, add HCTZ Qualifiers: Qualified Codes: I10 - Essential (primary) hypertension (5) Hyperlipidemia Status: Chronic Assessment & Plan: Resume home pravastatin, consider changing to more potent statin (6) Diabetes mellitus with hyperglycemia Status: Chronic Assessment & Plan: Hold home glipizide and Victoza, continue metformin. Diabetic diet and sliding scale insulin as needed. 01/04 resume home glipizide 20 mg dose, continue to hold extra 10 mg glipizide and Victoza. 01/05 persistent hyperglycemia, resume second dose of glipizide. Qualifiers: Qualified Codes: E11.65 - Type 2 diabetes mellitus with hyperglycemia (7) Chronic kidney disease Status: Chronic Assessment & Plan: Stable since 2011, monitor. 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
[2018-01-05 16:13] VITALS: BP 176/91
--- NOTE | 2018-01-05 19:44 | Consultation ---
History of Present Illness History of Present Illness Patient Consulted On(katina/time) 01/05/18 19:39 Date Seen by Provider: January 05, 2018 Time Seen by Provider: 19:40 Reason for Visit: weakness both legs with low back pain History of Present Illness legs gave out at home in his bathroom on 12/31/17. Transported to hospital via ambulance Allergies and Home Medications Allergies Coded Allergies: No Known Drug Allergies (Unverified , 08/08/10) Home Medications Apixaban 5 Mg Tablet, 5 MG PO BID, (Reported) Aspirin 81 Mg Tablet.dr, 81 MG PO BID, (Reported) Enalapril Maleate 20 Mg Tablet, 20 MG PO DAILY, (Reported) Glipizide 10 Mg Tablet, 10 MG PO HS, (Reported) Glipizide 10 Mg Tablet, 20 MG PO DAILY, (Reported) TAKES 2 (10MG) TABLETS Liraglutide 0.6 Mg/0.1 Ml Pen.injctr, 1.8 MG SC DAILY, (Reported) Metformin HCl 1,000 Mg Tablet, 1,000 MG PO BID, (Reported) Pravastatin Sodium 40 Mg Tablet, 40 MG PO DAILY, (Reported) Patient Home Medication List Home Medication List Reviewed: Yes Past [id number]-Vbrmui Hx Patient Social History Alcohol Use: Denies Use Alcohol Beverage of Choice: Beer, Whiskey, Wine Recreational Drug Use: No Smoking Status: Former Smoker Type Used: Cigarettes Former Smoker, Quit: January 01, 2008 Recent Foreign Travel: No Contact w/Someone Who Travel: No Recent Infectious Disease Expo: No Recent Hopitalizations: No Immunizations Up To Date Date of Pneumonia Vaccine: May 04, 2017 Date of Influenza Vaccine: May 13, 2011 Seasonal Allergies Seasonal Allergies: No Past Medical History Surgeries: Yes (LEFT KNEE SCOPES X2, FINGER, GALLBLADDER,) Respiratory: No Currently Using CPAP: No Currently Using BIPAP: No Cardiac: Yes Neurological: No Reproductive Disorders: No Sexually Transmitted Disease: No Genitourinary: Yes UTI-Chronic Gastrointestinal: No Musculoskeletal: Yes (uses cane) Endocrine: Yes HEENT: Yes (wears glasses) Cancer: No Psychosocial: No Integumentary: No Blood Disorders: No Family Medical History Coronary thrombosis 19 FATHER FH: ovarian cancer 19 MOTHER Myocardial infarction 19 FATHER Heart Disease Physical Exam-General Problems Physical Exam Vital Signs Vital Signs - First Documented 5/21/18 5/21/18 15:43 19:13 Temp 97.5 Pulse 95 Resp 18 B/P (MAP) 190/85 (120) Pulse Ox 95 O2 Delivery Room Air Capillary Refill : Less Than 3 Seconds General Appearance: no apparent distress HEENT: PERRL/EOMI Neck: non-tender Respiratory: chest non-tender Cardiovascular: regular rate, rhythm Peripheral Pulses: 1+ Dorsalis Pedis (R), 1+ Left Dors-Pedis (L) Gastrointestinal: non tender Rectal: deferred Extremities: pedal edema Neurologic/Psychiatric: no motor/sensory deficits Reflexes: 2+ Knee (R), 2+ Knee (L); 1+ Ankle (R), 1+ Ankle (L) Skin: warm/dry Assessment/Plan Assessment/Plan Admission Diagnosis/Plan Low Back Pain Lumbar Spinal Stenosis Lower Extremity Weakness Continue Physical Therapy Reason for Inpatient Admission: unable to walk Clinical Quality Measures DVT/VTE Risk/Contraindication: Risk Factor Score Per Nursin RFS Level Per Nursing on Admit: 4+=Very High DAVID GOODMAN DO January 05, 2018 7:44 pm
[2018-01-05] MEDS: glipiZIDE XL 10 MG (GLUCOTROL XL) TAB PO SCH (20:39)
[2018-01-05] MEDS: SIMvastatin 20 MG (ZOCOR) TAB PO SCH (20:40)
--- NOTE | 2018-01-05 22:21 | CONSULTATION REPORT ---
DATE OF SERVICE: ORTHOPHEDIC CONSULTATION IMPRESSION: 1. Low back pain. 2. Lumbar spinal stenosis. 3. Bilateral lower extremity weakness. RECOMMENDATIONS: Continue formal physical therapy. HISTORY AND PHYSICAL EXAM: The patient is a 77-year-old male who was seen at the request of his primary care physician for an evaluation of his lumbar spine. The patient states that he was at home. He was in his bathroom. He states he was attempting to arise from a seated position and his legs gave way on him. He had a grab bar. He had to slowly lower himself to the floor, striking both knees and that he was unable to ride himself. He laid on the floor for approximately an hour. His was outside. She returned to the house. An ambulance was called. The patient was transported to the hospital. The patient has been receiving formal physical therapy. He has difficulty ambulating. He states that he had minimal ambulation prior to this hospital admission, although he was able to move from the bathroom to his living room and so forth. He has had some urinary frequency. He states that he had this at home prior to this hospitalization. He denies any numbness or tingling in his lower extremities. Denies any numbness in the perineal area. On exam, the patient demonstrates an abrasion in the prepatellar tendon area of both the left and right knee. He has a Band-Aid covering the right side. He has some diffuse swelling in both lower extremities. He has no palpable tenderness in either the right or left calf. The patient has 5/5 strength on resisted dorsiflexion of his right and left ankle. He has 5/5 strength on resisted dorsiflexion of his great toe bilaterally. The patient's deep tendon reflexes are 2+ at the right and left knee. He has 1+ deep tendon reflexes at the left and right ankle. The patient has palpable tenderness in the lower lumbar spine, more so on the right side than the left side. Dorsalis pedis pulses at both the right and left foot. LABORATORY DATA: The patient's MRI evaluation was reviewed. The patient has multilevel degenerative disk disease. The patient has a degenerative disk bulge at L1-L2. He has the same thing at L2-L3 and L4-L5. The patient has a 3.2 cm hemangioma at the L4 vertebral body. This is not compromising the vertebral body itself. The patient has stenosis present at L1-L2, at L2-L3 and L3-L4. The thecal sac is narrowed in the AP diameter to 6.3 mm at L1-L2; he has an 8.4 mm narrowing at L2-L3 and a 7.6 narrowing at L3-L4. No significant neuroforaminal narrowing is noted. The exam was noted to be incomplete based on the patient's inability to complete the entire scan. The patient is able to walk. He is doing this very slowly. He has been evaluated for the possibility of admission to acute rehabilitation and they did not feel that he would tolerate 3 hours of physical therapy. I have encouraged the patient to be more aggressive with his ambulation advising the patient that if he is not able to ambulate more independently on his own that he would have difficulty returning to home. He does not have any type of a cauda equina syndrome. He does not have severe disk bulging compromising the vertebral bodies. I would continue with the aggressive encouragement by the physical therapist for ambulation. Job ID: [id number] DocumentID: [id number] Dictated Date: 01/05/2018 19:52:51 [employer] Faculty Member Date: 01/05/2018 22:21:21 Dictated By: DAVID GOODMAN DO
[2018-01-05] MEDS: ANTACID SUSP 30 ML UDC (MYLANTA) PO PRN (23:01)
[2018-01-05 23:19] VITALS: BP 185/83
[2018-01-06 00:31] VITALS: BP 191/90
[2018-01-06] MEDS: inSUlin ASPART (NovoLOG) 1 UNIT/0.01 ML (CHARGE PER UNIT) SC SCH ×4 (06:27→20:24)
[2018-01-06] MEDS: metFORMIN 500 MG (GLUCOPHAGE) TAB PO SCH ×2 (06:27→16:35)
[2018-01-06] MEDS: glipiZIDE 5 MG (GLUCOTROL) TAB PO SCH (06:27)
[2018-01-06 08:00] VITALS: BP 190/95
--- NOTE | 2018-01-06 08:05 | Progress Note (SOAP) ---
Subjective Subjective/Events-last exam Afebrile, no acute events. Review of Systems Date Seen by Provider: January 06, 2018 Time Seen by Provider: 07:48 Objective Exam Last Set of Vital Signs Vital Signs Date Time Temp Pulse Resp B/P (MAP) Pulse Ox O2 Delivery O2 Flow Rate FiO2 01/06/18 00:31 98.0 84 18 191/90 (123) 96 Room Air Capillary Refill : Less Than 3 Seconds I&O Intake and Output 01/06/18 00:00 Intake Total 1670 ml Output Total 2425 ml Balance -755 ml Intake Oral 1670 ml Output Urine Total 2425 ml # Voids 2 General: Alert, No Acute Distress Lungs: Clear to Auscultation, Normal Air Movement Heart: Regular Rate, No Murmurs Neuro: Normal Speech Psych/Mental Status: Mental Status NL Results/Procedures Lab Laboratory Tests 01/05/18 11:15: Glucometer 244H 01/05/18 15:35: Glucometer 190H 01/05/18 21:01: Glucometer 165H 01/06/18 05:19: Glucometer 246H Microbiology 12/31/17 Urine Culture - Final, Complete Aerococcus urinae See Report Radiology CXR with stable elevated right hemidiaphragm Knee x-rays with tricompartmental osteoarthritis, no acute changes 01/04 MRI lumbar spine: "IMPRESSION: 1. There is degenerative disc, ligamentous and bony disease throughout the lumbar spine. The L1-L2 level is the most severely affected as there is fairly severe central stenosis at this level. There is also central stenosis at L2-L3 and L3-L4. 2. There is no sign of an acute bony abnormality. 3. This exam is incomplete as the patient could not tolerate the entire study. " Assessment/Plan Assessment/Plan (1) UTI (urinary tract infection) Status: Acute Assessment & Plan: Ceftriaxone started presumptively, awaiting culture. No evidence of sepsis. 01/02- culture with aerococcus, should be sensitive to PCN, complete seven days of ceftriaxone Qualifiers: Qualified Codes: N30.00 - Acute cystitis without hematuria (2) Low back pain Status: Acute Assessment & Plan: Xray with degenerative changes and scoliosis. Given weakness and urinary incontinence, MRI ordered, machine is currently down, hopefully will be obtained this pm (01/04) and if unremarkable, will discuss further with medical intern whether he can go to rehab or not. 01/05 MRI with fairly significant lumbar stenosis, however given the length of time of his issues- up to last 2-3 months with urinary incontinence, do not suspect emergent situation. Would recommend seeing spine surgery for recommendations as soon as possible, however. Mobility is not adequate to go home or to tolerate therapy for inpatient rehab. Unable to place in residential or intermediate nursing at this time due to weekend/holiday and need for support services. Continue PT. Qualifiers: Qualified Codes: M54.5 - Low back pain (3) Fall Status: Acute Assessment & Plan: Combination likely of arthritis, deconditioning and infection. PT to eval. Likely will need home PT at least on d/c. Qualifies for inpatient rehab, waiting on insurance approval. 01/04 denied at this time due to concern about back pain and inability to tolerate enough therapy. Qualifiers: Qualified Codes: W19.XXXA - Unspecified fall, initial encounter (4) Hypertension Status: Chronic Assessment & Plan: Resume home medication 01/04 elevated in spite of home enalapril, add HCTZ 01/06 still markedly high, add amlodipine Qualifiers: Qualified Codes: I10 - Essential (primary) hypertension (5) Hyperlipidemia Status: Chronic Assessment & Plan: Resume home pravastatin, consider changing to more potent statin (6) Diabetes mellitus with hyperglycemia Status: Chronic Assessment & Plan: Hold home glipizide and Victoza, continue metformin. Diabetic diet and sliding scale insulin as needed. 01/04 resume home glipizide 20 mg dose, continue to hold extra 10 mg glipizide and Victoza. 01/05 persistent hyperglycemia, resume second dose of glipizide. Qualifiers: Qualified Codes: E11.65 - Type 2 diabetes mellitus with hyperglycemia (7) Chronic kidney disease Status: Chronic Assessment & Plan: Stable since 2011, monitor. 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
[2018-01-06] MEDS: cefTRIAXone 1 GM/NS 50 ML IVPB IV SCH ×2 (08:20)
[2018-01-06] MEDS: ANTACID SUSP 30 ML UDC (MYLANTA) PO PRN (08:22)
[2018-01-06] MEDS: HYDROcodone/APAP 5 MG/325 MG (LORTAB) TAB PO PRN ×2 (08:23→16:35)
[2018-01-06] MEDS: amLODIPine 5 MG (NORVASC) TAB PO SCH (08:23)
[2018-01-06] MEDS: ASPIRIN E.C. 81 MG (ECOTRIN) TAB PO SCH ×2 (08:23→20:24)
[2018-01-06] MEDS: ENALAPRIL 10 MG (VASOTEC) TAB PO SCH (08:23)
[2018-01-06] MEDS: APIXABAN 5 MG (ELIQUIS) TABLET PO SCH ×2 (08:23→20:24)
[2018-01-06] MEDS: HYDROCHLOROTHIAZIDE 25 MG (HCTZ) TAB PO SCH (08:23)
[2018-01-06] MEDS: POLYETHYLENE GLYCOL 17 GM (MIRALAX) PACK PO SCH ×2 (11:31→20:24)
[2018-01-06 16:00] VITALS: BP 149/72
[2018-01-06] MEDS: glipiZIDE XL 10 MG (GLUCOTROL XL) TAB PO SCH (20:24)
[2018-01-06] MEDS: SIMvastatin 20 MG (ZOCOR) TAB PO SCH (20:24)
[2018-01-07 00:10] VITALS: BP 158/74
[2018-01-07] MEDS: HYDROcodone/APAP 5 MG/325 MG (LORTAB) TAB PO PRN ×3 (05:16→16:48)
[2018-01-07] MEDS: glipiZIDE 5 MG (GLUCOTROL) TAB PO SCH (05:36)
[2018-01-07] MEDS: inSUlin ASPART (NovoLOG) 1 UNIT/0.01 ML (CHARGE PER UNIT) SC SCH ×4 (05:37→21:17)
[2018-01-07] MEDS: metFORMIN 500 MG (GLUCOPHAGE) TAB PO SCH ×2 (05:37→16:49)
[2018-01-07 05:38] LABS: HEMOGLOBIN 13.3 G/DL (13.3-17.7); MEAN PLATELET VOLUME 10.7 FL (7.4-10.4); RED BLOOD COUNT 4.61 10^6/uL (4.35-5.85); WHITE BLOOD COUNT 10.5 10^3/uL (4.3-11.0)
[2018-01-07 05:52] LABS: CALCIUM 9.2 MG/DL (8.5-10.1); CREATININE SERUM 1.36 MG/DL (0.60-1.30); POTASSIUM 4.6 MMOL/L (3.6-5.0)
[2018-01-07 08:00] VITALS: BP 165/77
[2018-01-07] MEDS: ASPIRIN E.C. 81 MG (ECOTRIN) TAB PO SCH ×2 (09:00→20:50)
[2018-01-07] MEDS: APIXABAN 5 MG (ELIQUIS) TABLET PO SCH ×2 (09:00→20:50)
[2018-01-07] MEDS: ENALAPRIL 10 MG (VASOTEC) TAB PO SCH (09:00)
[2018-01-07] MEDS: amLODIPine 5 MG (NORVASC) TAB PO SCH (09:00)
[2018-01-07] MEDS: HYDROCHLOROTHIAZIDE 25 MG (HCTZ) TAB PO SCH (09:00)
--- NOTE | 2018-01-07 11:20 | Physical Therapy Daily Note ---
PT Daily Note-Current Subjective Pt in bed, agreeable to up to chair. No c/o pain. Mental Status Patient Orientation: Person, Place, Time, Situation Transfers Functional [place] Measure 0=Not Assessed/NA 4=Minimal Assistance 1=Total Assistance 5=Supervision or Setup 2=Maximal Assistance 6=Modified [place] 3=Moderate Assistance 7=Complete IndependenceIRFPAI Quality Coding Scale 6 Independent with activity with or without an assistive device 5 Patient requires set up or clean up by helper. Patient completes activity by themselves 4 Supervision or touching assist (CGA). [place] provide cues , steadying assist 3 The helper provides less than half the effort to complete the activity 2 The helper provides more than half the effort to complete the activity 1 Dependent. The helper does all the effort to complete an activity 7 Patient refused to complete or attempt activity 9 The patient did not perform the activity before the current illness or injury 88 Not attempted due to Medical conditions or safety concerns Supine to/from Sit: 3 Sit to/from Stand: 3 Weight Bearing Right Lower Extremity: Right Full Weight Bearing Left Lower Extremity: Left Full Weight Bearing Gait Training Gait (FIM): 1 Distance (FIM): 1=up to 49 ft Distance: 20 Gait Level of Assist: 4 Gait Persons Needed: 1 Gait Assistive Device: FWW Pt ambulates with slow, shuffling gait. Flexed posture with heavy reliance on UE. Pt able to step with (L) foot at times but drags foot at other times. Frequent skilled VCS to stay within base of walker. Treatments Gait, transfer training. Up in chair with all needs met. Assessment Current Status: Fair Progress Pt tolerated well. Precarious balance at times as Pt moves outside base of walker. PT Senior Care Goals Senior Care Goals PT Math [employer] Department Chair Goals Time Frame: Jan 11, 2018 Transfers (B,C,W/C) (FIM): 6 Gait (FIM): 6 Gait distance (FIM): 3=150 ft Gait Level of Assist: 6 Gait Assistive Device: FWW PT Plan Problem List Problem List: Activity Tolerance, Functional Strength, Safety, Balance, Gait, Transfer, Bed Mobility Treatment/Plan Treatment Plan: Continue Plan of Care Treatment Plan: Bed Mobility, Education, Functional Activity Ct, Functional Strength, Gait, Safety, Therapeutic Exercise, Transfers Treatment Duration: Jan 11, 2018 Frequency: 6 times per week Estimated Hrs Per Day: .25 hour per day Patient and/or Family Agrees t: Yes Safety Risks/Education Patient Education: Gait Training Teaching Recipient: Patient Teaching Methods: Discussion Response to Teaching: Verbalize Understanding, Reinforcement Needed Time/GCodes Time In: 1017 Time Out: 1040 Total Billed Treatment Time: 23 Total Billed Treatment 1, GT x 23' G Codes Necessary: No PT/OT Therapy GCodes Therapy Functional Limitation: Physical Therapy Test(s)/Tool used to determine: FIM Functional Limitation-Current Charge Code: MOBCUR Modifier: CL Functional Limitation-Goal Charge Code: MOBGOAL Modifier: JOHN ZHENG DPT January 07, 2018 11:20
--- NOTE | 2018-01-07 12:30 | Progress Note-Hospitalist ---
Subjective HPI/CC On Admission Date Seen by Provider: January 07, 2018 Time Seen by Provider: 11:15 Subjective/Events-last exam Patient doing about the same Cognitive deficiency noted Had a small bowel movement this morning that I will order more meds for that Wants his [id number] potassium he takes 2 twice a day reordered but I noted his potassium is 4.7 and it is not low enough to restart that home meds so I told the RN to tell him that Needs halfway placement Review of Systems Gastrointestinal: Constipation Musculoskeletal: back pain Objective Exam Vital Signs Vital Signs Date Time Temp Pulse Resp B/P (MAP) Pulse Ox O2 Delivery O2 Flow Rate FiO2 01/07/18 15:30 99.4 93 18 167/77 (107) 96 Room Air Capillary Refill : Less Than 3 Seconds General Appearance: No Apparent Distress, WD/WN, Chronically ill Respiratory: Lungs Clear, Normal Breath Sounds Cardiovascular: Regular Rate, Rhythm, No Edema Neurologic/Psychiatric: Alert, Depressed Affect, Other (poor recall) Results/Procedures Lab Laboratory Tests 01/07/18 05:30 Patient resulted labs reviewed. Assessment/Plan Assessment and Plan Assess & Plan/Chief Complaint Assessment per PCP Dr Garcia: (1) UTI (urinary tract infection) Status: Acute Assessment & Plan: Ceftriaxone started presumptively, awaiting culture. No evidence of sepsis. 01/02- culture with aerococcus, should be sensitive to PCN, complete seven days of ceftriaxone Qualifiers: Qualified Codes: N30.00 - Acute cystitis without hematuria (2) Low back pain Status: Acute Assessment & Plan: Xray with degenerative changes and scoliosis. Given weakness and urinary incontinence, MRI ordered, machine is currently down, hopefully will be obtained this pm (01/04) and if unremarkable, will discuss further with medical dir whether he can go to rehab or not. 01/05 MRI with fairly significant lumbar stenosis, however given the length of time of his issues- up to last 2-3 months with urinary incontinence, do not suspect emergent situation. Would recommend seeing spine surgery for recommendations as soon as possible, however. Mobility is not adequate to go home or to tolerate therapy for inpatient rehab. Unable to place in retirement or correction nursing at this time due to weekend/holiday and need for support services. Continue PT. Qualifiers: Qualified Codes: M54.5 - Low back pain (3) Fall Status: Acute Assessment & Plan: Combination likely of arthritis, deconditioning and infection. PT to eval. Likely will need home PT at least on d/c. Qualifies for inpatient rehab, waiting on insurance approval. 01/04 denied at this time due to concern about back pain and inability to tolerate enough therapy. Qualifiers: Qualified Codes: W19.XXXA - Unspecified fall, initial encounter (4) Hypertension Status: Chronic Assessment & Plan: Resume home medication 01/04 elevated in spite of home enalapril, add HCTZ 01/06 still markedly high, add amlodipine Qualifiers: Qualified Codes: I10 - Essential (primary) hypertension (5) Hyperlipidemia Status: Chronic Assessment & Plan: Resume home pravastatin, consider changing to more potent statin (6) Diabetes mellitus with hyperglycemia Status: Chronic Assessment & Plan: Hold home glipizide and Victoza, continue metformin. Diabetic diet and sliding scale insulin as needed. 01/04 resume home glipizide 20 mg dose, continue to hold extra 10 mg glipizide and Victoza. 01/05 persistent hyperglycemia, resume second dose of glipizide. Qualifiers: Qualified Codes: E11.65 - Type 2 diabetes mellitus with hyperglycemia (7) Chronic kidney disease Status: Chronic Assessment & Plan: Stable since 2011, monitor. 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 (10) DVT prophylaxis Status: Acute Assessment & Plan: On therapeutic apixaban Plan: Continue abx Monitor pain Monitor labs Needs NHP by tomorrow Diagnosis/Problems Diagnosis/Problems (1) UTI (urinary tract infection) Status: Acute (2) Falls frequently Status: Acute (3) Chronic low back pain Status: Chronic Qualifiers: Back pain laterality: unspecified Sciatica presence: unspecified whether sciatica present Qualified Codes: M54.5 - Low back pain; G89.29 - Other chronic pain (4) Cognitive decline Status: Chronic (5) Renal insufficiency Status: Chronic (6) Diabetes mellitus with hyperglycemia Status: Chronic Qualifiers: Diabetes mellitus type: type 2 Diabetes mellitus network systems integrator insulin use: without network systems integrator use Qualified Codes: E11.65 - Type 2 diabetes mellitus with hyperglycemia (7) History of DVT (deep vein thrombosis) Status: Chronic (8) Presence of IVC filter Status: Chronic (9) Hypertension Status: Chronic Qualifiers: Hypertension type: essential hypertension Qualified Codes: I10 - Essential (primary) hypertension (10) Hyperlipidemia Status: Chronic Qualifiers: Hyperlipidemia type: mixed hyperlipidemia Qualified Codes: E78.2 - Mixed hyperlipidemia Clinical Quality Measures DVT/VTE Risk/Contraindication: Risk Factor Score Per Nursin RFS Level Per Nursing on Admit: 4+=Very High CORA JACK DO January 07, 2018 12:30
--- NOTE | 2018-01-07 12:51 | Occupational Ther Daily Note ---
OT Current Status-Daily Note Subjective Pt. states that the pain in his back never goes away. However, does not give this therapist a pain number. Has had pain medication. Appearance Pt. up in chair. Agrees to work with OT. Mental Status/Objective Patient Orientation: Person Functional [place] Measure 0=Not Assessed/NA 4=Minimal Assistance 1=Total Assistance 5=Supervision or Setup 2=Maximal Assistance 6=Modified [place] 3=Moderate Assistance 7=Complete [place] ADL-Treatment Bathing (FIM): 3 (Pt. is able to wash arms, under arms, and chest. Requires max assist to wash guerda areas in stance.) Transfers (B, C, W/C) (FIM): 1 (Pt. requires max x 2 for sit-stand. Demonstrates significant difficulty to stand out of chair.) Other Treatment Pt. does not have street clothing present. States that he already had feet cleansed and lotioned, so would like to keep his socks on. All needs met up in chair and family came into room after OT done. Education OT Patient Education: Correct positioning, Modified ADL techniques, Progress toward Goal/Update tx plan, Purpose of tx/functional activities, Reviewed precautions, Rehab process, Transfer techniques Teaching Recipient: Patient Teaching Methods: Demonstration Response to Teaching: Verbalize Understanding, Return Demonstration OT Short Term Goals Short Term Goals 1=Demonstrate adherence to instructed precautions during ADL tasks. 2=Patient will verbalize/demonstrate understanding of assistive devices/ modifications for ADL. 3=Patient will improve strength/tolerance for activity to enable patient to perform ADL's. OT [employer] Supervisor Goals Prison Goals Time Frame: Jan 24, 2018 Eating (FIM): 7 Grooming(FIM): 6 Bathing(FIM): 5 Upper Body Dressing(FIM): 6 Lower Body Dressing(FIM): 6 Toileting(FIM): 6 Toilet/Commode Transfer(FIM): 6 Shower Transfer(FIM): 6 Additional Goals: 1-Demonstrate ADL Tasks, 2-Verbalize Understanding, 3- ImproveStrength/Ct 1=Demonstrate adherence to instructed precautions during ADL tasks. 2=Patient will verbalize/demonstrate understanding of assistive devices/ modifications for ADL. 3=Patient will improve strength/tolerance for activity to enable patient to perform ADL's. OT Education/Plan Problem List/Assessment Assessment: Decreased Activ Tolerance, Decreased UE Strength, Dependent Transfers, Impaired Bed Mobility, Impaired Funct Balance, Impaired I ADL's, Impaired Self-Care Skills Discharge Recommendations Plan/Recommendations: Continue POC Therapy D/C Recommendations: 24 hr Supervision Treatment Plan/Plan of Care Treatment,Training & Education: Yes Patient would benefit from OT for education, treatment and training to promote independence in ADL's, mobility, safety and/or upper extremity function for ADL' s. Plan of Care: ADL Retraining, Functional Mobility, UE Funct Exercise/Act, UE Neuromus Re-Ed/Coord Treatment Duration: Jan 25, 2018 Frequency: 5 times per week Estimated Hrs Per Day: .25 hour per day Agreement: Yes Rehab Potential: Fair Time/GCodes Start Time: 11:50 Stop Time: 12:05 Total Time Billed (hr/min): 15 Billed Treatment Time 1, ADL x 1 PT/OT Therapy GCodes Therapy Functional Limitation: Physical Therapy Test(s)/Tool used to determine: FIM Functional Limitation-Current Charge Code: MOBCUR Modifier: CL Functional Limitation-Goal Charge Code: MOBGOAL Modifier: DANIELLE LANIER OT January 07, 2018 12:51
[2018-01-07 15:30] VITALS: BP 167/77
[2018-01-07] MEDS: glipiZIDE XL 10 MG (GLUCOTROL XL) TAB PO SCH (20:49)
[2018-01-07] MEDS: SIMvastatin 20 MG (ZOCOR) TAB PO SCH (20:50)
[2018-01-07] MEDS: POLYETHYLENE GLYCOL 17 GM (MIRALAX) PACK PO SCH ×2 (20:51)
[2018-01-07] MEDS: LACTULOSE SYRUP 10GM/15ML (ENULOSE) 30ML UDC PO SCH (20:51)
[2018-01-08] VITALS: BP 173/76
[2018-01-08] MEDS: HYDROcodone/APAP 5 MG/325 MG (LORTAB) TAB PO PRN ×3 (05:27→20:54)
[2018-01-08] MEDS: inSUlin ASPART (NovoLOG) 1 UNIT/0.01 ML (CHARGE PER UNIT) SC SCH ×4 (05:31→21:00)
[2018-01-08] MEDS: metFORMIN 500 MG (GLUCOPHAGE) TAB PO SCH ×2 (05:31→17:34)
[2018-01-08] MEDS: glipiZIDE 5 MG (GLUCOTROL) TAB PO SCH (05:31)
[2018-01-08 06:30] LABS: BASOPHILS % (AUTO) 0 % (0-10); EOSINOPHILS # (AUTO) 0.5 10^3/uL (0.0-0.3); EOSINOPHILS % (AUTO) 5 % (0-10); HEMATOCRIT 36 % (40-54); HEMOGLOBIN 12.6 G/DL (13.3-17.7); LYMPHOCYTES # (AUTO) 1.2 X 10^3 (1.0-4.0); LYMPHOCYTES % (AUTO) 12 % (12-44); MEAN CORPUSCULAR HEMOGLOBIN 29 PG (25-34); MEAN CORPUSCULAR HGB CONC 35 G/DL (32-36); MEAN CORPUSCULAR VOLUME 84 FL (80-99); MEAN PLATELET VOLUME 10.7 FL (7.4-10.4); MONOCYTES # (AUTO) 1.2 X 10^3 (0.0-1.0); MONOCYTES % (AUTO) 11 % (0-12); NEUTROPHILS # (AUTO) 7.4 X 10^3 (1.8-7.8); NEUTROPHILS % (AUTO) 72 % (42-75); PLATELET COUNT 220 10^3/uL (130-400); RED CELL DISTRIBUTION WIDTH 12.7 % (10.0-14.5); WHITE BLOOD COUNT 10.3 10^3/uL (4.3-11.0)
[2018-01-08 07:16] LABS: ALBUMIN 3.4 GM/DL (3.2-4.5); BILIRUBIN,TOTAL 0.4 MG/DL (0.1-1.0); CALCIUM 8.9 MG/DL (8.5-10.1); CREATININE SERUM 1.37 MG/DL (0.60-1.30); POTASSIUM 4.3 MMOL/L (3.6-5.0); TOTAL PROTEIN 6.2 GM/DL (6.4-8.2)
[2018-01-08 07:59] VITALS: BP 137/71
[2018-01-08] MEDS: amLODIPine 5 MG (NORVASC) TAB PO SCH (08:22)
[2018-01-08] MEDS: APIXABAN 5 MG (ELIQUIS) TABLET PO SCH ×2 (08:22→21:00)
[2018-01-08] MEDS: ENALAPRIL 10 MG (VASOTEC) TAB PO SCH (08:22)
[2018-01-08] MEDS: ASPIRIN E.C. 81 MG (ECOTRIN) TAB PO SCH ×2 (08:22→20:54)
[2018-01-08] MEDS: HYDROCHLOROTHIAZIDE 25 MG (HCTZ) TAB PO SCH (08:22)
[2018-01-08] MEDS: LACTULOSE SYRUP 10GM/15ML (ENULOSE) 30ML UDC PO SCH ×2 (08:23→21:03)
[2018-01-08] MEDS: POLYETHYLENE GLYCOL 17 GM (MIRALAX) PACK PO SCH ×3 (08:23→21:02)
--- NOTE | 2018-01-08 10:23 | Progress Note-Hospitalist ---
Subjective HPI/CC On Admission Date Seen by Provider: January 08, 2018 Time Seen by Provider: 09:00 Subjective/Events-last exam Patient doing about the same Bowels are moving somewhat but his memory is poor Family the bedside [facility] placement is the only option Lumbar stenosis will likely need to be addressed but he's to weekend and will need rehabilitation prior to even seeking a surgical consultation Labs stable Review of Systems General: Fatigue, Malaise Musculoskeletal: back pain Objective Exam Vital Signs Vital Signs Date Time Temp Pulse Resp B/P (MAP) Pulse Ox O2 Delivery O2 Flow Rate FiO2 01/08/18 07:59 98.1 79 16 137/71 (93) 99 Room Air Capillary Refill : Less Than 3 Seconds General Appearance: No Apparent Distress, WD/WN, Chronically ill Respiratory: Lungs Clear, Normal Breath Sounds Cardiovascular: Regular Rate, Rhythm, No Edema Neurologic/Psychiatric: Alert, Depressed Affect, Other (poor recall) Results/Procedures Lab Laboratory Tests 01/08/18 06:06 Patient resulted labs reviewed. Assessment/Plan Assessment and Plan Assess & Plan/Chief Complaint Assessment per PCP Dr Garcia: (1) UTI (urinary tract infection) Status: Acute Assessment & Plan: Ceftriaxone started presumptively, awaiting culture. No evidence of sepsis. 01/02- culture with aerococcus, should be sensitive to PCN, complete seven days of ceftriaxone Qualifiers: Qualified Codes: N30.00 - Acute cystitis without hematuria (2) Low back pain Status: Acute Assessment & Plan: Xray with degenerative changes and scoliosis. Given weakness and urinary incontinence, MRI ordered, machine is currently down, hopefully will be obtained this pm (01/04) and if unremarkable, will discuss further with medical legal investigator whether he can go to rehab or not. 01/05 MRI with fairly significant lumbar stenosis, however given the length of time of his issues- up to last 2-3 months with urinary incontinence, do not suspect emergent situation. Would recommend seeing spine surgery for recommendations as soon as possible, however. Mobility is not adequate to go home or to tolerate therapy for inpatient rehab. Unable to place in fdc or exterminator helper nursing at this time due to weekend/holiday and need for support services. Continue PT. Qualifiers: Qualified Codes: M54.5 - Low back pain (3) Fall Status: Acute Assessment & Plan: Combination likely of arthritis, deconditioning and infection. PT to eval. Likely will need home PT at least on d/c. Qualifies for inpatient rehab, waiting on insurance approval. 01/04 denied at this time due to concern about back pain and inability to tolerate enough therapy. Qualifiers: Qualified Codes: W19.XXXA - Unspecified fall, initial encounter (4) Hypertension Status: Chronic Assessment & Plan: Resume home medication 01/04 elevated in spite of home enalapril, add HCTZ 01/06 still markedly high, add amlodipine Qualifiers: Qualified Codes: I10 - Essential (primary) hypertension (5) Hyperlipidemia Status: Chronic Assessment & Plan: Resume home pravastatin, consider changing to more potent statin (6) Diabetes mellitus with hyperglycemia Status: Chronic Assessment & Plan: Hold home glipizide and Victoza, continue metformin. Diabetic diet and sliding scale insulin as needed. 01/04 resume home glipizide 20 mg dose, continue to hold extra 10 mg glipizide and Victoza. 01/05 persistent hyperglycemia, resume second dose of glipizide. Qualifiers: Qualified Codes: E11.65 - Type 2 diabetes mellitus with hyperglycemia (7) Chronic kidney disease Status: Chronic Assessment & Plan: Stable since 2011, monitor. 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 (10) DVT prophylaxis Status: Acute Assessment & Plan: On therapeutic apixaban Plan: Continue abx Monitor pain Monitor labs Needs [facility] Lumbar spinal stenosis will be addressed when recovery adequate to undergo surgical consultation Diagnosis/Problems Diagnosis/Problems (1) UTI (urinary tract infection) Status: Acute (2) Lumbar stenosis Status: Chronic Assessment & Plan: Non-emergent symptoms and is not strong enough to seek surgical opinion at this time Qualifiers: Neurogenic claudication status: without neurogenic claudication Qualified Codes: M48.061 - Spinal stenosis, lumbar region without neurogenic claudication (3) Falls frequently Status: Acute (4) Chronic low back pain Status: Chronic Qualifiers: Back pain laterality: unspecified Sciatica presence: unspecified whether sciatica present Qualified Codes: M54.5 - Low back pain; G89.29 - Other chronic pain (5) Cognitive decline Status: Chronic (6) Renal insufficiency Status: Chronic (7) Diabetes mellitus with hyperglycemia Status: Chronic Qualifiers: Diabetes mellitus type: type 2 Diabetes mellitus residential insulin use: without exterminator helper use Qualified Codes: E11.65 - Type 2 diabetes mellitus with hyperglycemia (8) History of DVT (deep vein thrombosis) Status: Chronic (9) Presence of IVC filter Status: Chronic (10) Hypertension Status: Chronic Qualifiers: Hypertension type: essential hypertension Qualified Codes: I10 - Essential (primary) hypertension (11) Hyperlipidemia Status: Chronic Qualifiers: Hyperlipidemia type: mixed hyperlipidemia Qualified Codes: E78.2 - Mixed hyperlipidemia Clinical Quality Measures DVT/VTE Risk/Contraindication: Risk Factor Score Per Nursin RFS Level Per Nursing on Admit: 4+=Very High CORA JACK DO January 08, 2018 10:23
--- NOTE | 2018-01-08 13:40 | Physical Therapy Progress Note ---
Therapy Progress Note Patient refused treatment this afternoon. Patient states he is "dog tired" and has 7/10 pain in his low back. Nurse notified of his pain. Patient states he ambulated a little this morning when he got his shower and was not willing to participate this afternoon. Patient is supposed to go to a halfway tomorrow. Will check back in the morning. MAGDIEL STACY PT January 08, 2018 13:40
[2018-01-08 15:30] VITALS: BP 147/65
--- NOTE | 2018-01-08 15:44 | Occupational Ther Daily Note ---
OT Current Status-Daily Note Subjective Pt seen in room, up in bed, agreeable to OT. No pain mentioned but he said he was having cramps in his L foot Appearance Alert, cooperative Mental Status/Objective Functional [place] Measure 0=Not Assessed/NA 4=Minimal Assistance 1=Total Assistance 5=Supervision or Setup 2=Maximal Assistance 6=Modified [place] 3=Moderate Assistance 7=Complete [place] ADL-Treatment Pt reported that he has been up to shower and toilet today. He said it took one person to get him to the shower and he was able to wash all areas except his back. It took one person as well to take him to the bathroom, per his report, and he used tall toilet with grab bar. He is hopeful to be discharged tomorrow to skilled facility for therapy. Other Treatment Pt did 10 reps bilat UE exercise, working on shoulders, elbows, forearms and wrists. He was able to follow visual directions and track repetitions himself. Exercises to strengthen arms to help with transfers and ADLs. Pt left up in room , all needs met. Education OT Patient Education: Exercise program, Purpose of tx/functional activities Teaching Recipient: Patient Teaching Methods: Demonstration, Discussion Response to Teaching: Verbalize Understanding, Return Demonstration OT Short Term Goals Short Term Goals 1=Demonstrate adherence to instructed precautions during ADL tasks. 2=Patient will verbalize/demonstrate understanding of assistive devices/ modifications for ADL. 3=Patient will improve strength/tolerance for activity to enable patient to perform ADL's. OT [facility] Goals [facility] Goals Time Frame: Jan 24, 2018 Eating (FIM): 7 Grooming(FIM): 6 Bathing(FIM): 5 Upper Body Dressing(FIM): 6 Lower Body Dressing(FIM): 6 Toileting(FIM): 6 Toilet/Commode Transfer(FIM): 6 Shower Transfer(FIM): 6 Additional Goals: 1-Demonstrate ADL Tasks, 2-Verbalize Understanding, 3- ImproveStrength/Ct 1=Demonstrate adherence to instructed precautions during ADL tasks. 2=Patient will verbalize/demonstrate understanding of assistive devices/ modifications for ADL. 3=Patient will improve strength/tolerance for activity to enable patient to perform ADL's. OT Education/Plan Discharge Recommendations Plan/Recommendations: Continue POC Treatment Plan/Plan of Care Patient would benefit from OT for education, treatment and training to promote independence in ADL's, mobility, safety and/or upper extremity function for ADL' s. Plan of Care: ADL Retraining, Functional Mobility, UE Funct Exercise/Act, UE Neuromus Re-Ed/Coord Treatment Duration: Jan 25, 2018 Frequency: 5 times per week Estimated Hrs Per Day: .25 hour per day Agreement: Yes Rehab Potential: Fair Time/GCodes Start Time: 15:05 Stop Time: 15:20 Total Time Billed (hr/min): 15 Billed Treatment Time visit, 15 minutes exercise PT/OT Therapy GCodes Therapy Functional Limitation: Physical Therapy Test(s)/Tool used to determine: FIM Functional Limitation-Current Charge Code: MOBCUR Modifier: CL Functional Limitation-Goal Charge Code: MOBGOAL Modifier: ARISTEO ENGLAND OT January 08, 2018 15:44
[2018-01-08] MEDS: glipiZIDE XL 10 MG (GLUCOTROL XL) TAB PO SCH (20:54)
[2018-01-08] MEDS: SIMvastatin 20 MG (ZOCOR) TAB PO SCH (20:54)
[2018-01-09] VITALS: BP 189/84
[2018-01-09] MEDS: HYDROcodone/APAP 5 MG/325 MG (LORTAB) TAB PO PRN (05:03)
[2018-01-09] MEDS: glipiZIDE 5 MG (GLUCOTROL) TAB PO SCH (05:41)
[2018-01-09] MEDS: inSUlin ASPART (NovoLOG) 1 UNIT/0.01 ML (CHARGE PER UNIT) SC SCH ×2 (05:42→11:01)
[2018-01-09] MEDS: metFORMIN 500 MG (GLUCOPHAGE) TAB PO SCH (05:42)
[2018-01-09 08:07] VITALS: BP 163/77
[2018-01-09] MEDS ORDERED: AMLO5TAB2 PO (08:29)
[2018-01-09] MEDS ORDERED: HYDR25TA4 PO (08:29)
[2018-01-09] MEDS ORDERED: LACT20SO2 PO (08:29)
[2018-01-09] MEDS ORDERED: ACET-77 PO (08:29)
[2018-01-09] MEDS ORDERED: ACHD5005 PO (08:29)
--- NOTE | 2018-01-09 08:32 | Discharge Inst-Skilled Nursing ---
Discharge Inst-Skilled NF Patient Instructions Patient Problems: s/p UTI Debility Lumbar spine stenosis with chronic back pain Constipation Cognitive decline Goal: Return to independent living Consult/Follow Up/Orders Follow Up Appt.: [facility] rounds Skilled NF Admit to: [facility] Certification (SNF) I certify that SNF services are required to be given on an inpatient basis because of the above named patient's need for fpc care on a continuing basis for the conditions(s) for which he/she was receiving inpatient hospital services prior to his/her transfer to the SNF. Detention Facility Order: Nursing Services, Cardiovascular Or Nurse-Evaluate & Treat, Physical Therapy-Evaluate & Treat, Speech Language-Evaluate & Treat Discharge Diet: ADA Diet Daily Activity as Tolerated: Yes New & Resume Previous Orders Michelle Remy January 09, 2018 08:31 MICHELLE REMY DO January 09, 2018 08:32
--- NOTE | 2018-01-09 08:33 | Discharge Summary-Hospitalist ---
Diagnosis/Chief Complaint Date of Admission January 02, 2018 at 13:30 Date of Discharge Discharge Date: January 09, 2018 Discharge Diagnosis (1) UTI (urinary tract infection) Status: Resolved (2) Lumbar stenosis Status: Chronic Assessment & Plan: Non-emergent symptoms and is not strong enough to seek surgical opinion at this time (3) Falls frequently Status: Acute (4) Chronic low back pain Status: Chronic (5) Cognitive decline Status: Chronic (6) Renal insufficiency Status: Chronic (7) Diabetes mellitus with hyperglycemia Status: Chronic (8) History of DVT (deep vein thrombosis) Status: Chronic (9) Presence of IVC filter Status: Chronic (10) Hypertension Status: Chronic (11) Hyperlipidemia Status: Chronic Discharge Summary Discharge Physical Exam Allergies: Coded Allergies: No Known Drug Allergies (Unverified , 08/08/10) Vitals & I&Os Vital Signs Date Time Temp Pulse Resp B/P (MAP) Pulse Ox O2 Delivery O2 Flow Rate FiO2 01/09/18 08:07 97.7 83 20 163/77 (105) 96 Room Air General Appearance: Alert, Oriented X3, Cooperative Respiratory: Clear to Auscultation, Normal Air Movement Neuro: Normal Gait, Normal Speech, Strength at 5/5 X4 Ext Hospital Course Hospital course: Patient had a lengthy hospital course he was admitted placed on empiric antibiotics for UTI and monitor closely with supportive care. Severe back pain was evaluated with MRI revealing lumbar stenosis and due to the fact that that is consistent with chronic symptoms an nonemergent issue he will have close follow-up with spine surgery consultation and further evaluation. Overall patient stabilized all home meds were restarted cognitive decline noted so he was placed in a alf for skilled care and [facility] was notified of the admission to the alf on their service. Pain medication will be continued and will have evaluation for the lumbar stenosis in the very near future. Labs (last 24 hrs) Laboratory Tests 01/08/18 10:21: Glucometer 254H 01/08/18 15:32: Glucometer 219H 01/08/18 20:52: Glucometer 224H 01/09/18 05:39: Glucometer 206H Microbiology 12/31/17 Urine Culture - Final, Complete Aerococcus urinae See Report Patient resulted labs reviewed. Pending Labs Laboratory Tests 01/09/18 05:39: Glucometer 206 Discussion & Recommendations Discharge Planning: <30 minutes discharge planning Discharge Home Medications: Active Scripts Active Lactulose 20 Gm/30 Ml Solution 10 Gm PO BID 30 Days Hydrochlorothiazide 25 Mg Tablet 25 Mg PO DAILY 30 Days Acetaminophen 500 Mg Tablet 1,000 Mg PO Q8H PRN 30 Days Hydrocodone/Acetaminophen 5/325mg Tablet (Acetaminophen/Hydrocodone Bitart) 1 Tab Tab 1 Tab PO Q6H PRN Amlodipine Besylate 5 Mg Tablet 5 Mg PO DAILY 30 Days Reported Victoza 3-Zurdo (Liraglutide) 0.6 Mg/0.1 Ml Pen.injctr 1.8 Mg SC DAILY Metformin HCl 1,000 Mg Tablet 1,000 Mg PO BID Glipizide 10 Mg Tablet 20 Mg PO DAILY TAKES 2 (10MG) TABLETS Aspirin EC (Aspirin) 81 Mg Tablet.dr 81 Mg PO BID Glipizide 10 Mg Tablet 10 Mg PO HS Pravastatin Sodium 40 Mg Tablet 40 Mg PO DAILY Enalapril Maleate 20 Mg Tablet 20 Mg PO DAILY Eliquis (Apixaban) 5 Mg Tablet 5 Mg PO BID Instructions to patient/family Please see electronic discharge instructions given to patient. Clinical Quality Measures DVT/VTE Risk/Contraindication: Risk Factor Score Per Nursin RFS Level Per Nursing on Admit: 4+=Very High Problem Qualifiers (1) UTI (urinary tract infection): Urinary tract infection type: site unspecified Hematuria presence: without hematuria Qualified Codes: N39.0 - Urinary tract infection, site not specified (2) Lumbar stenosis: Neurogenic claudication status: without neurogenic claudication Qualified Codes: M48.061 - Spinal stenosis, lumbar region without neurogenic claudication (3) Chronic low back pain: Back pain laterality: unspecified Sciatica presence: unspecified whether sciatica present Qualified Codes: M54.5 - Low back pain; G89.29 - Other chronic pain (4) Diabetes mellitus with hyperglycemia: Diabetes mellitus type: type 2 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
[2018-01-09] MEDS: POLYETHYLENE GLYCOL 17 GM (MIRALAX) PACK PO SCH (08:56)
[2018-01-09] MEDS: HYDROCHLOROTHIAZIDE 25 MG (HCTZ) TAB PO SCH (08:56)
[2018-01-09] MEDS: ASPIRIN E.C. 81 MG (ECOTRIN) TAB PO SCH (08:56)
[2018-01-09] MEDS: APIXABAN 5 MG (ELIQUIS) TABLET PO SCH (08:56)
[2018-01-09] MEDS: amLODIPine 5 MG (NORVASC) TAB PO SCH (08:56)
[2018-01-09] MEDS: LACTULOSE SYRUP 10GM/15ML (ENULOSE) 30ML UDC PO SCH (08:56)
[2018-01-09] MEDS: ENALAPRIL 10 MG (VASOTEC) TAB PO SCH (08:56)
== END 2018-01-09 15:00 | DRG 690 ==
LOC: EDUNIT# 15:12 → ER 15:13 → UNDOADMOB 18:50 → 4TH 18:50 → INTOOBSV 01-02 13:30 → OBSVTOIN 01-02 13:30 → UNDODISIN 01-09 15:00
PROVIDERS: ADMIT Family Medicine; ATTEND Family Medicine
DX: N30.00 Acute cystitis without hematuria (principal); E11.65 Type 2 diabetes mellitus with hyperglycemia; I12.9 Hypertensive chronic kidney disease with stage 1 through stage 4 chronic kidney disease, or unspecified chronic kidney disease; N18.9 Chronic kidney disease, unspecified; M48.061 Spinal stenosis, lumbar region without neurogenic claudication; M51.36 Other intervertebral disc degeneration, lumbar region; E78.2 Mixed hyperlipidemia; M17.0 Bilateral primary osteoarthritis of knee; R29.898 Other symptoms and signs involving the musculoskeletal system; Z66 Do not resuscitate; F09 Unspecified mental disorder due to known physiological condition; W19.XXXA Unspecified fall, initial encounter; Y92.002 Bathroom of unspecified non-institutional (private) residence as the place of occurrence of the external cause; Z79.84 Long term (current) use of oral hypoglycemic drugs; Z86.718 Personal history of other venous thrombosis and embolism; Z79.01 Long term (current) use of anticoagulants; Z87.891 Personal history of nicotine dependence; Z95.828 Presence of other vascular implants and grafts
CPT/HCPCS: 36415; 71045; 72100; 72148; 80048; 80053; 81000; 82550; 82962; 83735; 83880; 84484; 85007; 85025; 85027; 87088; 93005; G0378

== ENCOUNTER → 2018-05-21 | Outpatient (CLI) | payer MEDICARE ==
[~2018-05-21] MED LIST changes: +ACET-77 PO; +ACHD5005 PO; +AMLO5TAB7 PO; +APIX5TAB PO; +ASPI-983 PO; +ENAL20TA PO; +HYDR25TA4 PO; +LACT20SO2 PO; +LIRA0.6P3 SC; +METF-399 PO; +PRAV40TA2 PO
== END ==
LOC: CARD 09:11
PROVIDERS: ATTEND Registered Nurse
DX: R60.0 Localized edema (principal)
CPT/HCPCS: 93306